=== PATIENT | male | born 1955 | race Caucasian/White ===

== ENCOUNTER 2020-02-18 03:29 | Outpatient (CLI) | payer MEDICARE, SELFPAY ==
[2020-02-19 20:07] LABS: SARS-CoV-2 RNA PCR Negative
== END 2020-02-18 03:30 | disposition home or self-care (01) ==
PROVIDERS: PCP Internal Medicine; Visit Provider Internal Medicine Gastroenterology
DX: Z01.812 Encounter for preprocedural laboratory examination (principal); Z11.59 Encounter for screening for other viral diseases
CPT/HCPCS: 87635; C9803; U0003

== ENCOUNTER 2020-02-20 02:19 | Day surgery (SDC) | payer MEDICARE, SELFPAY ==
[2020-02-12 10:13] VITALS: BMI 31.6
--- NOTE | 2020-02-19 12:47 | WPDANESEPPF ---
Anes - Initial Pre Proc Eval Procedure: Operation Date: 02/20/20 07:30 Proposed Procedures p Screening Colonoscopy - Cornel Payne MD Date/Time: 02/19/20 12:47 Surgeon: Cornel Payne MD Pre Op Diagnosis: Hx Colon Polyps Patient Data Age: 64 Gender: M Height: 5 ft 10 in Weight: 100 kg Allergies Allergy/AdvReac Type Severity Reaction Status Date / Time No Known Allergies Allergy Verified 02/20/20 06:18 Home Medications Medication Instructions Recorded Confirmed Type empagliflozin 10 mg tablet See Rx Instructions .ROUTE 01/02/20 02/12/20 Rx .COMPLEX #90 tablet lisinopril 20 mg tablet 20 mg PO DAILY #90 tablet 01/14/20 02/12/20 Rx pravastatin 20 mg tablet 20 mg PO DAILY #90 tablet 01/14/20 02/12/20 Rx glimepiride 4 mg tablet 4 mg PO QAM #90 tablet 01/30/20 02/12/20 Rx metformin 500 mg tablet 1,000 mg PO BID #360 tablet 01/30/20 02/12/20 Rx paroxetine HCl 20 mg tablet 20 mg PO DAILY #90 tablet 01/30/20 02/12/20 Rx Patient hx anesthesia problems: none Family hx anesthesia problems: none PMFSH Past Medical History Medical History (Updated 02/19/20 @ 12:47 by Anam Kemp MD) Diabetes Essential (primary) hypertension Hyperlipidemia Social History Social History Smoking status: Current every day smoker Second hand tobacco smoke exposure: No Alcohol intake: current Anes - Eval Final PreProcedure Day of Procedure 02/19/20 12:47 Patient weight: overweight Heart: regular rate and rhythm Lungs: clear to auscultation Airway: Mallampati scale class II Neurological: alert and oriented Last oral intake: >/= 8 hours ASA classification: III Emergent: no Anesthetic plan: proceed Anesthesia type and monitoring: general GIVS and standard monitoring Informed Consent: The patient's anesthetic plan and its attendant risks and benefits were discussed with the patient/family/POA. Questions were solicited and answers provided to the satisfaction of the patient/family/POA.
[2020-02-20 06:21] VITALS: BP 130/84; PULSE 86; RESP 21; TEMP 36.3; O2SAT 98; BMI 31.6
[2020-02-20] MEDS: LACTATED RINGERS 1,000 ML 150 ML IV CONT (06:35)
[2020-02-20 06:44] LABS: Glucose Point of Care 186 (65-105)
[2020-02-20 08:00] VITALS: BP 124/72; PULSE 74; RESP 30; O2SAT 97
--- NOTE | 2020-02-20 08:00 | P.CONGI_ITS ---
Assessment and Plan Assessment and plan (1) History of colon polyps: Code(s): Z86.010 - Personal history of colonic polyps Status: Acute Assessment and Plan: Patient has a history of colon polyps 10 years ago. Plan is for surveillance colonoscopy at this time. Further recommendations will be given after endoscopy. GI Consult Note Consult date/time: 02/20/20 08:00 HPI: James Barba is a 64 year old male Seen in evaluation at the request of Dr. Artemio Hernández. patient presents for screening colonoscopy. Patient's current weight appetite bowel movements are normal. Patient has a prior history of colon polyps about 10 years ago. Most recent colonoscopy 5 years ago was unrem arkable. Family history is noncontributory. Patient states his current weight appetite bowel movements are normal. He denies abdominal pain. No blood in his stool. Review of Systems Review of Systems: All systems reviewed & are unremarkable except as noted in HPI and below PMFSH Past Medical History Medical History Diabetes Essential (primary) hypertension Hyperlipidemia Family History Family History Mother Hypertension Father Family history of genitourinary disease Family history of Alzheimer's disease Sibling Family history of lung disease Social History Social History Smoking status: Current every day smoker Second hand tobacco smoke exposure: No Alcohol intake: current Meds Home Medications and Allergies Home Medications Medication Instructions Recorded Confirmed Type empagliflozin 10 mg tablet See Rx Instructions .ROUTE 01/02/20 02/12/20 Rx .COMPLEX #90 tablet lisinopril 20 mg tablet 20 mg PO DAILY #90 tablet 01/14/20 02/12/20 Rx pravastatin 20 mg tablet 20 mg PO DAILY #90 tablet 01/14/20 02/12/20 Rx glimepiride 4 mg tablet 4 mg PO QAM #90 tablet 01/30/20 02/12/20 Rx metformin 500 mg tablet 1,000 mg PO BID #360 tablet 01/30/20 02/12/20 Rx paroxetine HCl 20 mg tablet 20 mg PO DAILY #90 tablet 01/30/20 02/12/20 Rx Allergies Allergy/AdvReac Type Severity Reaction Status Date / Time No Known Allergies Allergy Verified 02/20/20 06:18 Vital Signs Vital Signs - 24 hr 02/20/20 06:21 Temperature 97.4 F L Pulse Rate 86 Respiratory Rate 21 H Blood Pressure 130/84 Pulse Oximetry 98 Exam Narrative: Exam Narrative: Physical exam reveals patient to be alert. Vital signs stable. HEENT exam unremarkable. Lungs are clear to auscultation and percussion. Heart is without murmur or extra sounds. Abdominal exam bowel sounds are present soft nontender with no organomegaly. Digital external rectal exam is normal.
[2020-02-20 08:10] VITALS: BP 127/83; PULSE 73; RESP 16; O2SAT 98
[2020-02-20 08:20] VITALS: BP 140/78; PULSE 70; RESP 19; O2SAT 99
== END 2020-02-20 08:43 | disposition home or self-care (01) ==
PROVIDERS: PCP Internal Medicine; Visit Provider Internal Medicine Gastroenterology
PROC: 0DJD8ZZ Inspection of Lower Intestinal Tract, Via Natural or Artificial Opening Endoscopic (ICD-10-PCS; CPT 45378; principal; 2020-02-20 07:30)
DX: Z12.11 Encounter for screening for malignant neoplasm of colon (principal); K64.8 Other hemorrhoids; Z86.010 Personal history of colon polyps; I10 Essential (primary) hypertension; E11.9 Type 2 diabetes mellitus without complications; E78.5 Hyperlipidemia, unspecified; F17.200 Nicotine dependence, unspecified, uncomplicated
CPT/HCPCS: G0105; 87635; C9803; J2704; J7120; U0003

== ENCOUNTER 2020-07-10 07:02 | Outpatient (NON) | payer MEDICARE, SELFPAY ==
[2020-07-10 22:01] LABS: SARS-CoV-2 RNA PCR Negative
== END 2020-07-10 07:03 ==
LOC: ANHCOVIDDT 07:15
PROVIDERS: PCP Internal Medicine; Visit Provider Internal Medicine
DX: Z20.828 Contact with and (suspected) exposure to other viral communicable diseases (principal); J02.9 Acute pharyngitis, unspecified
CPT/HCPCS: 87635; C9803; U0003

== ENCOUNTER → 2020-09-29 14:21 | Outpatient (CLI) | payer MEDICARE, SELFPAY ==
--- NOTE | ~2020-09-29 | XR_ITS ---
EXAMINATION: XR knee LT 3V DATE: 09/29/2020 14:40 INDICATION: Left knee pain. TECHNIQUE: 3 views of left knee were obtained. COMPARISON: Left knee radiographs 06/18/2005 FINDINGS: There is lateral subluxation of patella. No fracture. There is moderate osteoarthritis of l ateral and patellofemoral compartments and mild osteoarthritis of medial compartment. There is a mode rate-sized knee joint effusion. IMPRESSION: 1. Moderate left knee osteoarthritis. 2. Moderate-sized left knee joint effusion. Reviewed, dictated and finalized at location A. NICS REPAIR TECHNICIAN
--- NOTE | ~2020-09-29 | XR_ITS ---
EXAMINATION: XR knee RT 3V DATE: 09/29/2020 14:40 INDICATION: Right knee pain. TECHNIQUE: 3 views of right knee were obtained. COMPARISON: None. FINDINGS: Bone alignment is normal. No fracture. There is mild tricompartmental osteoarthritis. No kn ee joint effusion. IMPRESSION: 1. Mild right knee osteoarthritis. Reviewed, dictated and finalized at location A. NDS CREW SUPERVISOR
== END ==
PROVIDERS: PCP Internal Medicine; Visit Provider Internal Medicine
DX: M17.0 Bilateral primary osteoarthritis of knee (principal); M25.462 Effusion, left knee
CPT/HCPCS: 73562

== ENCOUNTER 2023-04-27 10:26 | Outpatient (CLI) | payer MEDICARE, SELFPAY ==
--- NOTE | 2023-04-27 10:45 | ECG_ITS ---
Measurements Intervals [place] Rate: 75 P: 54 MN: 192 QRS: -38 QRSD: 105 T: 16 QT: 376 QTc: 421 Interpretive Statements SINUS RHYTHM WITH OCCASIONAL SUPRAVENTRICULAR PREMATURE COMPLEXES MARKED LEFT AXIS DEVIATION [QRS AXIS < -30] NO PREVIOUS ECG AVAILABLE FOR COMPARISON Electronically Signed On 04-27-2023 19:15:44 CDT by Stacey Guy M.D.
== END 2023-04-27 10:27 | disposition home or self-care (01) ==
LOC: ANHIMG 10:30
PROVIDERS: PCP Internal Medicine; Visit Provider Anesthesiology
DX: M72.0 Palmar fascial fibromatosis [Dupuytren] (principal); Z01.818 Encounter for other preprocedural examination
CPT/HCPCS: 93005

== ENCOUNTER 2023-05-05 05:43 | Day surgery (SDC) | payer MEDICARE, SELFPAY ==
[2023-04-19 10:41] VITALS: BMI 32.5
--- NOTE | 2023-05-04 20:07 | WPDANESEPPF ---
Anes - Initial Pre Proc Eval Procedure: Operation Date: 05/05/23 07:30 Proposed Procedures p Left Small, Ring, Middle Finger and Thumb Dupuytren's Fasciectomy, Possible Proximal Interphalangeal Capsulotomy - Frandy Rios MD Date/Time: 05/04/23 20:07 Surgeon: Frandy Rios MD Pre Op Diagnosis: Palmar Fascial Fibromatosis,Dupuytrens Contracture Patient Data Age: 67 Gender: M Height: 1.75 m Weight: 100 kg Allergies Allergy/AdvReac Type Severity Reaction Status Date / Time No Known Allergies Allergy Verified 05/05/23 06:50 Home Medications Medication Instructions Recorded Confirmed Type empagliflozin 25 mg tablet 25 mg PO QAM 90 days #90 tabs 04/05/22 05/05/23 Rx (Jardiance) blood sugar diagnostic (OneTouch #100 ea 08/27/22 05/05/23 Rx Ultra Test strips) mecobalamin (vitamin B12) 1,000 1,000 mcg PO DAILY #90 tabs 09/24/22 05/05/23 Rx mcg chewable tablet atorvastatin 20 mg tablet 20 mg PO DAILY 10/14/22 05/05/23 History metformin 500 mg tablet 1,000 mg PO BID #360 tabs 12/16/22 05/05/23 Rx sildenafil 100 mg tablet 100 mg PO DAILY PRN sexual 02/17/23 05/05/23 Rx activity #8 tabs glimepiride 1 mg tablet 1 mg PO QPM #180 tabs 02/22/23 05/05/23 Rx semaglutide 0.25 mg or 0.5 mg (2 0.25 mg (0.368 mL) subcut WEEKLY 02/22/23 05/05/23 Rx mg/3 mL) subcutaneous pen injector #3 mL (Ozempic) paroxetine HCl 20 mg tablet 20 mg PO DAILY #90 tabs 03/04/23 05/05/23 Rx lisinopril 20 mg tablet 20 mg PO DAILY #90 tabs 04/17/23 05/05/23 Rx Patient hx anesthesia problems: none Family hx anesthesia problems: none Results Review: All pre-operative results and documents have been reviewed as part of the pre-operative evaluation. [facility] Past Medical History Medical History (Updated 08/14/23 @ 10:23 by Frandy Rios MD) Diabetes Dupuytren's contracture of both hands Epidermoid cyst of face Essential (primary) hypertension Fatigue History of colon polyps Hyperlipidemia Joint contracture Numbness in both hands Other fatigue Prostate cancer screening Psoriasis, unspecified Pure hypercholesterolemia Sore throat Type 2 diabetes mellitus with other specified complication Type 2 diabetes mellitus without complications Surgical History Surgical History History of hand surgery History of left knee surgery meniscus repair Hx of repair of rotator cuff right shoulder Family History Family History Mother Hypertension Father Family history of genitourinary disease Family history of Alzheimer's disease Sibling Family history of lung disease Social History Social History Smoking packs per day: 1 Smoking cigarettes per day: 20.0 Years smoked: 40 Smoking pack-years: 40.00 Smoking status: Former smoker Tobacco type: cigarettes Second hand tobacco smoke exposure: No Smoking end date: 07/29/19 Alcohol intake: current Alcohol use details: 2-3 x per week Substance use: never Substance use type: does not use Lack of Transportation: No Lack of Food: Never True Current Housing: I Have Housing Concerned About Future Housing: No Difficulty Paying Gas/Electric Bills: No Difficulty Paying for Meds: No Currently Unemployed: No Education: High School Diploma/GED Difficulty w/ Childcare or Family Care: No Living arrangements: with family Spiritual care concerns: No Anes - Eval Final PreProcedure Day of Procedure 05/04/23 20:07 Patient weight: obese Heart: regular rate and rhythm Lungs: clear to auscultation Airway: Mallampati scale class II Neurological: alert and oriented Last oral intake: >/= 8 hours ASA classification: III Emergent: no Anesthetic plan: proceed Anesthesia type and monitoring: general LMA and standard monitoring Results Review: All pre-operative r
[2023-05-05] VITALS (7 sets, daily range): BP systolic 95–140; BP diastolic 45–92; PULSE 68–70; RESP 14–20; TEMP 36.3–36.7; O2SAT 96–100
[2023-05-05 06:46] LABS: Glucose Point of Care 147 mg/dl (65-105)
[2023-05-05] MEDS: LACTATED RINGERS 1,000 ML 30 ML IV CONT (06:59)
--- NOTE | 2023-05-05 07:18 | WPDHPUPDATE1 ---
History and Physical Update Update Date/Time: 05/05/23 07:18 Patient seen and examined in pre-operative holding area. No interval change in medical history or symptoms. Continues to desire to proceed with left small, ring, middle, thumb fasciectomy . Reviewed [id number], post-op expectations and risks including but not limited to bleeding, infection, injury to tendon/nerve/vessel, decreased hand function, stiffness, RSD, recurrence, incomplete release, no change or worsening of symptoms. Patient stated understanding and signed the consent form wishing to proceed.
--- NOTE | 2023-05-05 07:26 | PM.HPGS ---
History of Present Illness History of Present Illness Consent: Risks, benefits, and alternatives have been discussed and questions answered. Patient agrees to proceed with procedure. Chief complaint: Palmar Fascial Fibromatosis,Dupuytrens Contracture Narrative: James Barba is a 67 year old male here for left hand surgery. no interval change. see h&p update Review of Systems Review of Systems: systems reviewd and all within normal limits PMFSH Past Medical History Medical History (Updated 03/07/23 @ 10:23 by Frandy Rios MD) Diabetes Dupuytren's contracture of both hands Epidermoid cyst of face Essential (primary) hypertension Fatigue History of colon polyps Hyperlipidemia Joint contracture Numbness in both hands Other fatigue Prostate cancer screening Psoriasis, unspecified Pure hypercholesterolemia Sore throat Type 2 diabetes mellitus with other specified complication Type 2 diabetes mellitus without complications Surgical History Surgical History History of hand surgery History of left knee surgery meniscus repair Hx of repair of rotator cuff right shoulder Family History Family History Mother Hypertension Father Family history of genitourinary disease Family history of Alzheimer's disease Sibling Family history of lung disease Social History Social History Smoking packs per day: 1 Smoking cigarettes per day: 20.0 Years smoked: 40 Smoking pack-years: 40.00 Smoking status: Former smoker Tobacco type: cigarettes Second hand tobacco smoke exposure: No Smoking end date: 07/29/19 Alcohol intake: current Alcohol use details: 2-3 x per week Substance use: never Substance use type: does not use Lack of Transportation: No Lack of Food: Never True Current Housing: I Have Housing Concerned About Future Housing: No Difficulty Paying Gas/Electric Bills: No Difficulty Paying for Meds: No Currently Unemployed: No Education: High School Diploma/GED Difficulty w/ Childcare or Family Care: No Living arrangements: with family Spiritual care concerns: No Meds Home Medications and Allergies Home Medications Medication Instructions Recorded Confirmed Type empagliflozin 25 mg tablet 25 mg PO QAM 90 days #90 tabs 04/05/22 05/05/23 Rx (Jardiance) blood sugar diagnostic (OneTouch #100 ea 08/27/22 05/05/23 Rx Ultra Test strips) mecobalamin (vitamin B12) 1,000 1,000 mcg PO DAILY #90 tabs 09/24/22 05/05/23 Rx mcg chewable tablet atorvastatin 20 mg tablet 20 mg PO DAILY 10/14/22 05/05/23 History metformin 500 mg tablet 1,000 mg PO BID #360 tabs 12/16/22 05/05/23 Rx sildenafil 100 mg tablet 100 mg PO DAILY PRN sexual 02/17/23 05/05/23 Rx activity #8 tabs glimepiride 1 mg tablet 1 mg PO QPM #180 tabs 02/22/23 05/05/23 Rx semaglutide 0.25 mg or 0.5 mg (2 0.25 mg (0.368 mL) subcut WEEKLY 02/22/23 05/05/23 Rx mg/3 mL) subcutaneous pen injector #3 mL (Ozempic) paroxetine HCl 20 mg tablet 20 mg PO DAILY #90 tabs 03/04/23 05/05/23 Rx lisinopril 20 mg tablet 20 mg PO DAILY #90 tabs 04/17/23 05/05/23 Rx Allergies Allergy/AdvReac Type Severity Reaction Status Date / Time No Known Allergies Allergy Verified 05/05/23 06:50 Vital Signs Vital Signs - 24 hr 05/05/23 06:30 Temperature 36.3 C L Pulse Rate 68 Respiratory Rate 20 Blood Pressure 140/92 H Pulse Oximetry 99 Oxygen Delivery Room Air Exam Extrem: Other: CV: RRR Pulm: ctab hand exam unchanged Assessment and Plan Assessment and plan (1) Dupuytren's contracture of both hands: Code(s): M72.0 - Palmar fascial fibromatosis [Dupuytren] Status: Acute Plan cont with surgery as noted in H&P update
[2023-05-05] MEDS: ceFAZolin SODIUM 2 GM/20 ML SW SYRINGE IV PUSH (07:34)
[2023-05-05] MEDS: LIDOCAINE HCL 1% LOCAL INJ 20 ML VIAL 5 ML INFILTRATE (07:40)
[2023-05-05] MEDS: BUPivacaine HCL 0.25% PF 10 ML VIAL 5 ML INFILTRATE (07:40)
--- NOTE | 2023-05-05 09:08 | W.PM.PROC2 ---
Procedure Note - Detailed Date of Procedure 05/05/23 Pre-op Diagnosis left thumb, small, ring, middle finger dupuytren contracture Post-op Diagnosis Same Procedure Performed left thumb, small, ring, middle finger palmar fasciectomy and left small and ring finger pipjoint capsulotomy Surgeon Frandy Rios MD Anesthesia General Description of Procedure Patient was seen in the preoperative holding area. The left fingers were marked and consent form signed. Patient was taken back to the operating room on the stretcher in the supine position. Time-out was performed with anaesthesia surgeon staff a Gram patient's name site of surgery performed. SCDs were placed the larger was inflated. Antibiotics were given IV. A tourniquet was placed on left upper extremity was prepped and draped in usual sterile fashion. After general anesthesia was administered left which was pretty diffuse oral fashion and I injected 10 cc of 1% lidocaine in 0.25% Marcaine plain amongst the operative site the left upper extremities in exam with Esmarch bandage and tourniquet inflated to 250 mmHg. I 1st took my attention to the left ring finger where I made a longitudinal incision over the large central cord with a 15 blade scalpel. I elevated skin flaps above the cord. I identified the origin of the cord proximally and circumferentially dissected around it with a Littler scissor. It was then transected with a 15 blade scalpel. Then proceed with anterograde dissection of the cord across the MP joint and PIP joints in its entirety. The neurovascular bundles were protected and identified throughout the procedure. After removal of all palmar fascial abnormal material there was still stiffness in the PIP joint. I proceeded with release of the accessory and partial collateral ligament and volar plate release until I was able to achieve full extension of the left ring finger PIP joint. Irrigated with normal saline. I noted my attention to the left small finger were made again a longitudinal incision over the large prominent cord from the palm past the PIP joint elevated skin flaps identified the cord proximally circumferentially dissected around it. Transected the cord and then proceeded with anterograde dissection. The neurovascular bundles are identified and protected throughout the procedure as noting that there was involvement and wrapping around of the fascia on the radial digital nerve. This was carefully dissected out the nerve appeared intact after completion of cord resection. Once all abnormal palmar fascia was excised of the left small finger again it was noted that there was significant stiffness and contracture of the PIP joint I dissected with Littler scissors down to the volar plate and proceeded with release of the accessory collateral ligaments and volar plate. At this point I was now able to achieve full extension of the PIP joint. Area with normal saline a high carried the dissection side going back to the middle finger at this point from a previously made incision and was able to release the cord going to the middle finger across the MP joint until this was able to be straightened with without tension. Note that there was no significant radial or ulnar laxity to the PIP joints after capsulotomy. The joints appeared stable. Next I took my attention to the left thumb were made a longitudinal incision over the prominent cord and contracture at the MP joints through skin and dermis with a 15 blade scalpel elevated skin flaps a 15 blade scalpel Littler scissors identified the cord proximally circumferentially dissected around it. I transected the cord and proceed with antegrade dissection until this was completely removed. Irrigated with normal saline Z-plasties were designed as necessary to cross the flexion creases and after irrigation closure was performed with 4-0 chromic suture. The tourniquet was let down the fingers are warm well perfused with good cap r
--- NOTE | 2023-05-05 13:51 | WPDANESPN ---
Anes - Prog Note Post-Op Date/Time: 05/05/23 13:51 Vital Signs: Last Vital Signs Temp 36.7 C 05/05/23 09:09 Pulse 70 05/05/23 10:00 Resp 18 05/05/23 10:00 BP 110/62 05/05/23 10:00 Pulse Ox 100 05/05/23 10:00 O2 Del Method Room Air 05/05/23 10:00 Pain Score (VAS): 1 I/O: Intake & Output 05/04/23 05/05/23 05/05/23 23:59 07:59 15:59 Intake Total 700 Balance 700 05/05/23 06:43 POC Capillary Glucose 147 H Patient Feedback: Patient satisfied with anesthetic care.
== END 2023-05-05 10:20 | disposition home or self-care (01) ==
PROVIDERS: PCP Internal Medicine; Visit Provider Plastic Surgery
PROC: (CPT 26045; principal; 2023-05-05 07:30)
DX: M72.0 Palmar fascial fibromatosis [Dupuytren] (principal)
CPT/HCPCS: 26123; 26125 ×3

== ENCOUNTER 2023-05-05 07:00 | Outpatient (NON) | payer MEDICARE, SELFPAY | END 2023-05-05 07:01 | disposition home or self-care (01) | PROVIDERS: PCP Internal Medicine; Visit Provider Plastic Surgery | DX: M24.549 Contracture, unspecified hand (principal) | CPT/HCPCS: 88305 ==

== ENCOUNTER 2023-08-22 10:28 | Outpatient (CLI) | payer MEDICARE, SELFPAY ==
[2023-08-22 11:13] LABS: Anion Gap 8 mmol/L (8-16); Blood Urea Nitrogen 19 mg/dL (9-20); Calcium 9.5 mg/dL (8.4-10.2); Carbon Dioxide 25 mmol/L (22-30); Chloride 101 mmol/L (98-107); Estimated Glomerular Filt Rate > 60; Glucose 243 mg/dL (65-110); Potassium 4.9 mmol/L (3.4-5.0); Sodium 134 mmol/L (137-145)
== END 2023-08-22 10:29 | disposition home or self-care (01) ==
LOC: ANHSURGERY 10:32
PROVIDERS: Anesthesiology; Visit Provider Plastic Surgery
DX: E11.9 Type 2 diabetes mellitus without complications (principal); Z01.818 Encounter for other preprocedural examination
CPT/HCPCS: 36415; 80048

== ENCOUNTER 2023-08-26 00:23 | Day surgery (SDC) | payer MEDICARE, SELFPAY ==
[2023-08-19 09:05] VITALS: BMI 30.2
--- NOTE | 2023-08-19 09:16 | PC.NURSE ---
PRE-OP INSTRUCTIONS, PLEASE READ CAREFULLY Report to the Outpatient Waiting Room, entrance under the green pavilion located off [facility], at time _0600_ on date _08/26/23_. Planned Procedure Time: _0730_. Time changes happen often and if your time is changed the preop area will call you the afternoon before. - You and your visitor will be asked to self-screen and do not enter if you have any COVID symptoms. - A mask is optional within the hospital at this time. - No food/fluids from midnight until time of surgery Take the following medications with a SIP of water the morning of surgery: _PAROXETINE, ADVAIR INHALER _ DO NOT STOP ANY OF YOUR OTHER PRESCRIPTION MEDICATIONS PRIOR TO SURGERY ?EXCEPT THE FOLLOWING Medications to discontinue per physician ____NONE , Date to take last dose Please no make-up, nail bulgarian, hairspray, perfume, deodorant, or body powder the day of surgery. No jewelry (including any body piercings) or valuables the day of surgery, leave them at home. Please take a shower or bath the night before, or the morning of, surgery with an antibacterial soap. Wear comfortable, loose fitting clothing. Children are encouraged to wear pajamas. - Jewelry must be removed prior to entering the operating room. Rings and piercings that are not removed may be cut off. - The hospital will not accept responsibility for valuables. - Please leave all valuables, including medications, at home the day of surgery. If you are going home after surgery, a licensed sales route driver helper must drive you home. - NO public transportation without another adult if you receive anesthesia. - We recommend that an adult stay with you for 24 hours following discharge. - We also recommend that you do not drive, make important decision, drink alcoholic beverages, or take any drugs that were not prescribed by your health care provider for at least 24 hours after your discharge time. Follow any additional instructions given to you from your surgeon. If you or anyone in your household have experienced Covid symptoms in the past week, please notify your surgeon or the nurse liaison at the phone number below for possible testing. Telephone instructions given to _PATIENT_and asked if any additional questions and then verbalized understanding. Patient advised to call surgeon office or pre surgery nurse liaison [phone] if any additional questions.
[2023-08-26 06:45] VITALS: BP 119/72; PULSE 69; RESP 16; TEMP 36.1; O2SAT 97
[2023-08-26] MEDS: LACTATED RINGERS 1,000 ML 30 ML IV CONT (06:45)
--- NOTE | 2023-08-26 06:49 | PM.HPGS ---
History of Present Illness History of Present Illness Chief complaint: Dupuytren's contracture right hand Narrative: Patient seen and examined in pre-operative holding area. No interval change in medical history or symptoms. Patient recalls previous discussion of benefits and alternatives to procedure. Continues to desire to proceed with right thumb middle ring and small finger fasciectomy for dupuytren's possible capsulotomy. Reviewed procedure, post-op expectations and risks including but not limited to bleeding, infection, injury to tendon/nerve/vessel, decreased hand function, stiffness, RSD, no change or worsening of symptoms, recurrence, incomplete release. I discussed the possible use of assistants and their participation in the case. Patient stated understanding and signed the consent form wishing to proceed. Review of Systems Review of Systems: All systems reviewed & are unremarkable except as noted in HPI and below PMFSH Past Medical History Medical History Diabetes Dupuytren's contracture of both hands Epidermoid cyst of face Essential (primary) hypertension Fatigue History of colon polyps Hyperlipidemia Joint contracture Numbness in both hands Other fatigue Prostate cancer screening Psoriasis, unspecified Pure hypercholesterolemia Sore throat Type 2 diabetes mellitus with other specified complication Type 2 diabetes mellitus without complications Surgical History Surgical History History of hand surgery History of left knee surgery meniscus repair Hx of repair of rotator cuff right shoulder Family History Family History Mother Hypertension Father Family history of genitourinary disease Family history of Alzheimer's disease Sibling Family history of lung disease Social History Social History Smoking packs per day: 1 Smoking cigarettes per day: 20.0 Years smoked: 40 Smoking pack-years: 40.00 Smoking status: Former smoker Tobacco type: cigarettes Second hand tobacco smoke exposure: No Smoking end date: 07/29/19 Alcohol intake: current Drinks per week: 3 Alcohol use details: 2-3 x per week Substance use: never Substance use type: does not use Lack of Transportation: No Lack of Food: Never True Current Housing: I Have Housing Concerned About Future Housing: No Difficulty Paying Gas/Electric Bills: No Difficulty Paying for Meds: No Currently Unemployed: No Education: High School Diploma/GED Difficulty w/ Childcare or Family Care: No Living arrangements: with family Spiritual care concerns: No Meds Home Medications and Allergies Home Medications Medication Instructions Recorded Confirmed Type blood sugar diagnostic (OneTouch #100 ea 08/27/22 08/26/23 Rx Ultra Test strips) mecobalamin (vitamin B12) 1,000 1,000 mcg PO DAILY #90 tabs 09/24/22 08/26/23 Rx mcg chewable tablet sildenafil 100 mg tablet 100 mg PO DAILY PRN sexual 02/17/23 08/26/23 Rx activity #8 tabs paroxetine HCl 20 mg tablet 20 mg PO DAILY #90 tabs 03/04/23 08/26/23 Rx lisinopril 20 mg tablet 20 mg PO DAILY #90 tabs 04/17/23 08/26/23 Rx empagliflozin 25 mg tablet 25 mg PO QAM 90 days #90 tabs 06/03/23 08/26/23 Rx (Jardiance) metformin 500 mg tablet 1,000 mg PO BID #360 tabs 06/03/23 08/26/23 Rx glimepiride 4 mg tablet See Rx Instructions .Route 06/12/23 08/26/23 Rx .COMPLEX #90 tabs atorvastatin 20 mg tablet See Rx Instructions .Route 07/20/23 08/26/23 Rx .COMPLEX #90 tabs fluticasone 100 mcg-salmeterol 50 1 inh inhalation Q12H #60 ea 07/21/23 08/26/23 Rx mcg/dose blistr powdr for inhalation (Advair Diskus) tramadol 50 mg tablet 50 mg PO Q6H PRN pain #12 tabs 08/26/23 Rx Allergies Allergy/AdvReac Type Severity Reaction Status Date
--- NOTE | 2023-08-26 06:50 | W.PM.PROC2 ---
Procedure Note - Detailed Date of Procedure 08/26/23 Pre-op Diagnosis Dupuytren's contracture right thumb, middle, ring, small fingers Post-op Diagnosis Same Procedure Performed right thumb middle ring and small finger fasciectomy Surgeon Frandy Rios MD [employer] Amy Romo PA-C Anesthesia MAC Description of Procedure INFORMED CONSENT: The patient was seen and examined and marked in the pre-op area.? The patient signed the consent form. PROCEDURE IN DETAIL:The patient taken back to OR on the stretcher in supine position. Time out performed with anesthesia, surgeon and staff agreeing on patient's name site and surgery to be performed SCDs were placed on the lower extremities and inflated. A tourniquet was placed on {right} upper extremity and antibiotics given IV After anesthesia administered sedation I injected {10}cc 1%lido and 0.5% marcaine plain at the operative site The?{right upper extremity}?was prepped and draped in sterile fashion the??{right upper extremity} was? exsanguinated with Esmarch bandage and tourniquet inflated to 250mmHg First I took my attention to the right thumb where I used a 15 blade scalpel to make an incision from the palm across the mpj flexion crease over the fascial cord through skin and dermis. I sharply elevated skin flaps and then using littler scissors dissected around the cord proximally. The neurovascular bundles were idenitifed and protected throughout the procedure. I transected the cord proximally and proceeded with anterograde dissection and resection of the cord til I was able to achieve full extension of the thumb mpjoint. Next I took attention to the middle finger where I made an incision over the central cord with 15 blade through skin and dermis crossing the mpjoint flexion crease. I sharply elevated skin flaps and then using littler scissors dissected around the cord proximally. The neurovascular bundles were identifed and protected throughout the procedure. I transected the cord proximally and proceeded with anterograde dissection and resection of the cord til I was able to achieve full extension of the mpjoint and pipjoint. Next I took attention to the ring finger where I made an incision over the central cord with 15 blade through skin and dermis crossing the mpjoint flexion crease. I sharply elevated skin flaps and then using littler scissors dissected around the cord proximally. The neurovascular bundles were identifed and protected throughout the procedure. I transected the cord proximally and proceeded with anterograde dissection and resection of the cord til I was able to achieve full extension of the mpjoint and pipjoint. Next I took attention to the small finger where I made an incision over the central cord with 15 blade through skin and dermis crossing the mpjoint flexion crease. I sharply elevated skin flaps and then using littler scissors dissected around the cord proximally. The neurovascular bundles were identifed and protected throughout the procedure. I transected the cord proximally and proceeded with anterograde dissection and resection of the cord til I was able to achieve full extension of the mpjoint and pipjoint. Z-plasties were constructed to cross the flexion creases. I irrigated with normal saline and the incisions were closed with 4-0 chromic A dressing of xeroform, 4x4, marcellus, and a volar splint with the fingers in straight position was applied for patient safety, security, and comfort and secured with an dexter bandage after the tourniquet was let down noting the hand was warm and well perfused. The patient was then awaken from anesthesia and transferred to the recovery room in stable condition.? Complications - none EBL- 0cc Disposition - home in stable conditions Amy Romo PA-C was essential for positioning, retraction, closure, drssing placement [facility] Billing Surgery - Charge Forward: Surgery Billing ([id number] sa
[2023-08-26 07:03] LABS: Glucose Point of Care 118 mg/dl (65-105)
--- NOTE | 2023-08-26 07:20 | WPDANESEPPF ---
Anes - Initial Pre Proc Eval Procedure: Operation Date: 08/26/23 07:30 Proposed Procedures p Right Thumb,Middle, Ring and Small Finger Fasciectomy for Dupuytren's - Frandy Rios MD Date/Time: 08/26/23 07:20 Surgeon: Frandy Rios MD Pre Op Diagnosis: Dupuytren's contracture right hand Patient Data Age: 67 Gender: M Height: 1.78 m Weight: 94.9 kg Last Vital Signs Temp 36.1 C L 08/26/23 06:45 Pulse 69 08/26/23 06:45 Resp 16 08/26/23 06:45 BP 119/72 08/26/23 06:45 Pulse Ox 97 08/26/23 06:45 O2 Del Method Room Air 08/26/23 06:45 Allergies Allergy/AdvReac Type Severity Reaction Status Date / Time No Known Allergies Allergy Verified 08/26/23 07:04 Home Medications Medication Instructions Recorded Confirmed Type blood sugar diagnostic (OneTouch #100 ea 08/27/22 08/26/23 Rx Ultra Test strips) mecobalamin (vitamin B12) 1,000 1,000 mcg PO DAILY #90 tabs 09/24/22 08/26/23 Rx mcg chewable tablet sildenafil 100 mg tablet 100 mg PO DAILY PRN sexual 02/17/23 08/26/23 Rx activity #8 tabs paroxetine HCl 20 mg tablet 20 mg PO DAILY #90 tabs 03/04/23 08/26/23 Rx lisinopril 20 mg tablet 20 mg PO DAILY #90 tabs 04/17/23 08/26/23 Rx empagliflozin 25 mg tablet 25 mg PO QAM 90 days #90 tabs 06/03/23 08/26/23 Rx (Jardiance) metformin 500 mg tablet 1,000 mg PO BID #360 tabs 06/03/23 08/26/23 Rx glimepiride 4 mg tablet See Rx Instructions .Route 06/12/23 08/26/23 Rx .COMPLEX #90 tabs atorvastatin 20 mg tablet See Rx Instructions .Route 07/20/23 08/26/23 Rx .COMPLEX #90 tabs fluticasone 100 mcg-salmeterol 50 1 inh inhalation Q12H #60 ea 07/21/23 08/26/23 Rx mcg/dose blistr powdr for inhalation (Advair Diskus) tramadol 50 mg tablet 50 mg PO Q6H PRN pain #12 tabs 08/26/23 Rx Laboratory Tests 08/26/23 07:00 POC Capillary Glucose 118 H mg/dl (65-105) Patient hx anesthesia problems: none Family hx anesthesia problems: none Results Review: All pre-operative results and documents have been reviewed as part of the pre-operative evaluation. [facility] Past Medical History Medical History Diabetes Dupuytren's contracture of both hands Epidermoid cyst of face Essential (primary) hypertension Fatigue History of colon polyps Hyperlipidemia Joint contracture Numbness in both hands Other fatigue Prostate cancer screening Psoriasis, unspecified Pure hypercholesterolemia Sore throat Type 2 diabetes mellitus with other specified complication Type 2 diabetes mellitus without complications Surgical History Surgical History History of hand surgery History of left knee surgery meniscus repair Hx of repair of rotator cuff right shoulder Family History Family History Mother Hypertension Father Family history of genitourinary disease Family history of Alzheimer's disease Sibling Family history of lung disease Social History Social History Smoking packs per day: 1 Smoking cigarettes per day: 20.0 Years smoked: 40 Smoking pack-years: 40.00 Smoking status: Former smoker Tobacco type: cigarettes Second hand tobacco smoke exposure: No Smoking end date: 07/29/19 Alcohol intake: current Drinks per week: 3 Alcohol use details: 2-3 x per week Substance use: never Substance use type: does not use Lack of Transportation: No Lack of Food: Never True Current Housing: I Have Housing Concerned About Future Housing: No Difficulty Paying Gas/Electric Bills: No Difficulty Paying for Meds: No Currently Unemployed: No Education: High School Diploma/GED Difficulty w/ Childcare or Family Care: No Living arrangements: with family Spiritual care concerns: No Wesley - Cruz Lama
[2023-08-26] MEDS: ceFAZolin 2 GM/D5W 50 ML 2 GM/50 ML BAG IVPB (07:29)
[2023-08-26] MEDS: LIDOCAINE HCL 1% LOCAL INJ 20 ML VIAL 5 ML INFILTRATE (07:49)
[2023-08-26] MEDS: BACITRACIN ZINC OINTMENT 0.9 GRAM PACKET 1 PACKET TOPICAL (07:49)
[2023-08-26 08:34] VITALS: BP 111/66; PULSE 68; RESP 16; O2SAT 96
[2023-08-26 08:40] LABS: Glucose Point of Care 131 mg/dl (65-105)
[2023-08-26 09:00] VITALS: BP 105/61; PULSE 66; RESP 16; O2SAT 96
== END 2023-08-26 09:33 | disposition home or self-care (01) ==
PROVIDERS: PCP Internal Medicine; Visit Provider Plastic Surgery
PROC: (CPT 26045; principal; 2023-08-26 07:30)
DX: M72.0 Palmar fascial fibromatosis [Dupuytren] (principal); I10 Essential (primary) hypertension; E11.9 Type 2 diabetes mellitus without complications; E78.00 Pure hypercholesterolemia, unspecified; Z87.891 Personal history of nicotine dependence; Z79.84 Long term (current) use of oral hypoglycemic drugs
CPT/HCPCS: 26123; 26125 ×3; 36415; 80048; 82948; 88305; A9270; J0690; J1100; J2250; J2405; J2704; J7120

== ENCOUNTER 2023-10-11 14:24 | Outpatient (CLI) | payer MEDICARE, SELFPAY ==
--- NOTE | ~2023-10-11 | XR_ITS ---
XR knee RT min 4V DATE: 10/11/2023 14:44 INDICATION: Unilateral right hip primary osteoarthritis TECHNIQUE: Weightbearing AP, PA, lateral views, sunrise view COMPARISON: None FINDINGS: Mild periarticular spurring is noted at the medial, lateral and to a greater extent patello femoral compartments. Moderate loss of compartment joint space. Knee joint spaces are otherwise relat ively preserved. Very small suprapatellar knee joint effusion is suggested. No fracture, dislocation, periosteal reaction or bone destruction, radiopaque intra-articular loose b sekou or chondrocalcinosis is noted. Femoral, popliteal and trifurcation artery calcifications. IMPRESSION: Osteoarthritis Small knee joint effusion Reviewed, dictated and finalized at location L.
--- NOTE | ~2023-10-11 | XR_ITS ---
XR knee LT min 4V DATE: 10/11/2023 14:44 INDICATION: Primary osteoarthritis TECHNIQUE: Embarrass and weightbearing AP, PA and lateral views COMPARISON: None FINDINGS: There is a prominent periarticular spurring at the patellofemoral compartment. There is severe loss of medial compartment joint space with near [id number], with prominent periart icular spurring. Mild periarticular spurring at the lateral compartment. There is valgus deformity of the left knee. Mild suprapatellar knee joint effusion is suggested. No fracture, dislocation, periosteal reaction or bone destruction is evident. No radiopaque intra-articular loose body or chondrocalcinosis is evident. Prominent femoral and popliteal and trifurcation artery calcifications. IMPRESSION: Severe osteoarthritis, particularly at the lateral compartment Valgus deformity of the knee Small knee joint effusion Reviewed, dictated and finalized at location L.
== END 2023-10-11 14:25 | disposition home or self-care (01) ==
LOC: ANHIMG 14:28
PROVIDERS: PCP Internal Medicine; Visit Provider Orthopaedic Surgery
DX: M17.0 Bilateral primary osteoarthritis of knee (principal); M21.062 Valgus deformity, not elsewhere classified, left knee; M25.462 Effusion, left knee; M25.461 Effusion, right knee
CPT/HCPCS: 73564

== ENCOUNTER 2023-11-08 13:32 | Outpatient (CLI) | payer MEDICARE, SELFPAY ==
--- NOTE | 2023-11-08 14:45 | NEURO_ITS ---
Impression: # Complains of numbness of hands. Status post Dupytren?s Contracture surgery. # Bilateral Carpal Tunnel Syndrome, right more than left. # Left ulnar neuropathy across the elbow. # Abnormal needle/EMG exam. Nerve Conduction Studies Anti Sensory Summary Table Stim Site NR Peak (ms) P-T Amp (?V) Site1 Site2 Delta-P (ms) Dist (cm) Erickson (m/s) Left Median Anti Sensory (2-3nd Digit) Wrist 4.9 16.1 Wrist 2-3nd Digit 4.9 14.0 29 Wrist 5.8 23.3 Wrist 2-3nd Digit 4.9 14.0 29 Right Median Anti Sensory (2-3nd Digit) Wrist 7.1 14.3 Wrist 2-3nd Digit 7.1 14.0 20 Wrist 6.7 13.9 Wrist 2-3nd Digit 7.1 14.0 20 Left Radial Anti Sensory (Base 1st Digit) Wrist 1.9 24.8 Wrist Base 1st Digit 1.9 0.0 Right Radial Anti Sensory (Base 1st Digit) Wrist 2.2 8.7 Wrist Base 1st Digit 2.2 0.0 Left Ulnar Anti Sensory (5th Digit) Wrist 2.8 15.6 Wrist 5th Digit 2.8 14.0 50 Right Ulnar Anti Sensory (5th Digit) Wrist 2.4 30.6 Wrist 5th Digit 2.4 14.0 58 Motor Summary Table Stim Site NR Onset (ms) O-P Amp (mV) Site1 Site2 Delta-0 (ms) Dist (cm) Erickson (m/s) Left Median Motor (Abd Poll Brev) Wrist 4.8 3.0 Elbow Wrist 6.5 29.0 45 Elbow 11.3 2.2 Right Median Motor (Abd Poll Brev) Wrist 5.9 0.8 Elbow Wrist 5.2 29.0 56 Elbow 11.1 1.0 Left Ulnar Motor (Abd Dig Minimi) Wrist 2.7 5.3 A Elbow Wrist 6.1 30.0 49 A Elbow 8.8 4.3 B Elbow Wrist 3.6 20.0 56 B Elbow 6.3 4.2 Right Ulnar Motor (Abd Dig Minimi) Wrist 2.5 5.1 A Elbow Wrist 5.9 34.0 58 A Elbow 8.4 4.0 F Wave Studies NR F-Lat (ms) L-R F-Lat (ms) Left Median (Mrkrs) (Abd Poll Brev) 32.44 0.68 Right Median (Mrkrs) (Abd Poll Brev) 31.75 0.68 Left Ulnar (Mrkrs) (Abd Dig Min) 31.64 0.21 Right Ulnar (Mrkrs) (Abd Dig Min) 31.43 0.21 EMG Side Muscle Nerve Root Ins Act Fibs Amp Dur Recrt Comment Right 1stDorInt Ulnar C8-T1 Nml Nml Nml Nml Nml Right Ext Indicis Radial (Post Int) C7-8 Nml Nml Nml Nml Nml Right Ext Digitorum Radial (Post Int) C7-8 Nml Nml Nml Nml Nml Right BrachioRad Radial C5-6 Nml Nml Nml Nml Nml Right PronatorTeres Median C6-7 Nml Nml Nml Nml Nml Right Abd Poll Brev Median C8-T1 Nml Nml Incr >12ms ++ Right ABD Dig Min Ulnar C8-T1 Nml Nml Nml Nml Nml Left 1stDorInt Ulnar C8-T1 Nml Nml Incr >12ms ++ Left Ext Indicis Radial (Post Int) C7-8 Nml Nml Nml Nml Nml Left Ext Digitorum Radial (Post Int) C7-8 Nml Nml Nml Nml Nml Left BrachioRad Radial C5-6 Nml Nml Nml Nml Nml Left PronatorTeres Median C6-7 Nml Nml Nml Nml Nml Left Abd Poll Brev Median C8-T1 Nml Nml Incr >12ms ++ Left ABD Dig Min Ulnar C8-T1 Nml Nml Incr >12ms ++ MTDD
== END 2023-11-08 13:33 | disposition home or self-care (01) ==
LOC: ANHNEURO 13:33
PROVIDERS: PCP Internal Medicine; Visit Provider Physician Assistant Surgical
DX: G56.03 Carpal tunnel syndrome, bilateral upper limbs (principal); G56.22 Lesion of ulnar nerve, left upper limb
CPT/HCPCS: 95886; 95911

== ENCOUNTER 2023-12-22 09:26 | Outpatient (CLI) | payer MEDICARE, SELFPAY ==
[2023-12-22 10:09] LABS: Anion Gap 8 mmol/L (4-12); Blood Urea Nitrogen 22 mg/dL (9-20); Calcium 9.3 mg/dL (8.4-10.2); Carbon Dioxide 21 mmol/L (22-30); Chloride 105 mmol/L (98-107); Estimated Glomerular Filt Rate > 60; Glucose 156 mg/dL (65-110); Potassium 4.8 mmol/L (3.4-5.0); Sodium 134 mmol/L (137-145)
== END 2023-12-22 09:27 | disposition home or self-care (01) ==
LOC: ANHSURGERY 09:31
PROVIDERS: Anesthesiology; PCP Internal Medicine; Visit Provider Plastic Surgery
DX: Z01.818 Encounter for other preprocedural examination (principal); E11.9 Type 2 diabetes mellitus without complications
CPT/HCPCS: 36415; 80048

== ENCOUNTER 2023-12-28 01:27 | Day surgery (SDC) | payer MEDICARE, SELFPAY ==
[2023-12-20 15:12] VITALS: BMI 30.2
--- NOTE | 2023-12-20 15:31 | PC.NURSE ---
Report to the Outpatient Waiting Room, entrance under the green pavilion located off [facility], at time ___6:15AM____ on date ___12/28/23____. Planned Procedure Time: _8:15AM . Time changes happen often and if your time is changed the preop area will call you the afternoon before. - You and your visitor will be asked to self-screen and do not enter if you have any COVID symptoms. - A mask is optional within the hospital at this time. NO FOOD OR DRINK AFTER MIDNIGHT. Take the following medications with a SIP of water the morning of surgery: ___PAROXETINE DO NOT STOP ANY OF YOUR OTHER PRESCRIPTION MEDICATIONS PRIOR TO SURGERY ?EXCEPT THE FOLLOWING Medications to discontinue per physician ___HOLD ALL VITAMINS/SUPPLEMENTS 3 DAYS PRE-OP PER ANESTHESIA Date to take last dose 12/24/23 Please no make-up, nail beninese, hairspray, perfume, deodorant, or body powder the day of surgery. No jewelry (including any body piercings) or valuables the day of surgery, leave them at home. Please take a shower or bath the night before, or the morning of, surgery with an antibacterial soap. Wear comfortable, loose fitting clothing. - Jewelry must be removed prior to entering the operating room. Rings and piercings that are not removed may be cut off. - The hospital will not accept responsibility for valuables. - Please leave all valuables, including medications, at home the day of surgery. If you are going home after surgery, a licensed escort car driver must drive you home. - NO public transportation without another adult if you receive anesthesia. - We recommend that an adult stay with you for 24 hours following discharge. - We also recommend that you do not drive, make important decision, drink alcoholic beverages, or take any drugs that were not prescribed by your health care provider for at least 24 hours after your discharge time. Follow any additional instructions given to you from your surgeon. If you or anyone in your household have experienced Covid symptoms in the past week, please notify your surgeon or the nurse liaison at the phone number below for possible testing. Telephone instructions given to ____PATIENT and asked if any additional questions and then verbalized understanding. Patient advised to call surgeon office or pre surgery nurse liaison [phone] if any additional questions.
[2023-12-28 06:11] LABS: Glucose Point of Care 116 mg/dl (65-105)
[2023-12-28 06:39] VITALS: BMI 29.9
[2023-12-28 06:41] VITALS: BP 105/62; PULSE 71; RESP 16; TEMP 36.6; O2SAT 100
--- NOTE | 2023-12-28 06:41 | WPDANESEPPF ---
Anes - Initial Pre Proc Eval Procedure: Operation Date: 12/28/23 07:30 Proposed Procedures p Endoscopic Right Carpal Tunnel Release, Possible Open, Right Cubital Tunnel Release - Frandy Rios MD Date/Time: 12/28/23 06:41 Surgeon: Frandy Rios MD Pre Op Diagnosis: right carpal tunnel syndrome, ulnar nerve synd Patient Data Age: 68 Gender: M Height: 1.75 m Weight: 92.07 kg Allergies Allergy/AdvReac Type Severity Reaction Status Date / Time No Known Allergies Allergy Verified 12/28/23 06:12 Home Medications Medication Instructions Recorded Confirmed Type blood sugar diagnostic (OneTouch #100 ea 08/27/22 10/13/23 Rx Ultra Test strips) mecobalamin (vitamin B12) 1,000 1,000 mcg PO DAILY #90 tabs 09/24/22 12/20/23 Rx mcg chewable tablet lisinopril 20 mg tablet 20 mg PO DAILY #90 tabs 04/17/23 12/20/23 Rx empagliflozin 25 mg tablet 25 mg PO QAM 90 days #90 tabs 06/03/23 12/20/23 Rx (Jardiance) tramadol 50 mg tablet 50 mg PO Q6H PRN pain #12 tabs 08/26/23 12/20/23 Rx glimepiride 4 mg tablet See Rx Instructions .Route 09/13/23 12/20/23 Rx .COMPLEX #90 tabs tirzepatide 7.5 mg/0.5 mL 7.5 mg (0.5 mL) subcut WEEKLY #6 mL 11/25/23 12/20/23 Rx subcutaneous pen injector (Mounjaro) metformin 500 mg tablet See Rx Instructions .Route .COMPLEX 12/20/23 12/20/23 History paroxetine HCl 20 mg tablet 20 mg PO QAM 12/20/23 12/20/23 History atorvastatin 20 mg tablet See Rx Instructions .Route 12/24/23 Rx .COMPLEX #90 tabs sildenafil 100 mg tablet 100 mg PO DAILY PRN sexual 12/26/23 Rx activity #8 tabs Laboratory Tests 12/28/23 06:03 POC Capillary Glucose 116 H mg/dl (65-105) Patient hx anesthesia problems: none Family hx anesthesia problems: none Results Review: All pre-operative results and documents have been reviewed as part of the pre-operative evaluation. [facility] Past Medical History Medical History Diabetes Dupuytren's contracture of both hands Epidermoid cyst of face Essential (primary) hypertension Fatigue History of colon polyps Hyperlipidemia Joint contracture Numbness in both hands Other fatigue Prostate cancer screening Psoriasis, unspecified Pure hypercholesterolemia Sore throat Type 2 diabetes mellitus with other specified complication Type 2 diabetes mellitus without complications Surgical History Surgical History History of hand surgery History of left knee surgery meniscus repair Hx of repair of rotator cuff right shoulder Family History Family History Mother Hypertension Father Family history of genitourinary disease Family history of Alzheimer's disease Sibling Family history of lung disease Social History Social History Smoking packs per day: 1 Smoking cigarettes per day: 20.0 Years smoked: 40 Smoking pack-years: 40.00 Smoking status: Former smoker Tobacco type: cigarettes Second hand tobacco smoke exposure: No Smoking end date: 01/22/17 Alcohol intake: current Drinks per week: 3 Alcohol use details: 2-3 x per week Substance use: never Substance use type: does not use Lack of Transportation: No Lack of Food: Never True Current Housing: I Have Housing Concerned About Future Housing: No Difficulty Paying Gas/Electric Bills: No Difficulty Paying for Meds: No Currently Unemployed: No Education: High School Diploma/GED Difficulty w/ Childcare or Family Care: No Living arrangements: with family Additional living arrangements comments: Spiritual care concerns: No Anes - Eval Final PreProcedure Day of Procedure 12/28/23 06:41 Patient weight: obese Heart: regular rate and rhythm Lungs: clear to auscultation Airway: Mallampati scale class
--- NOTE | 2023-12-28 07:02 | PM.HPGS ---
History of Present Illness History of Present Illness Chief complaint: right carpal tunnel syndrome, ulnar nerve synd Narrative: Patient seen and examined in pre-operative holding area. No interval change in medical history or symptoms. Patient recalls previous discussion of benefits and alternatives to procedure. Continues to desire to proceed with right endoscopic possible open carpal tunnel release and right cubital tunnel release . Reviewed procedure, post-op expectations and risks including but not limited to bleeding, infection, injury to tendon/nerve/vessel, decreased hand function, stiffness, RSD, no change or worsening of symptoms. I discussed the possible use of assistants and their participation in the case. Patient stated understanding and signed the consent form wishing to proceed. Review of Systems Review of Systems: All systems reviewed & are unremarkable except as noted in HPI and below PMFSH Past Medical History Medical History Diabetes Dupuytren's contracture of both hands Epidermoid cyst of face Essential (primary) hypertension Fatigue History of colon polyps Hyperlipidemia Joint contracture Numbness in both hands Other fatigue Prostate cancer screening Psoriasis, unspecified Pure hypercholesterolemia Sore throat Type 2 diabetes mellitus with other specified complication Type 2 diabetes mellitus without complications Surgical History Surgical History History of hand surgery History of left knee surgery meniscus repair Hx of repair of rotator cuff right shoulder Family History Family History Mother Hypertension Father Family history of genitourinary disease Family history of Alzheimer's disease Sibling Family history of lung disease Social History Social History Smoking packs per day: 1 Smoking cigarettes per day: 20.0 Years smoked: 40 Smoking pack-years: 40.00 Smoking status: Former smoker Tobacco type: cigarettes Second hand tobacco smoke exposure: No Smoking end date: 01/22/17 Alcohol intake: current Drinks per week: 3 Alcohol use details: 2-3 x per week Substance use: never Substance use type: does not use Lack of Transportation: No Lack of Food: Never True Current Housing: I Have Housing Concerned About Future Housing: No Difficulty Paying Gas/Electric Bills: No Difficulty Paying for Meds: No Currently Unemployed: No Education: High School Diploma/GED Difficulty w/ Childcare or Family Care: No Living arrangements: with family Additional living arrangements comments: Spiritual care concerns: No Meds Home Medications and Allergies Home Medications Medication Instructions Recorded Confirmed Type blood sugar diagnostic (OneTouch #100 ea 08/27/22 10/13/23 Rx Ultra Test strips) mecobalamin (vitamin B12) 1,000 1,000 mcg PO DAILY #90 tabs 09/24/22 12/28/23 Rx mcg chewable tablet lisinopril 20 mg tablet 20 mg PO DAILY #90 tabs 04/17/23 12/20/23 Rx empagliflozin 25 mg tablet 25 mg PO QAM 90 days #90 tabs 06/03/23 12/20/23 Rx (Jardiance) tramadol 50 mg tablet 50 mg PO Q6H PRN pain #12 tabs 08/26/23 12/20/23 Rx glimepiride 4 mg tablet See Rx Instructions .Route 09/13/23 12/20/23 Rx .COMPLEX #90 tabs tirzepatide 7.5 mg/0.5 mL 7.5 mg (0.5 mL) subcut WEEKLY #6 mL 11/25/23 12/20/23 Rx subcutaneous pen injector (Mounjaro) metformin 500 mg tablet See Rx Instructions .Route .COMPLEX 12/20/23 12/20/23 History paroxetine HCl 20 mg tablet 20 mg PO QAM 12/20/23 12/20/23 History atorvastatin 20 mg tablet See Rx Instructions .Route 12/24/23 Rx .COMPLEX #90 tabs sildenafil 100 mg tablet 100 mg PO DAILY PRN sexual 12/26/23 Rx activity #8 tabs Allergies Allergy/AdvReac Type Severity Reaction Stat
--- NOTE | 2023-12-28 07:03 | W.PM.PROC2 ---
Procedure Note - Detailed Date of Procedure 12/28/23 Pre-op Diagnosis right carpal tunnel syndrome, right cubital tunnel Post-op Diagnosis Same Procedure Performed right ectr and CuTR Surgeon Fradny Rios MD [employer] chaim abreu pa-c Anesthesia MAC Description of Procedure INFORMED CONSENT: The patient was seen and examined and marked in the pre-op area.? The patient signed the consent form. PROCEDURE IN DETAIL:The patient taken back to OR on the stretcher in supine position. Time out performed with anesthesia, surgeon and staff agreeing on patient's name site and surgery to be performed SCDs were placed on the lower extremities and inflated. A tourniquet was placed on {right} upper extremity and antibiotics given IV After anesthesia administered sedation I injected {10}cc 1%lido with epi and 0.5% marcaine plain at the operative sites The?{right upper extremity}?was prepped and draped in sterile fashion the??{right upper extremity} was? exsanguinated with Esmarch bandage and tourniquet inflated to 250mmHg I made a transverse incision in the {right} volar distal wrist crease through skin and dermis with 15 blade scalpel.? Littler scissors spread down to antebrachial fascia. A small incision was made in antebrachial fascia allowing access to Carpal tunnel. I proceeded with sequential dilation staying in line with the ring finger and hugging the hook of the hamate.? I then used the synovial elevator to free any adhesions from the underside of the transverse carpal ligament. Next I was able to insert the Microaire endoscopic carpal tunnel device with direct visualization of the transverse fibers on the monitor and proceeded with complete segmental retrograde release of the ligament in its entirety.? I irrigated with normal saline and closed with 4-0 monocryl for dermis and subcuticular closure. I next proceeded with making a longitudinal incision between two heads for flexor carpi ulnaris at end of {right} cubital tunnel with 15 blade scalpel.? Littler scissors were used to spread down to FCU fascia.? An incision was made in FCU fascia and ulnar nerve identified exiting cubital tunnel.? I proceeded with complete retrograde release of the cubital tunnel including 7cm proximal for the intermuscular septum.? The nerve appeared healthy with visible vaso nervorum.? There was no subluxation on full elbow range of motion. ? I irrigated with normal saline and closure with 4-0 monocryl for dermis and subcuticular. The incisions were covered with Dermabond then 4x4s, marcellus, and a posterior elbow and volar wrist splint for patient safety, security and comfort and secured with dexter bandages after the tourniquet was let down noting the hand was warm and well perfused.? Patient awaken from anesthesia and transferred to recovery in stable condition Complications - none EBL- 1cc Disposition - home in stable conditions chaim abreu pa-c was essential for positioniing, retraction, closure and dressing placement [facility] Billing Surgery - Charge Forward: Surgery Billing ([id number] and [id number], for chaim)
[2023-12-28] MEDS: LIDO 1%/EPINEPHRINE 1:100,000 50 ML VIAL 15 ML INFILTRATE (07:29)
[2023-12-28] MEDS: ceFAZolin 2 GM/D5W 50 ML 2 GM/50 ML BAG IVPB (07:33)
[2023-12-28] MEDS: LACTATED RINGERS 1,000 ML 30 ML IV CONT (07:37)
[2023-12-28 08:06] VITALS: BP 110/65; PULSE 72; RESP 12; O2SAT 96
[2023-12-28 08:11] LABS: Glucose Point of Care 111 mg/dl (65-105)
[2023-12-28 08:30] VITALS: BP 117/67; PULSE 72; RESP 20
[2023-12-28 09:00] VITALS: BP 120/60; PULSE 70; RESP 20
== END 2023-12-28 09:08 | disposition home or self-care (01) ==
PROVIDERS: PCP Internal Medicine; Visit Provider Plastic Surgery
PROC: 01N54ZZ Release Median Nerve, Percutaneous Endoscopic Approach (ICD-10-PCS; CPT 29848; principal; 2023-12-28 07:30)
DX: G56.01 Carpal tunnel syndrome, right upper limb (principal); G56.21 Lesion of ulnar nerve, right upper limb; E11.9 Type 2 diabetes mellitus without complications; I10 Essential (primary) hypertension; E78.00 Pure hypercholesterolemia, unspecified; Z87.891 Personal history of nicotine dependence; E66.9 Obesity, unspecified; Z68.30 Body mass index [BMI] 30.0-30.9, adult; Z79.84 Long term (current) use of oral hypoglycemic drugs; Z79.85 Long-term (current) use of injectable non-insulin antidiabetic drugs
CPT/HCPCS: 29848; 64718; 36415; 80048; 82948; J0690; J2405; J3010; J7120

== ENCOUNTER 2024-04-10 12:31 | Outpatient (CLI) | payer MEDICARE, SELFPAY ==
--- NOTE | ~2024-04-10 | XR_ITS ---
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 Weight bearing anteroposterior and Manuel, sunrise, and flexed lateral views of the right knee were obtained. 2. Weight bearing anteroposterior and Manuel, sunrise, and flexed lateral views of the left knee w ere obtained. COMPARISON: None. FINDINGS: Right knee: Alignment is normal. No fracture. There is mild joint space narrowing in the lateral compartment of t he knee on the Manuel projection with the knee in the flexed position there are small marginal ost eophytes at the patellofemoral compartment. Joint space is normal in the medial compartment likely sm all marginal osteophytes. No right knee joint effusion. There are atherosclerotic calcific lesions at the femoral and popliteal arteries and the arteries in the proximal right calf. Soft tissues are oth erwise unremarkable. Left knee: Alignment is normal. No fracture. Additional osteoarthritis at the left knee with severe joint space narrowing and moderate size marginal osteophytes in the lateral compartment, mild joint space narrow ing and additional moderate size marginal osteophytes at the patellofemoral compartment and small mar ginal osteophytes without significant joint space narrowing in the medial compartment. No joint effus ion. Additional atherosclerotic calcifications at the posterior right thigh and calf. Soft tissues ar e unremarkable. IMPRESSION: 1. Tricompartmental osteoarthritis of both knees, severe at the lateral compartment of the left knee and mild in the remaining compartments of both knees. Reviewed, dictated and finalized at location B. IMPRESSION: 1. Tricompartmental osteoarthritis of both knees, severe at the lateral compart ment of the left knee and mild in the remaining compartments of both knees.
== END 2024-04-10 12:32 | disposition home or self-care (01) ==
LOC: ANHIMG 12:34
PROVIDERS: PCP Internal Medicine; Visit Provider Orthopaedic Surgery
DX: M17.0 Bilateral primary osteoarthritis of knee (principal)
CPT/HCPCS: 73564

== ENCOUNTER 2024-05-09 10:25 | Outpatient (CLI) | payer MEDICARE, SELFPAY ==
[2024-05-09 12:17] LABS: Anion Gap 9 mmol/L (4-12); Blood Urea Nitrogen 15 mg/dL (9-20); Calcium 9.6 mg/dL (8.4-10.2); Carbon Dioxide 26 mmol/L (22-30); Chloride 99 mmol/L (98-107); Estimated Glomerular Filt Rate > 60; Glucose 256 mg/dL (65-110); Potassium 4.4 mmol/L (3.4-5.0); Sodium 134 mmol/L (137-145)
== END 2024-05-09 10:26 | disposition home or self-care (01) ==
LOC: ANHSURGERY 10:28
PROVIDERS: Anesthesiology; PCP Internal Medicine; Visit Provider Plastic Surgery
DX: E11.9 Type 2 diabetes mellitus without complications (principal); Z01.818 Encounter for other preprocedural examination
CPT/HCPCS: 36415; 80048

== ENCOUNTER 2024-05-16 05:23 | Day surgery (SDC) | payer MEDICARE, SELFPAY ==
[2024-05-08 12:40] VITALS: BMI 30.2
--- NOTE | 2024-05-08 13:02 | PC.NURSE ---
Report to the Outpatient Waiting Room, entrance under the green pavilion located off [facility], at time __6:00AM on date ___05/16/24____. Planned Procedure Time: ___7:30AM .? Time changes happen often and if your time is changed the preop area will call you the afternoon before. - You and your visitor will be asked to self-screen and do not enter if you have any COVID symptoms. Please call surgeon if you need to reschedule. - A mask is optional within the hospital at this time. Patients may have clear liquids (water, carbonated beverages, clear teas, apple juice) until 3 hours prior to surgery with a maximum of 20 ounces. - No food from midnight until time of surgery and no smoking. Take only the following medications with a SIP of water on the morning of surgery: PAROXETINE DO NOT STOP ANY OF YOUR OTHER PRESCRIPTION MEDICATIONS PRIOR TO SURGERY EXCEPT THE FOLLOWING Medications to discontinue per physician HOLD ALL VITAMINS/SUPPLEMENTS 3 DAYS PRE-OP PER ANESTHESIA____ Date to take last dose 05/12/24 Please no make-up, nail citizen of [place], hairspray, perfume, deodorant, or body powder the day of surgery.? No jewelry (including any body piercings) or valuables the day of surgery, leave them at home.? Please take a shower or bath the night before, or the morning of, surgery with an antibacterial soap.? Wear comfortable, loose fitting clothing.? - Jewelry must be removed prior to entering the operating room.? Rings and piercings that are not removed may be cut off. - The hospital will not accept responsibility for valuables.? - Please leave all valuables, including medications, at home the day of surgery. If you are going home after surgery, a licensed oil truck driver must drive you home.? - NO public transportation without another adult if you receive anesthesia. - We recommend that an adult stay with you for 24 hours following discharge. - We also recommend that you do not drive, make important decision, drink alcoholic beverages, or take any drugs that were not prescribed by your health care provider for at least 24 hours after your discharge time. Follow any additional instructions given to you from your surgeon. Telephone instructions given to PATIENT and asked if any additional questions and then verbalized understanding. Patient advised to call surgeon office or pre surgery nurse liaison [phone] if any additional questions.
--- NOTE | 2024-05-08 13:07 | PC.NURSE ---
Report to the Outpatient Waiting Room, entrance under the green pavilion located off [facility], at time ___6:00AM____ on date ____05/16/24___. Planned Procedure Time: ___7:30AM .? Time changes happen often and if your time is changed the preop area will call you the afternoon before. - You and your visitor will be asked to self-screen and do not enter if you have any COVID symptoms. Please call surgeon if you need to reschedule. - A mask is optional within the hospital at this time. Patients may have NO FOOD OR DRINK from 11:30PM ON NIGHT BEFORE SURGERY until time of surgery and no smoking. Take only the following medications with a SIP of water on the morning of surgery: PAROXETINE DO NOT STOP ANY OF YOUR OTHER PRESCRIPTION MEDICATIONS PRIOR TO SURGERY EXCEPT THE FOLLOWING Medications to discontinue per physician ____HOLD ALL VITAMINS/SUPPLEMENTS 3 DAYS PRE-OP PER ANESTHESIA Date to take last dose 05/12/24 Please no make-up, nail english, hairspray, perfume, deodorant, or body powder the day of surgery.? No jewelry (including any body piercings) or valuables the day of surgery, leave them at home.? Please take a shower or bath the night before, or the morning of, surgery with an antibacterial soap.? Wear comfortable, loose fitting clothing.? - Jewelry must be removed prior to entering the operating room.? Rings and piercings that are not removed may be cut off. - The hospital will not accept responsibility for valuables.? - Please leave all valuables, including medications, at home the day of surgery. If you are going home after surgery, a licensed milk tanker driver must drive you home.? - NO public transportation without another adult if you receive anesthesia. - We recommend that an adult stay with you for 24 hours following discharge. - We also recommend that you do not drive, make important decision, drink alcoholic beverages, or take any drugs that were not prescribed by your health care provider for at least 24 hours after your discharge time. Follow any additional instructions given to you from your surgeon. Telephone instructions given to ____PATIENT and asked if any additional questions and then verbalized understanding. Patient advised to call surgeon office or pre surgery nurse liaison [phone] if any additional questions.
[2024-05-16 06:30] VITALS: BP 116/77; PULSE 71; RESP 14; TEMP 36.2; O2SAT 100
[2024-05-16] MEDS: LACTATED RINGERS 1,000 ML 30 ML IV CONT (06:30)
[2024-05-16 06:32] LABS: Glucose Point of Care 199 mg/dl (65-105)
--- NOTE | 2024-05-16 06:35 | PM.HPGS ---
History of Present Illness History of Present Illness Chief complaint: left carpal tunnel synd, lesion left ulnar nerve Narrative: Patient seen and examined in pre-operative holding area. No interval change in medical history or symptoms. Patient recalls previous discussion of benefits and alternatives to procedure. Continues to desire to proceed with left endoscopic possible open carpal tunnel release and left cubital tunnel release. Reviewed procedure, post-op expectations and risks including but not limited to bleeding, infection, injury to tendon/nerve/vessel, decreased hand function, stiffness, RSD, no change or worsening of symptoms. I discussed the possible use of assistants and their participation in the case. Patient stated understanding and signed the consent form wishing to proceed. Review of Systems Review of Systems: All systems reviewed & are unremarkable except as noted in HPI and below PMFSH Past Medical History Medical History Diabetes Dupuytren's contracture of both hands Epidermoid cyst of face Essential (primary) hypertension Fatigue History of colon polyps Hyperlipidemia Joint contracture Numbness in both hands Other fatigue Prostate cancer screening Psoriasis, unspecified Pure hypercholesterolemia Sore throat Type 2 diabetes mellitus with other specified complication Type 2 diabetes mellitus without complications Surgical History Surgical History History of hand surgery History of left knee surgery meniscus repair Hx of repair of rotator cuff right shoulder Family History Family History Mother Hypertension Father Family history of genitourinary disease Family history of Alzheimer's disease Sibling Family history of lung disease Social History Social History Smoking packs per day: 1 Smoking cigarettes per day: 20.0 Years smoked: 40 Smoking pack-years: 40.00 Smoking status: Former smoker Tobacco type: cigarettes Second hand tobacco smoke exposure: No Smoking end date: 01/22/19 Alcohol intake: current Drinks per week: 3 Alcohol use details: 2-3 x per week Substance use: never Substance use type: does not use Lack of Transportation: No Lack of Food: Never True Current Housing: I Have Housing Concerned About Future Housing: No Difficulty Paying Gas/Electric Bills: No Difficulty Paying for Meds: No Currently Unemployed: No Education: High School Diploma/GED Difficulty w/ Childcare or Family Care: No Living arrangements: with family Additional living arrangements comments: Spiritual care concerns: No Meds Home Medications and Allergies Home Medications Medication Instructions Recorded Confirmed Type blood sugar diagnostic (OneTouch #100 ea 08/27/22 04/11/24 Rx Ultra Test strips) mecobalamin (vitamin B12) 1,000 1,000 mcg PO DAILY #90 tabs 09/24/22 05/16/24 Rx mcg chewable tablet glimepiride 4 mg tablet See Rx Instructions .Route 09/13/23 05/08/24 Rx .COMPLEX #90 tabs metformin 500 mg tablet See Rx Instructions .Route .COMPLEX 12/20/23 05/08/24 History paroxetine HCl 20 mg tablet 20 mg PO QAM 12/20/23 05/08/24 History atorvastatin 20 mg tablet See Rx Instructions .Route 12/24/23 05/08/24 Rx .COMPLEX #90 tabs sildenafil 100 mg tablet 100 mg PO DAILY PRN sexual 12/26/23 05/08/24 Rx activity #8 tabs lisinopril 20 mg tablet 20 mg PO DAILY #90 tabs 03/30/24 05/08/24 Rx acetaminophen 500 mg capsule 1,000 mg PO Q6H PRN Pain 05/08/24 05/08/24 History triamcinolone acetonide 0.5 % 1 applic topical DAILY PRN Skin 05/08/24 05/08/24 History topical cream Irritation Allergies Allergy/AdvReac Type Severity Reaction Status Date / Time No Known Allergies Allergy Verified 05/16/24 06:58 Exam Narrative: unchanged Assessment and Plan Assessment and plan (1) Cubital tunnel syndrome, bilateral: Code(s): G56.23 - Lesion of ulnar nerve, bilateral upper limbs Status: Acute Assessment and Plan: cont as above (2) Carpal tunnel syndrome, bilateral: Code(s): G56.03 - Carpal tunnel syndrome, bilateral upper limbs Status: Acute
--- NOTE | 2024-05-16 06:36 | W.PM.PROC2 ---
Procedure Note - Detailed Date of Procedure 05/16/24 Pre-op Diagnosis left carpal and cubital tunnel synd, Post-op Diagnosis Same Procedure Performed left ectr and CuTR Surgeon Frandy Rios MD Power Sewing Machine Operator chaim abreu pa-c Anesthesia MAC Description of Procedure INFORMED CONSENT: The patient was seen and examined and marked in the pre-op area.? The patient signed the consent form. PROCEDURE IN DETAIL:The patient taken back to OR on the stretcher in supine position. Time out performed with anesthesia, surgeon and staff agreeing on patient's name site and surgery to be performed SCDs were placed on the lower extremities and inflated. A tourniquet was placed on {left} upper extremity and antibiotics given IV After anesthesia administered sedation I injected {10}cc 1%lido with epi and 0.5% marcaine plain at the operative sites The?{left upper extremity}?was prepped and draped in sterile fashion the??{left upper extremity} was? exsanguinated with Esmarch bandage and tourniquet inflated to 250mmHg I made a transverse incision in the {left} volar distal wrist crease through skin and dermis with 15 blade scalpel.? Littler scissors spread down to antebrachial fascia. A small incision was made in antebrachial fascia allowing access to Carpal tunnel. I proceeded with sequential dilation staying in line with the ring finger and hugging the hook of the hamate.? I then used the synovial elevator to free any adhesions from the underside of the transverse carpal ligament. Next I was able to insert the Microaire endoscopic carpal tunnel device with direct visualization of the transverse fibers on the monitor and proceeded with complete segmental retrograde release of the ligament in its entirety.? I irrigated with normal saline and closed with 4-0 monocryl for dermis and subcuticular closure. I next proceeded with making a longitudinal incision between two heads for flexor carpi ulnaris at end of {left} cubital tunnel with 15 blade scalpel.? Littler scissors were used to spread down to FCU fascia.? An incision was made in FCU fascia and ulnar nerve identified exiting cubital tunnel.? I proceeded with complete retrograde release of the cubital tunnel including 7cm proximal for the intermuscular septum.? The nerve appeared healthy with visible vaso nervorum.? There was no subluxation on full elbow range of motion. ? I irrigated with normal saline and closure with 4-0 monocryl for dermis and subcuticular. The incisions were covered with Dermabond then 4x4s, marcellus, and a posterior elbow and volar wrist splint for patient safety, security and comfort and secured with dexter bandages after the tourniquet was let down noting the hand was warm and well perfused.? Patient awaken from anesthesia and transferred to recovery in stable condition Complications - none EBL- 1cc Disposition - home in stable conditions Chaim Abreu pa-c was essential for positioning, retraction, closure and dressing placement [facility] Billing Surgery - Charge Forward: Surgery Billing ([id number] same for chaim dahl )
--- NOTE | 2024-05-16 06:50 | P.PNAN_ITS ---
Anes - Initial Pre Proc Eval Procedure: Operation Date: 05/16/24 07:30 Proposed Procedures p Left Endoscopic Carpal Tunnel Release, Possible Open, Left Cubital Tunnel Release - Frandy Rios MD Date/Time: 05/16/24 06:50 Surgeon: Frandy Rios MD Pre Op Diagnosis: left carpal tunnel synd, lesion left ulnar nerve Patient Data Age: 68 Gender: M Height: 1.75 m Weight: 93 kg Allergies Allergy/AdvReac Type Severity Reaction Status Date / Time No Known Allergies Allergy Verified 05/08/24 12:36 Home Medications Medication Instructions Recorded Confirmed Type blood sugar diagnostic (OneTouch #100 ea 08/27/22 04/11/24 Rx Ultra Test strips) mecobalamin (vitamin B12) 1,000 1,000 mcg PO DAILY #90 tabs 09/24/22 05/08/24 Rx mcg chewable tablet glimepiride 4 mg tablet See Rx Instructions .Route 09/13/23 05/08/24 Rx .COMPLEX #90 tabs metformin 500 mg tablet See Rx Instructions .Route .COMPLEX 12/20/23 05/08/24 History paroxetine HCl 20 mg tablet 20 mg PO QAM 12/20/23 05/08/24 History atorvastatin 20 mg tablet See Rx Instructions .Route 12/24/23 05/08/24 Rx .COMPLEX #90 tabs sildenafil 100 mg tablet 100 mg PO DAILY PRN sexual 12/26/23 05/08/24 Rx activity #8 tabs lisinopril 20 mg tablet 20 mg PO DAILY #90 tabs 03/30/24 05/08/24 Rx acetaminophen 500 mg capsule 1,000 mg PO Q6H PRN Pain 05/08/24 05/08/24 History triamcinolone acetonide 0.5 % 1 applic topical DAILY PRN Skin 05/08/24 05/08/24 History topical cream Irritation Laboratory Tests 05/16/24 06:20 POC Capillary Glucose 199 H mg/dl (65-105) Patient hx anesthesia problems: none Family hx anesthesia problems: none Results Review: All pre-operative results and documents have been reviewed as part of the pre- operative evaluation. [facility], LAT[facility] Past Medical History Medical History Diabetes Dupuytren's contracture of both hands Epidermoid cyst of face Essential (primary) hypertension Fatigue History of colon polyps Hyperlipidemia Joint contracture Numbness in both hands Other fatigue Prostate cancer screening Psoriasis, unspecified Pure hypercholesterolemia Sore throat Type 2 diabetes mellitus with other specified complication Type 2 diabetes mellitus without complications Surgical History Surgical History History of hand surgery History of left knee surgery meniscus repair Hx of repair of rotator cuff right shoulder Family History Family History Mother Hypertension Father Family history of genitourinary disease Family history of Alzheimer's disease Sibling Family history of lung disease Social History Social History Smoking packs per day: 1 Smoking cigarettes per day: 20.0 Years smoked: 40 Smoking pack-years: 40.00 Smoking status: Former smoker Tobacco type: cigarettes Second hand tobacco smoke exposure: No Smoking end date: 01/22/19 Alcohol intake: current Drinks per week: 3 Alcohol use details: 2-3 x per week Substance use: never Substance use type: does not use Lack of Transportation: No Lack of Food: Never True Current Housing: I Have Housing Concerned About Future Housing: No Difficulty Paying Gas/Electric Bills: No Difficulty Paying for Meds: No Currently Unemployed: No Education: High School Diploma/GED Difficulty w/ Childcare or Family Care: No Living arrangements: with family Additional living arrangements comments: Spiritual care concerns: No Anes - Eval Final PreProcedure Day of Procedure 05/16/24 06:50 Patient weight: overweight Heart: regular rate and rhythm Lungs: clear to auscultation Airway: Mallampati scale class II Neurological: alert and oriented Last oral intake: >/= 8 hours ASA classification: III Emergent: no Anesthetic plan: proceed Anesthesia type and monitoring: general GIVS and standard monitoring Results Review: All pre-operative results and documents have been reviewed as part of the pre- operative evaluation. Hyperlipidemia, DM (fsbs 199), HTN, ex smoker, quit 2018. Informed Consent: The patient's anesthetic plan and its attendant risks and benefits were discussed with the patient/family/POA. Questions were solicited and answers provided to the satisfaction of the patient/family/POA.
[2024-05-16 07:02] VITALS: BMI 30.7
[2024-05-16] MEDS: LIDO 1%/EPINEPHRINE 1:100,000 50 ML VIAL 10 ML INFILTRATE (07:17)
[2024-05-16] MEDS: ceFAZolin 2 GM/D5W 50 ML 2 GM/50 ML BAG IVPB (07:30)
[2024-05-16 08:05] VITALS: BP 111/57; PULSE 68; RESP 12; O2SAT 98
[2024-05-16 08:10] LABS: Glucose Point of Care 199 mg/dl (65-105)
[2024-05-16 08:25] VITALS: BP 112/61; PULSE 66; RESP 12; O2SAT 97
[2024-05-16 08:50] VITALS: BP 125/60; PULSE 53; RESP 12
== END 2024-05-16 09:05 | disposition home or self-care (01) ==
PROVIDERS: PCP Internal Medicine; Visit Provider Plastic Surgery
PROC: 01N54ZZ Release Median Nerve, Percutaneous Endoscopic Approach (ICD-10-PCS; CPT 29848; principal; 2024-05-16 07:30)
DX: G56.02 Carpal tunnel syndrome, left upper limb (principal); G56.22 Lesion of ulnar nerve, left upper limb; I10 Essential (primary) hypertension; E78.00 Pure hypercholesterolemia, unspecified; E11.69 Type 2 diabetes mellitus with other specified complication; M72.0 Palmar fascial fibromatosis [Dupuytren]; Z79.84 Long term (current) use of oral hypoglycemic drugs; Z98.890 Other specified postprocedural states; Z87.891 Personal history of nicotine dependence; Z86.0100 Personal history of colon polyps, unspecified
CPT/HCPCS: 64718; 29848; 36415; 80048; 82948; J0690; J2003; J2004; J2250; J2704; J3010; J7120

== ENCOUNTER 2024-06-26 14:52 | Outpatient (CLI) | payer MEDICARE, SELFPAY ==
--- NOTE | 2024-06-26 14:57 | ECG_ITS ---
Test Date: 2024-06-26 15:06:45 Measurements Intervals Garner Rate: 70 P: 43 ND: 191 QRS: -35 QRSD: 110 T: 16 QT: 396 QTc: 429 Interpretive Statements SINUS RHYTHM WITH OCCASIONAL SUPRAVENTRICULAR PREMATURE COMPLEXES LEFT AXIS DEVIATION [QRS AXIS < -30] MINIMAL VOLTAGE CRITERIA FOR LVH, CONSIDER NORMAL VARIANT [MEETS CRITERIA IN ONE OF: R(aVL), S(V1), R(V5), R(V5/V6)+S(V1)] No previous ECG available for comparison Electronically Signed On 06-26-2024 15:37:48 TURN LASTER by Modesta Velazquez M.D.
== END 2024-06-26 14:53 | disposition home or self-care (01) ==
PROVIDERS: PCP Internal Medicine; Visit Provider Internal Medicine
DX: E11.9 Type 2 diabetes mellitus without complications (principal); Z01.810 Encounter for preprocedural cardiovascular examination
CPT/HCPCS: 93005

== ENCOUNTER 2024-08-30 08:51 | Outpatient (CLI) | payer MEDICARE, SELFPAY ==
--- NOTE | ~2024-08-30 | CT_ITS ---
CT Scan of the Chest without Contrast: Clinical Indication: Lung cancer screening, nicotine dependence Technique: Contiguous sections were acquired throughout the chest without intravenous contrast. Dose reduction technique was used on this scan by utilizing automated exposure control and iterative recon struction technique. The dose-length product (DLP) was 149.53 mGy-cm. Findings: There is no evidence of any significant mediastinal, hilar or axillary lymphadenopathy. Coronary yohan ry calcifications are present. There is no evidence of pleural or pericardial effusion. The lungs are clear. No pulmonary nodules or infiltrates are noted. Images through the upper abdomen reveal no abnormalities. Impression: Lung RADS 1: Negative. 12 month follow-up screening CT advised. Reviewed, dictated and finalized at location . [employer] TECHNICIAN Impression: Lung RADS 1: Negative. 12 month follow-up screening CT advised.
== END 2024-08-30 08:52 | disposition home or self-care (01) ==
LOC: MICIMG 08:51
PROVIDERS: PCP Physician Assistant; Visit Provider Physician Assistant
DX: Z12.2 Encounter for screening for malignant neoplasm of respiratory organs (principal); Z87.891 Personal history of nicotine dependence
CPT/HCPCS: 71271

== ENCOUNTER 2024-09-28 08:48 | Outpatient (CLI) | payer MEDICARE, SELFPAY ==
--- NOTE | ~2024-09-28 | MR_ITS ---
EXAMINATION: MR knee RT wo con DATE: 09/28/2024 09:27 INDICATION: Right knee pain TECHNIQUE: Magnetic resonance imaging (MRI) of the right knee was performed without intravenous contr ast. Sequences included coronal PD-weighted FSE, coronal PD-weighted FS FSE, sagittal T2-weighted FS E, sagittal PD-weighted FS FSE and axial PD weighted fat saturated FSE. COMPARISON: Right knee radiographs dated 04/10/2024 FINDINGS: Medial compartment: Mild increased intrasubstance signal in the body and posterior horn of the medial meniscus which does not obviously contact the articular surface to suggest meniscal tear and likely related to mucoid de generation. There is deep chondral fissuring without degenerative subchondral changes at the central to lateral aspect of the medial tibial plateau underlying the anterior margin of the posterior horn o f the medial meniscus. Articular cartilage is otherwise normal. Lateral compartment: Complex of the anterior horn and body the lateral meniscus with additional complex tear at the medial side of the posterior horn. There is deep chondral ulceration with underlying subarticular edema-lik e signal change at the central aspect of the lateral tibial plateau. Additional less severe partial t hickness chondral ulceration with scattered chondral surface irregularity more peripherally at the la teral tibial plateau as well as along the central to posterior weightbearing lateral femoral condyle. Patellofemoral compartment: Deep chondral fissuring at the medial patellar facet and at the apical ridge the latter superimposed over partial-thickness chondral ulceration and with underlying mild subarticular edema-like signal ch cb. There is less severe partial thickness chondral fissuring without degenerative subchondral rojas ges at the lateral patellar facet. Trochlear cartilage is normal. Ligaments and tendons: Thickening and increased signal at the posterior cruciate ligament consistent with at least partial t ear. There is thickening and increased signal of the anterior cruciate ligament but with still normal ly oriented linear ligament fibers consistent with mucoid degeneration without definitive tear. There is mild thickening and increased signal at the proximal aspect of the fibular collateral ligament an d medial collateral ligament without surrounding edema consistent with mild scarring related to chron ic sprains. The extensor mechanism is normal. The visualized medial and lateral hamstring tendons as well as the iliotibial band are normal. Fluid: Small knee joint effusion with mild to moderate synovitis at the suprapatellar pouch. No loose osteoc hondral bodies identified. Small Townsend's cyst. Osseous/other: Aside from the previous noted subarticular edema-like signal changes there is normal marrow signal. N o fracture or pathologic marrow replacing process. IMPRESSION: 1. Complex lateral meniscal tear. 2. 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 3. At least partial tear of the posterior cruciate ligament and mucoid degeneration without definitiv e tear of the anterior cruciate ligament. Correlate with physical exam to assess for degree of residu al functional integrity of the ligaments. 4. Small right knee joint effusion and small Townsend's cyst. Reviewed, dictated and finalized at location B. MECHANIC IMPRESSION: 1. Complex lateral meniscal tear. 2. Mild tricompartmental osteoarthritis at the right knee with moderate and hig h-grade chondromalacia in the lateral compartment and at the patella and modera te grade chondromalacia at the medial tibial plateau. 3. At least partial tear of the posterior cruciate ligament and mucoid degenera tion without definitive tear of the anterior cruciate ligament. Correlate with physical exam to assess for degree of residual functional integrity of the liga ments. 4. Small right knee joint effusion and small Townsend's cyst.
== END 2024-09-28 08:49 | disposition home or self-care (01) ==
LOC: MICIMG 08:48
PROVIDERS: PCP Nurse Practitioner Family; Visit Provider Nurse Practitioner Family
DX: M17.0 Bilateral primary osteoarthritis of knee (principal); S83.521D Sprain of posterior cruciate ligament of right knee, subsequent encounter; S83.271D Complex tear of lateral meniscus, current injury, right knee, subsequent encounter; X58.XXXD Exposure to other specified factors, subsequent encounter; M25.461 Effusion, right knee
CPT/HCPCS: 73721

== ENCOUNTER 2024-10-17 09:30 | Outpatient (RCR) | payer MEDICARE, SELFPAY ==
[2024-08-29 10:50] VITALS: BMI 31.2
[2024-08-29 10:53] VITALS: BMI 31.2
[2024-10-17 09:30] VITALS: BMI 31.1
[2024-10-17 09:33] VITALS: BMI 31.1
== END 2024-11-19 09:21 | disposition home or self-care (01) ==
LOC: ANHDMC 09:30
PROVIDERS: Visit Provider Internal Medicine
DX: E11.69 Type 2 diabetes mellitus with other specified complication (principal); Z71.89 Other specified counseling
CPT/HCPCS: 97802; 97803; G0108; G0109

== ENCOUNTER 2024-12-07 14:17 | Outpatient (CLI) | payer MEDICARE, SELFPAY ==
--- NOTE | ~2024-12-07 | CT_ITS ---
Clinical indication:Severe osteoarthritis. Left total knee replacement is planned. COMPARISON:Reference is made to multiple prior radiographs of the left knee performed most recently o n 04/10/2024 and dating back to 04/03/2021 TECHNIQUE: Multiple contiguous axial images of the left knee were performed without the administratio n of intravenous contrast. Conformis protocol was also performed FINDINGS: No acute or subacute fractures are appreciated. Severe degenerative disease is redemonstrated, with osteophyte formation, both medial and lateral tib iofemoral joint space narrowing and severe patellofemoral joint space narrowing is also noted. Moderate suprapatellar joint effusion. The infrapatellar joint space is clear. Densely calcified atherosclerotic disease is noted. Diffuse bony demineralization is present. IMPRESSION: Severe degenerative disease with a suprapatellar joint effusion. Reviewed, dictated and finalized at location A.
--- OUTSIDE RECORDS SUMMARY | 2024-12-07 14:21 | XMS_ITS | Clinical Summary ---
Author Organization [facility] Address [address] [place] [id number] Care Team Providers Care [facility] Name Role Phone Unavailable Primary Care Provider Unavailabl e Social History Tobacco Use Types Packs/Day Years Used Date Smoking Tobacco: Never Assessed Sex and Gender Information Value Date Recorded Sex Assigned at Not on file Legal Sex Male 8:25 PM CDT Gender Identity Not on file Sexual Orientation Not on file Plan of Treatment Health Maintenance Due Date Last Done Comments Colorectal Cancer Screening Colonoscopy (10 Years) 1955 Hepatitis C 11/23/1971 DTaP, Tdap and Td Vaccines ( 1 - Tdap) 1972 Pneumococcal Vaccine: 50+ Ye ars (1 of 1 - PCV) 11/23/2003 Zoster Vaccines (1 of 2) 11/23/2003 COVID-19 Vaccine ( - 2023-2 5 season) 2024 RSV Immunization or 60+ Years (1 - 1-dose 75+ series) 2028 Meningococcal B Vaccine Aged Out No l onger eligible based on patient's age to complete this topic Meningococcal Vaccine Aged Out No vickey ezio eligible based on patient's age to complete this topic RSV Immunizations Under 20 Months Aged Out No longer eligible based on patient's age to complete this topic
--- OUTSIDE RECORDS SUMMARY | 2024-12-07 14:21 | XMS_ITS | Continuity of Care Document ---
Author Organization [facility] Address [address] [place] [address] Phone Care Team Providers Care Framing [facility]anging Name Role Phone José Antonio Douglas DO Unavailable Unavailable Advance Directives Directive Yes / No Effective Date File Name No Information Encounters Encounter Description Practice Location Reason(s) For Visit Diagnoses Date Provider Providers Copied on Encounter [facility], [address], [place], [place], [id number], tel:[phone] [facility] No Information Misael Sánchez. [address] [place], [address], . tel: [phone] Family History Family Member Type Diagnosis Age At Onset No Information Payers Payer name Insurance type Covered republican ID Authoriza tion(s) No Information Social History Type Description Quantity Date Captured Comments Sex Male Smoking Status No Information Chief Complaint And Reason For Visit No Information Reason For Referral Reason For Referral No Information History Of Present Illness Encounter Date Complaint History Of Prese nt Illness No Information Functional Status Date Functional Assessmen t No Information Instructions Date Instruction Additional Infor mation No Information Assessments Type Assessment Date No Information Patient Care Teams Name Effective Dates (start - stop) Status Members No Information
--- OUTSIDE RECORDS SUMMARY | 2024-12-07 14:21 | XMS_ITS | Data Portability ---
Author Organization COURTNEY NICKArun Butler Address [address] [place] [address] Care Team Providers Care Events Director Name Role Phone ADRIANA CARLTON Primary Care Provider Unavailab le Assessment Encounter Date Assessment Date Assessment LastModified by Organization Details LastModified Time 08/07/2024 08/07/2024 Colonoscopy due February 10, 2030 Due for labs Not available 08/07/2024 10:15:21 Plan of Treatment Reminders Order Date Submit Date Provider Last Modified By Organization Details Last Modified Time Details Appointments ANY 15 2024 09:00A M TIM Fitzgerald Not available Not available Not available Lab PSA, total, serum or plasma 2024 025 [place] [facility], [address], [place], [address], 08/25/2024 07:10:26 HbA1c (hemoglob in A1c), blood 2024 025 [place] [facility], [address], [place], [address], 08/25/2024 07:10:24 microalbu min, urine 2024 025 [place] [facility], [address], [place], [address], 08/25/2024 07:10:19 CBC w/ auto diff 2024 025 [place] [facility], [address], [place], [address], 08/25/2024 07:10:25 hepatic function panel, serum 2024 025 [place] [facility], [address], [place], [address], 08/25/2024 07:10:22 BMP, serum or plasma 2024 025 [place] [facility], [address], [place], [address], 08/25/2024 07:10:23 TSH + free T4, serum 2024 025 [place] [facility], [address], [place], [address], 08/25/2024 07:10:20 lipid panel, serum 2024 025 [place] [facility], [address], [place], [address], 08/25/2024 07:10:21 Referral None recorded. Procedures None recorded. Surgeries None recorded. Imaging LDCT, chest, for lung cancer screening [address] [facility] (Imaging), [facility] [address], [place], [address], 08/30/2024 11:41:45 Medication Orders None recorded. Patient TargetsNo targets recorded. Patient Instructions Encounter Date Encounter Id Patient Instructions Last Modified By Organization Details Last Modified Time 08/07/2024 [id number] A healthy lifestyle: care instructions Not available 08/07/2024 10:32:03 Reason for Referral None Reported. Results Created Date Observation Date Name Description Value Unit Range Abnormal Flag Note LastModifiedBy Organization Detail LastModifiedTime 08/24/19 25 08/25/2024 ALBUM IN, RANDO M URINE albumin, urine <3.0 ug/mL notest ab. Not Available [facility] ([facility]) [address] [facility], [place], [address], 08/25/2024 07:10:19 08/24/19 25 08/25/2024 TSH+F REE T4 TSH 2.580 uIU/m L 0.450- 4.500 Not Available [facility] ([facility]) [address] [place], [address], 08/25/2024 07:10:20 08/24/19 25 08/25/2024 TSH+F REE T4 T4,free(dire ct) 1.07 NG/dL 0.82-1 .77 Not Available [facility] ([facility]) [address] [place], [address], 08/25/2024 07:10:20 08/24/19 25 08/25/2024 LIPID PANEL cholesterol, total 115 mg/dL 100-19 9 Not Available [facility] ([facility]) [address] [place], [address], 08/25/2024 07:10:21 08/24/19 25 08/25/2024 LIPID PANEL triglyceride s 90 mg/dL 0-149 Not Available [facility] ([facility]) [address] [place], [address], 08/25/2024 07:10:21 08/24/19 25 08/25/2024 LIPID PANEL HDL cholesterol 37 mg/dL >39 below low normal Not Available [facility] ([facility]) [address] [place], [address], 08/25/2024 07:10:21 08/24/19 25 08/25/2024 LIPID PANEL VLDL cholesterol padmini 18 mg/dL 5-40 Not Available [facility] ([facility]) [address] [place], [address], 08/25/2024 07:10:21 08/24/19 25 08/25/2024 LIPID PANEL LDL chol calc ([facility]) 60 mg/dL 0-99 Not Available [facility] ([facility]) [address] [place], [address], 08/25/2024 07:10:21 08/24/19 25 08/25/2024 HEPAT IC FUNCT ION PANEL (7) protein, total 6.6 g/dL 6.0-8. 5 Not Available [facility] ([facility]) [address] [place], [address], 08/25/2024 07:10:22 08/24/19 25 08/25/2024 HEPAT IC FUNCT ION PANEL (7) albumin 4.2 g/dL 3.9-4. 9 Not Available [facility] ([facility]) [address] [place], [address], 08/25/2024 07:10:22 08/24/19 25 08/25/2024 HEPAT IC FUNCT ION PANEL (7) bilirubin, total 0.4 mg/dL 0.0-1. 2 Not Available [facility] ([facility]) [address] [facility] [place], [address], 08/25/2024 07:10:22 08/24/19 25 08/25/2024 HEPAT IC FUNCT ION PANEL (7) bilirubin, direct 0.14 mg/dL 0.00-0 .40 Not Available [facility] ([facility]) [address] [facility] [place], [address], 08/25/2024 07:10:22 08/24/19 25 08/25/2024 HEPAT IC FUNCT ION PANEL (7) alkaline phosphatase 71 IU/L 44-121 Not Available [facility] ([facility]) [address] [facility] [place], [address], 08/25/2024 07:10:22 08/24/19 25 08/25/2024 HEPAT IC FUNCT ION PANEL (7) AST (SGOT) 16 IU/L 0-40 Not Available [facility] ([facility]) [address] [facility] [place], [address], 08/25/2024 07:10:22 08/24/19 25 08/25/2024 HEPAT IC FUNCT ION PANEL (7) ALT (SGPT) 17 IU/L 0-44 Not Available [facility] ([facility]) [address] [place], [address], 08/25/2024 07:10:22 08/24/19 25 08/25/2024 BMP7+ EGFR glucose 188 mg/dL 70-99 above high normal Not Available [facility] ([facility]) [address] [place], [address], 08/25/2024 07:10:23 08/24/19 25 08/25/2024 BMP7+ EGFR BUN 18 mg/dL 8-27 Not Available [facility] ([facility]) [address] [place], [address], 08/25/2024 07:10:23 08/24/19 25 08/25/2024 BMP7+ EGFR creatinine 0.84 mg/dL 0.76-1 .27 Not Available [facility] ([facility]) [address] [place], [address], 08/25/2024 07:10:23 08/24/19 25 08/25/2024 BMP7+ EGFR eGFR 94 mL/mi n/1.7 3 >59 Not Available [facility] ([facility]) [address] [place], [address], 08/25/2024 07:10:23 08/24/19 25 08/25/2024 BMP7+ EGFR sodium 138 mmol/ L 134-14 4 Not Available [facility] ([facility]) [address] [place], [address], 08/25/2024 07:10:23 08/24/19 25 08/25/2024 BMP7+ EGFR potassium 4.4 mmol/ L 3.5-5. 2 Not Available [facility] ([facility]) [address] [place], [address], 08/25/2024 07:10:23 08/24/19 25 08/25/2024 BMP7+ EGFR chloride 101 mmol/ L 96-106 Not Available [facility] ([facility]) [address] [facility], [place], [address], 08/25/2024 07:10:23 08/24/19 25 08/25/2024 BMP7+ EGFR carbon dioxide, total 22 mmol/ L 20-29 Not Available [facility] ([facility]) [address] [facility], [place], [address], 08/25/2024 07:10:23 08/24/19 25 08/24/2024 HEMOG LOBIN A1C hemoglobin A1C 8.7 % 4.8-5. 6 above high normal Predi abete s: 5.7 - 6.4 Diabe angela: >6.4 Glyce robe contr ol for adult s with diabe angela: <7.0 Not Available [facility] ([facility]) [address] [facility], [place], [address], 08/25/2024 07:10:24 08/24/19 25 08/24/2024 CBC WITH DIFFE RENTI AL/PL ATELE T WBC 5.3 x10e3 /uL 3.4-10 .8 Not Available [facility] ([facility]) [address] [place], [address], 08/25/2024 07:10:25 08/24/19 25 08/24/2024 CBC WITH DIFFE RENTI AL/PL ATELE T RBC 4.73 x10e6 /uL 4.14-5 .80 Not Available [facility] ([facility]) [address] [facility], [place], [address], 08/25/2024 07:10:25 08/24/19 25 08/24/2024 CBC WITH DIFFE RENTI AL/PL ATELE T hemoglobin 14.5 g/dL 13.0-1 7.7 Not Available [facility] ([facility]) [address] [facility], [place], [address], 08/25/2024 07:10:25 08/24/19 25 08/24/2024 CBC WITH DIFFE RENTI AL/PL ATELE T hematocrit 43.0 % 37.5-5 1.0 Not Available [facility] ([facility]) [address] [facility], [place], [address], 08/25/2024 07:10:25 08/24/19 25 08/24/2024 CBC WITH DIFFE RENTI AL/PL ATELE T MCV 91 fL 79-97 Not Available [facility] ([facility]) [address] [facility], [place], [address], 08/25/2024 07:10:25 08/24/19 25 08/24/2024 CBC WITH DIFFE RENTI AL/PL ATELE T MCH 30.7 pg 26.6-3 3.0 Not Available [facility] ([facility]) [address] [facility], [place], [address], 08/25/2024 07:10:25 08/24/19 25 08/24/2024 CBC WITH DIFFE RENTI AL/PL ATELE T MCHC 33.7 g/dL 31.5-3 5.7 Not Available [facility] ([facility]) [address] [facility], [place], [address], 08/25/2024 07:10:25 08/24/1908/24/2024 CBC WITH DIFFE RENTI AL/PL ATELE T RDW 12.5 % 11.6-1 5.4 Not Available [facility] ([facility]) [address] [facility], [place], [address], 08/25/2024 07:10:25 08/24/19 25 08/24/2024 CBC WITH DIFFE RENTI AL/PL ATELE T platelets 271 x10e3 /uL 150-45 0 Not Available [facility] ([facility]) [address], [place], [address], 08/25/2024 07:10:25 08/24/1908/24/2024 CBC WITH DIFFE RENTI AL/PL ATELE T neutrophils 52 % notest ab. Not Available [facility] ([facility]) [address] [facility], [place], [address], 08/25/2024 07:10:25 08/24/19 25 08/24/2024 CBC WITH DIFFE RENTI AL/PL ATELE T lymphs 29 % notest ab. Not Available [facility] ([facility]) [address], [place], [address], 08/25/2024 07:10:25 08/24/19 25 08/24/2024 CBC WITH DIFFE RENTI AL/PL ATELE T monocytes 9 % notest ab. Not Available [facility] ([facility]) [address] [facility], [place], [address], 08/25/2024 07:10:25 08/24/19 25 08/24/2024 CBC WITH DIFFE RENTI AL/PL ATELE T eos 8 % notest ab. Not Available [facility] ([facility]) [address] [facility], [place], [address], 08/25/2024 07:10:25 08/24/19 25 08/24/2024 CBC WITH DIFFE RENTI AL/PL ATELE T basos 2 % notest ab. Not Available [facility] ([facility]) [address] [facility], [place], [address], 08/25/2024 07:10:25 08/24/19 25 08/24/2024 CBC WITH DIFFE RENTI AL/PL ATELE T neutrophils (absolute) 2.8 x10e3 /uL 1.4-7. 0 Not Available [facility] ([facility]) [address] [facility], [place], [address], 08/25/2024 07:10:25 08/24/19 25 08/24/2024 CBC WITH DIFFE RENTI AL/PL ATELE T lymphs (absolute) 1.5 x10e3 /uL 0.7-3. 1 Not Available [facility] ([facility]) [address] [facility], [place], [address], 08/25/2024 07:10:25 08/24/19 25 08/24/2024 CBC WITH DIFFE RENTI AL/PL ATELE T monocytes(ab solute) 0.5 x10e3 /uL 0.1-0. 9 Not Available [facility] ([facility]) [address], [place], [address], 08/25/2024 07:10:25 08/24/19 25 08/24/2024 CBC WITH DIFFE RENTI AL/PL ATELE T eos (absolute) 0.4 x10e3 /uL 0.0-0. 4 Not Available [facility] ([facility]) [address] [facility], [place], [address], 08/25/2024 07:10:25 08/24/19 25 08/24/2024 CBC WITH DIFFE RENTI AL/PL ATELE T baso (absolute) 0.1 x10e3 /uL 0.0-0. 2 Not Available [facility] ([facility]) [address] [facility], [place], [address], 08/25/2024 07:10:25 08/24/19 25 08/24/2024 CBC WITH DIFFE RENTI AL/PL ATELE T immature granulocytes 0 % notest ab. Not Available [facility] ([facility]) [address] [facility], [place], [address], 08/25/2024 07:10:25 08/24/19 25 08/24/2024 CBC WITH DIFFE RENTI AL/PL ATELE T immature grans (abs) 0.0 x10e3 /uL 0.0-0. 1 Not Available [facility] ([facility]) [address] [facility], [place], [address], 08/25/2024 07:10:25 08/24/19 25 08/25/2024 PROST ATE-S PECIF IC AG prostate specific Ag 0.7 NG/mL 0.0-4. 0 Valerie ECLIA metho dolog y. Accor ding to the Ameri can [employer]rolo g[employer] Assoc iatio n, Serum PSA shoul d decre ase and remai n at undet ectab le level s after radic al prost atect shanice. The AUA defin es bioch emica l recur rence as an initi al PSA value 0.2 ng/mL or great er follo wed by a subse quent confi rmato ry PSA value 0.2 ng/mL or great er. Value s obtai sera with diffe rent assay metho ds or kits canno t be used inter vines eably . Resul ts canno t be inter prete d as absol morongo evide nce of the prese nce or absen ce of adrienne turner se. Not Available [facility] ([facility]) [address], [place], [address], 08/25/2024 07:10:26 08/30/19 25 08/30/2024 LDCT, chest , for lung cance r scree jeanmarie No observ ation record ed. [facility] [address], [place], [address], 09/03/2024 16:39:33 Result Notes None recorded. Problems Name Problem SNOMED Code Status Onset Date Resolution Date Notes Provider Name and Address Organization Details Recorded Time Body mass index 30+ - obesity 480135573 Active 2024 Julita Meneses MA null, [place] - [facility] 10:04:02 Ex-smoker 6278226 Active 2024 TIM Fitzgerald Attn: Corin g,[address] [facility], [place], [address], [place] [facility] 5 10:30:51 Long-term drug therapy Active 2024 TIM Fitzgerald Attn: Corin clark[address] [place], [address], [place] [facility] 5 10:30:52 Osteoarthritis of knee 556546777 Active 2024 TIM Fitzgerald Attn: Corin clark[address] [place], [address], [place] [facility] 5 10:30:54 Generalized anxiety disorder 28551301 Active 2024 TIM Fitzgerald Attn: Corin clark,[address] [place], [address], [place] [facility] 5 10:30:56 Hyperlipidemia 51020171 Active 2024 TIM Fitzgerald Attn: Corin clark,[address] [place], [address], [place] [facility] 5 10:31:01 Benign essential hypertension 1832097 Active 2024 TIM Fitzgerald Attn: Corin clark[address] [place], [address], [place] [facility] 5 10:31:04 Uncontrolled type 2 diabetes mellitus 949613391 Active 2024 TIM Fitzgerald Attn: Corin clark,[address] [place], [address], [place] [facility] 5 10:31:05 Obesity 371558773 Active 2024 TIM Fitzgerald Attn: Corin clark,[address] [place], [address], [place] - [facility] 5 10:31:24 Problem Notes None recorded. Procedures Surgical History None recorded. Imaging Results Imaging Date Name Status LastModified by [facility] Details LastModified Time 08/30/2024 LDCT, chest, for lung cancer screening completed [facility] [address], [place], [address], 09/03/2024 16:39:33 Procedure Notes None recorded. Medical Equipment None Reported. Allergies No known drug allergies Medications Name Sig Start Date Stop Date Status Note LastModified by Organization Details LastModified Time metformin 500 mg tablet Take 1 tablet twice a day by oral route for 90 days. active Not Available Not Available No t Available atorvasta tin 20 mg tablet Take 1 tablet every day by oral route for 90 days. active Not Available Not Available No t Available triamcino lone acetonide 0.5 % topical cream APPLY CREAM TOPICALL Y ONCE DAILY active Not Available Not Available No t Available lisinopri l 20 mg tablet Take 1 tablet every day by oral route for 90 days. active Not Available Not Available No t Available tramadol 50 mg tablet TAKE 1 TABLET BY MOUTH EVERY 8 HOURS NEEDED FOR PAIN 08/07 completed Not Available Not Available Not Available sildenafi l 100 mg tablet TAKE 1 TABLET BY MOUTH ONCE DAILY 30 MINUTES TO 4 HOURS BEFORE SEXUAL ACTIVITY NEEDED active Not Available Not Available No t Available OneTouch Ultra Test strips USE TO TEST BLOOD SUGAR FOUR TIMES DAILY active Not Available Not Available No t Available paroxetin e 20 mg tablet Take 1 tablet by mouth once daily 2024 active Not Available Not Available Not Avai lable glimepiri de 4 mg tablet Take 1 tablet every day by oral route before meal(s) for 90 days. active Not Available Not Available No t Available Jardiance 25 mg tablet 2024 active Not Available Not Available Not Avai lable Mounjaro 7.5 mg/0.5 mL subcutane ous pen injector INJECT 7.5 MG UNDER THE SKIN ONCE WEEKLY 08/07 completed Not Available Not Available Not Available Mounjaro 5 mg/0.5 mL subcutane ous pen injector INJECT 5MG SUBCUTAN EOUSLY ONCE WEEKLY 08/07 completed Not Available Not Available Not Available Ozempic 0.25 mg or 0.5 mg (2 mg/3 mL) subcutane ous pen injector Inject 0.25 mg every week by subcutan eous route. active samples were given at last appt. Not Available Not Available Not Available Vitals Date Recorded Body weight Body mass index (BMI) Body height Respiratory rate Oxygen saturation Oxygen saturation in Arterial blood by Pulse oximetry Heart rate Systolic blood pressure Diastolic blood pressure Provider Name and Address Organization Details Last Updated DateTime 71504.1 7 g 30.6 kg/m2 177.8 cm 20 /min 99 % 99 % 62 /min 126 mm[Hg] 82 mm[Hg] Julita Meneses MA [facility] 10:05:27 Date Recorded Systolic blood pressure Diastolic blood pressure Provider Name and Address Organization Details Last Updated DateTime 08/07/2024 118 mm[Hg] 70 mm[Hg] TIM Fitzgerald Attn: [address]ing[address] [place], [address], [facility] 08/07/2024 10:30:30 Social History Question Answer Notes LastModified by Organizat ion Details LastModified Time Tobacco Smoking Status Former Smoker Juliat Meneses MA null, [facility] 08/07/2024 09:54:30 Do You Have An Advance Directive? Yes Information n ot available 08/07/2024 Are You Blind Or Do You Have Difficulty Seeing? No Glasses Information n ot available 08/07/2024 What Is Your Level Of Caffeine Consumption? None Information not available 08/07/2024 In The 14 Days Before Symptom Onset, Have You Had Close Contact With A Laboratory-confirm ed COVID-19 While That Case Was Ill? No Information n ot available 08/07/2024 In The 14 Days Before Symptom Onset, Have You Had Close Contact With A Person Who Is Under Investigation For COVID-19 While That Person Was Ill? No Information not available 08/07/2024 Have You Been To An Area Known To Be High Risk For COVID-19? No Information not available 08/07/2024 Are You Deaf Or Do You Have Serious Difficulty Hearing? No Information not available 08/07/2024 What Type Of Diet Are You Following? REGULAR Information n ot available 08/07/2024 Are There Any Guns Present In Your Home? No Information not available 08/07/2024 What Was The Date Of Your Most Recent Tobacco Screening? 08/07/2024 Information not available 08/07/2024 What Is Your Current Pack Years? 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 Information not available 08/07/2024 Do You Use Your Seat Belt Or Car Seat Routinely? Yes Information not available 08/07/2024 Do You Have Smoke And Carbon Monoxide Detectors In Your Home? Yes Information not available 08/07/2024 How Much Tobacco Do You Smoke? No Information not available 08/07/2024 Do You Use Sunscreen Routinely? No Information not available 08/07/2024 Has Tobacco Cessation Counseling Been Provided? No Information not available 08/07/2024 Sex: Male Functional Status Question Answer Note LastModified by Organizat ion Details LastModified Time Do you use any illicit or recreational drugs? No Information not available 08/07/2024 Do you or have you ever used any other forms of tobacco or nicotine? No Information not available 08/07/2024 What is your level of alcohol consumption? Occasional Information not available 08/07/2024 Are you able to care for yourself? Yes Information n ot available 08/07/2024 What is your exercise level? None Information not available 08/07/2024 Mental Status None recorded. Family History Relationship Description Onset Age of this Age Resolved Age Notes LastModified by Organization Details LastModified Time Brother Harmful pattern of use of alcohol [email or web address] Not available 2024 09:54:07 Mother Hypertensive disorder [email or web address] Not available 2024 09:54:14 Father Hypertensive disorder [email or web address] Not available 2024 09:54:14 Medical History Condition Response Coronary Artery Disease N Other N High Blood Pressure N Atrial Fibrillation N Kidney or Bladder Problems N Thyroid Problems N GI Problems N Depression N COPD N Blood Clots N Have you had a mammogram in the last yea r? N Skin Problems Y Anemia N Heart Attack ([place]) N Anxiety Disorder N Diabetes N Muscle, Joint, or Bone Problems N Seizures/Epilepsy N Have you had a colonoscopy in the last 1 0 years? N Acid Reflux (GERD) N Cancer N Stroke Y Asthma N Allergies N Have you had a PSA blood test in the las t year? N High Cholesterol Y Hepatitis N Liver Disease N Headaches N Heart Failure N Osteoporosis N Immunizations Vaccine Type Date Status Note Provider Hay doll and Address Organization Details Recorded Time Influenza, high-dose, quadrivalent, PF 07/21/2020 completed BLAYNE [place], [place] [facility] 08/07/2024 09:55:06 Influenza, adjuvanted, quadrivalent, PF 05/05/2021 completed BLAY[place] [facility] 08/07/2024 09:55:06 COVID-19, mRNA, LNP-S, PF, 30 mcg/0.3 mL dose 09/01/2020 completed BLAY[place] [facility] 08/07/2024 09:55:06 COVID-19, mRNA, LNP-S, PF, 30 mcg/0.3 mL dose 09/29/2020 completed BLAY[place] [facility] 08/07/2024 09:55:06 COVID-19, mRNA, LNP-S, PF, 30 mcg/0.3 mL dose 05/05/2021 completed BLAYNE [place]ers[place] [facility] 08/07/2024 09:55:06 Past Encounters Encounter ID Performer Location Encounter Start Date Encounter Closed Date Diagnosis/Indication Diagnosis SNOMED-CT Code Diagnosis ICD10 Code Diagnosis Note [id number] Hi Ac MD [facility] [place] [address] [place] [address] 08/07/2024 09:46:56 08/07/2024 12:04:52 Uncontrolled type 2 diabetes mellitus 676091066 E11.65 Patient has a history of elevated A1c. He is due for fasting labs now we will check A1c and urine microalbum in testing. Benign ess ential hypertension 6980316 I10 well controlled . 118/70 today. Continue lisinopril 20 mg daily Hyperlipidemia 14226711 E78.5 Check updated fasting lipid panel and continue atorvastat in 20 mg daily Long-term drug therapy 601755610 Z79.891 Routine CBC, liver function, metabolic panel and thyroid labs were ordered Ex-smoker 2810464 Z87.89 1 Patient has a history of smoking cigarettes we will refer him for his low-dose CT scan of the chest Osteoarthr itis of knee 377548530 M17.[address] wilson for injections . Screening for malignant neoplasm of prostate 945441645 Z12.5 Annual PSA is due Generalize d anxiety disorder 49097547 F41.1 well controlled on paroxetine 20mg daily. Body mass index 30+ - obesity 083525564 Z68.30 BMI is 30.6 Obesity 312024727 E66.9 Health Concerns Section Related Observation LastModified by Organization Detai ls LastModified Time None Recorded Concern Status LastModified by Organization Details LastModified Time None Recorded Advance Directives Directive Y: Payers Encounter Date Sequence Insurance Name Policy Number Policy Wilson Covered Member ID Wilson Member ID Guarantor Name 08/07/2024 1 [facility] (MEDICARE REPLACEMENT/A DVANTAGE - PPO) [id number] James Barba [id number] James Barba Notes Date Note Type Note Provider Name and Address Organization Details Recorded Time 08/07/19 25 text/htm l Anxiety/DepressionReported bypatient.Notes:Anxiety, a lot related to driving. paroxetine helped that many years ago.DiabetesReported bypatient.Notes:100-110 fasting morning sugars at this time, back on ozempic. is out of jardiance.HyperlipidemiaRepor emilia bypatient.Notes:For cholesterol management patient is taking atorvastatin 20 mg daily. He is due for updated fasting lipid panelHypertensionReported bypatient.Notes:For blood pressure control patient is taking lisinopril 20 mg daily Hx of Right RTC surgery repair.Hx of Dupuytren's contractures. TIM Fitzgerald Attn: Accounting,[address] [place], [address], [facility] 08/23/2024 23:02:31
--- OUTSIDE RECORDS SUMMARY | 2024-12-07 14:21 | XMS_ITS | Clinical Summary ---
Author Organization [facility] Address [address] [place] [address] Care Team Providers Care University Archivist Name Role Phone Unavailable Primary Care Provider Unavailabl e Source Comments [facility],non-owned Affiliates and Associated Physician Practices is amultiple site organization consisting of ambulatory clinics and hospital sitesin [place], [place], [place] and [place]. This disclosure is being madepursuant to the Care Everywhere program and may not contain all information available regarding this patient. 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 Gender Identity Not on file Sexual Orientation Not on file Plan of Treatment Health Maintenance Due Date Last Done Comments COLOGUARD (AGES 45-75) - COL ON CA SCREENING 1953 COLON MONITORING 1953 COLONOSCOPY - COLON CA SCREENING 1953 CT COLONOGRAPHY - COLON CA SCREENING 1953 Colorectal Cancer Screening 1953 FIT - COLON CA SCREENING 1953 FLEX SIG - COLON CA SCREENING 1953 LIPID TESTING 1953 HEPATITIS C SCREENING 11/18/1971 DTAP/TDAP/TD VACCINES (1 - Tdap) 1972 PNEUMOCOCCAL VACCINE 50+ (1 of 1 - PCV) 11/23/2003 ZOSTER VACCINE (1 of 2) 11/23/2003 COVID-19 VACCINE ( - 2023-2 5 season) 2024 DEPRESSION SCREENING 07/25/2024 MEDICARE AWV CALENDAR YEAR 2024 INFLUENZA VACCINE (Season Ended) 2025 Respiratory Syncytial Virus (RSV) Vaccine Pt: or over 60 yrs (1 - 1-dose 75+ series) 2028 HEPATITIS B VACCINE Aged Out No longe r eligible based on patient's age to complete this topic HIB VACCINE Aged Out No longer eligi ble based on patient's age to complete this topic HPV VACCINE Aged Out No longer eligi ble based on patient's age to complete this topic MENINGOCOCCAL (Group B) VACC INE SHARED DECISION-MAKING Aged Out No longer eligibl e based on patient's age to complete this topic MENINGOCOCCAL GROUPS A/C/Y/W VACCINE Aged Out No longer eligible b ased on patient's age to complete this topic Insurance * Guarantor: MAGDIEL BARBA Account Type Relation to Patient Date of Phone Billing Address Personal/Family Spouse [phone] MANAGED MEDICARE ADV SELF PAY NO INSURANCE Member Subscriber Plan / Payer (Ef fective for All Dates) Name:Magdiel Barba Member ID:Not on file Relation to Subscriber:Not on file Name:MAGDIEL BARBA Subscriber ID:Not on file Address: [address] [place] [address] Payer ID:Not on file Group ID:Not on file Type:Self Pay Address: [facility] MANAGED MEDICARE ADV SELF PAY NO INSURANCE Member Subscriber Plan / Payer (Ef fective for All Dates) Name:Magdiel Barba Member ID:Not on file Relation to Subscriber:Not on file Name:JAMESONMAGDIEL CASTORENA Subscriber ID:Not on file Address: [address] [place] [address] Payer ID:Not on file Group ID:Not on file Type:Self Pay Address: [facility] MANAGED MEDICARE ADV SELF PAY NO INSURANCE Member Subscriber Plan / Payer (Ef fective for All Dates) Name:Magdiel Barba Member ID:Not on file Relation to Subscriber:Not on file Name:MAGDIEL BARBA Subscriber ID:Not on file Address: [address] [place] [address] Payer ID:Not on file Group ID:Not on file Type:Self Pay Address: [facility] MANAGED MEDICARE ADV
[2024-12-07 15:43] LABS: Hematocrit 46.5 % (42.0-52.0); Hemoglobin 15.6 g/dL (14.0-18.0)
[2024-12-07 15:58] LABS: Albumin Level 4.6 g/dL (3.5-5.1); Estimated Glomerular Filt Rate > 60
== END 2024-12-07 14:18 | disposition home or self-care (01) ==
PROVIDERS: PCP Physician Assistant; Visit Provider Orthopaedic Surgery
DX: E78.5 Hyperlipidemia, unspecified (principal); E11.69 Type 2 diabetes mellitus with other specified complication; M17.12 Unilateral primary osteoarthritis, left knee; M25.462 Effusion, left knee
CPT/HCPCS: 36415; 73700; 82040; 82565; 85014; 85018

== ENCOUNTER 2025-01-30 10:08 | Outpatient (CLI) | payer MEDICARE, SELFPAY ==
--- NOTE | ~2025-01-30 | US_ITS ---
Ankle Brachial Index with Ultrasound Dopplers and Pulse Volume Recordings Technique: Pressures in the arm and lower extremity were obtained. Additionally, arterial and pulse v olume waveforms were obtained bilaterally. Findings: Segmental pressures Right posterior tibial: 163 Right dorsalis pedis: 142 Left posterior tibial: 158 Left dorsalis pedis: 103 There are triphasic and biphasic waveforms bilaterally. Monophasic waveforms within the great toe bilaterally IRA Right 1.2 Left 1.2 TBI Right 0.72 Left 0.68 Impression: Normal IRA, although may be false elevation given patient's diabetic history. Borderline TBI with worse disease in the left, when compared to the right Reviewed, dictated and finalized at location A. Impression: Normal IRA, although may be false elevation given patient's diabeti c history. Borderline TBI with worse disease in the left, when compared to the right
--- OUTSIDE RECORDS SUMMARY | 2025-01-30 10:18 | XMS_ITS | Continuity of Care Document ---
Author Organization [facility] Address [address] [place] [address] Phone Care Team Providers Care Hydrometallurgical Engineer Name Role Phone José Antonio Douglas DO Unavailable Unavailable Advance Directives Directive Yes / No Effective Date File Name No Information Encounters Encounter Description Practice Location Reason(s) For Visit Diagnoses Date Provider Providers Copied on Encounter [facility], [address], [place], [place], [id number], tel:[phone] [facility] No Information Misael Sánchez. [address] [place], [address], . tel: [phone] Family History Family Member Type Diagnosis Age At Onset No Information Payers Payer name Insurance type Covered libertarian ID Authoriza tion(s) No Information Social History [...]
--- OUTSIDE RECORDS SUMMARY | 2025-01-30 10:18 | XMS_ITS | Clinical Summary ---
Author Organization [facility] Address [address] [place] [address] Care Team Providers Care Employee Communications Specialist Name Role Phone Unavailable Primary Care Provider Unavailabl e Source Comments [facility] [employer],non-owned Affiliates and Associated Physician Practices is amultiple site organization consisting of ambulatory clinics and hospital sitesin [place], [place], [place] and [place]. This disclosure is being madepursuant to the Care Everywhere program and may not contain all information available regarding this patient. 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 Gender Identity Not on file Sexual Orientation [...] MEDICARE AWV CALENDAR YEAR 2024 INFLUENZA VACCINE (#1) 2025 Respiratory Syncytial Virus (RSV) Vaccine Pt: [...] patient's age to complete this topic Insurance SELF PAY NO INSURANCE Member Subscriber Plan / Payer (Ef fective for All Dates) Name:Magdiel Barba Member ID:Not on file Relation to Subscriber:Not on file Name:MAGDIEL BARBA Subscriber ID:Not on file Address: [address] [place] [address] Payer ID:Not on file Group ID:Not on file Type:Self Pay Address: [facility] MANAGED MEDICARE ADV SELF PAY NO INSURANCE Member Subscriber Plan / Payer (Ef fective for All Dates) Name:Magdiel Barba Member ID:Not on file Relation to Subscriber:Not on file Name:JAMESONMAGDIEL ACSTORENA Subscriber ID:Not on file Address: [address] [place] [address] Payer ID:Not on file Group ID:Not on file Type:Self Pay Address: [facility] MANAGED MEDICARE ADV SELF PAY NO INSURANCE Member Subscriber Plan / Payer (Ef fective for All Dates) Name:Magdiel Barba Member ID:Not on file Relation to Subscriber:Not on file Name:MAGDIEL BARBA Subscriber ID:Not on file Address: [address] [place] [address] Payer ID:Not on file Group ID:Not on file Type:Self Pay Address: [facility] MANAGED MEDICARE ADV
--- OUTSIDE RECORDS SUMMARY | 2025-01-30 10:18 | XMS_ITS | Clinical Summary ---
Author Organization [facility] Address [address] [place] [address] Care Team Providers Care Laser Engraver Name Role Phone Unavailable Primary Care Provider [...]
--- OUTSIDE RECORDS SUMMARY | 2025-01-30 10:18 | XMS_ITS | Data Portability ---
Author Organization COURTNEY NICKWayne ButlerPillager Tawnya Address [address] [facility] [place] [address] Care Team Providers Care Senior It Assistant Name Role Phone ADRIANA CARLTON Primary Care [...] PSA, total, serum or plasma 2024 025 [place] [facility], [address], [place], [address], 08/25/2024 07:10:26 HbA1c (hemoglob in A1c), blood 2024 025 [place] [facility], [address], [place], [address], 08/25/2024 07:10:24 microalbu min, urine 2024 025 [place] [facility], [address], [place], [address], 08/25/2024 07:10:19 CBC w/ auto diff 2024 025 [facility], [address], [place], [address], 08/25/2024 07:10:25 hepatic function panel, serum 2024 025 [place] [facility], [address], [place], [address], 08/25/2024 07:10:22 BMP, serum or plasma 2024 025 [place] [facility], [address], [place], [address], 08/25/2024 07:10:23 TSH + free T4, serum 2024 025 [place] [facility], [address], [place], [address], 08/25/2024 07:10:20 lipid panel, serum 2024 025 [place] [facility], [address], [place], [address], 08/25/2024 07:10:21 Referral None recorded. Procedures None recorded. Surgeries None recorded. Imaging LDCT, chest, for lung cancer screening 2024 025 [facility] (Imaging), [address] [facility] [address], [place], [address], 08/30/2024 11:41:45 Medication Orders None recorded. Patient TargetsNo targets recorded. Patient Instructions Encounter Date Encounter Id Patient Instructions Last Modified By Organization Details Last Modified Time 08/07/2024 [id number] A healthy lifestyle: care instructions Not available 08/07/2024 10:32:03 Reason for Referral None Reported. Results Created Date Observation Date Name Description Value Unit Range Abnormal Flag Note LastModifiedBy Organization Detail LastModifiedTime 08/24/19 25 08/25/2024 ALBUM IN, RANDO M URINE albumin, urine <3.0 ug/mL notest ab. Not Available [facility] ([facility]) [address] [facility], [place], [address], 08/25/2024 07:10:19 08/24/19 25 08/25/2024 TSH+F REE T4 TSH 2.580 uIU/m L 0.450- 4.500 Not Available [facility] ([facility]) [address] [place], [address], 08/25/2024 07:10:20 08/24/19 25 08/25/2024 TSH+F REE T4 T4,free(dire ct) 1.07 NG/dL 0.82-1 .77 Not Available [facility] ([facility]) [address] [place], [address], 08/25/2024 07:10:20 08/24/19 25 08/25/2024 LIPID PANEL cholesterol, total 115 mg/dL 100-19 9 Not Available [facility] ([facility]) [address] [place], [address], 08/25/2024 07:10:21 08/24/19 25 08/25/2024 LIPID PANEL triglyceride s 90 mg/dL 0-149 Not Available [facility] ([facility]) [address] [place], [address], 08/25/2024 07:10:21 08/24/19 25 08/25/2024 LIPID PANEL HDL cholesterol 37 mg/dL >39 below low normal Not Available [facility] ([facility]) [address] [place], [address], 08/25/2024 07:10:21 08/24/19 25 08/25/2024 LIPID PANEL VLDL cholesterol padmini 18 mg/dL 5-40 Not Available [facility] ([facility]) [address] [place], [address], 08/25/2024 07:10:21 08/24/19 25 08/25/2024 LIPID PANEL LDL chol calc ([facility]) 60 mg/dL 0-99 Not Available [facility] ([facility]) [address] [place], [address], 08/25/2024 07:10:21 08/24/19 25 08/25/2024 HEPAT IC FUNCT ION PANEL (7) protein, total 6.6 g/dL 6.0-8. 5 Not Available [facility] ([facility]) [address] [place], [address], 08/25/2024 07:10:22 08/24/19 25 08/25/2024 HEPAT IC FUNCT ION PANEL (7) albumin 4.2 g/dL 3.9-4. 9 Not Available [facility] ([facility]) [address] [place], [address], 08/25/2024 07:10:22 08/24/19 25 08/25/2024 HEPAT IC FUNCT ION PANEL (7) bilirubin, total 0.4 mg/dL 0.0-1. 2 Not Available [facility] ([facility]) [address] [place], [address], 08/25/2024 07:10:22 08/24/19 25 08/25/2024 HEPAT IC FUNCT ION PANEL (7) bilirubin, direct 0.14 mg/dL 0.00-0 .40 Not Available [facility] ([facility]) [address] [place], [address], 08/25/2024 07:10:22 08/24/19 25 08/25/2024 HEPAT IC FUNCT ION PANEL (7) alkaline phosphatase 71 IU/L 44-121 Not Available [facility] ([facility]) [address] [facility] [place], [address], 08/25/2024 07:10:22 08/24/19 25 08/25/2024 HEPAT IC FUNCT ION PANEL (7) AST (SGOT) 16 IU/L 0-40 Not Available [facility] ([facility]) [address] [place], [address], 08/25/2024 07:10:22 08/24/19 25 08/25/2024 HEPAT IC FUNCT ION PANEL (7) ALT (SGPT) 17 IU/L 0-44 Not Available [facility] ([facility]) [address] [place], [address], 08/25/2024 07:10:22 08/24/19 25 08/25/2024 BMP7+ EGFR glucose 188 mg/dL 70-99 above high normal Not Available [facility] ([facility]) [address] [place], [address], 08/25/2024 07:10:23 08/24/19 25 08/25/2024 BMP7+ EGFR BUN 18 mg/dL 8-27 Not Available [facility] ([facility]) [address] [place], [address], 08/25/2024 07:10:23 08/24/19 25 08/25/2024 BMP7+ EGFR creatinine 0.84 mg/dL 0.76-1 .27 Not Available [facility] ([facility]) [address] [place], [address], 08/25/2024 07:10:23 08/24/19 25 08/25/2024 BMP7+ EGFR eGFR 94 mL/mi n/1.7 3 >59 Not Available [facility] ([facility]) [address] [place], [address], 08/25/2024 07:10:23 08/24/19 25 08/25/2024 BMP7+ EGFR sodium 138 mmol/ L 134-14 4 Not Available [facility] ([facility]) [address] [place], [address], 08/25/2024 07:10:23 08/24/19 25 08/25/2024 BMP7+ EGFR potassium 4.4 mmol/ L 3.5-5. 2 Not Available [facility] ([facility]) [address] [facility], [place], [address], 08/25/2024 07:10:23 08/24/19 25 08/25/2024 BMP7+ EGFR chloride 101 mmol/ L 96-106 Not Available [facility] ([facility]) [address] [facility], [place], [address], 08/25/2024 07:10:23 08/24/19 25 08/25/2024 BMP7+ EGFR carbon dioxide, total 22 mmol/ L 20-29 Not Available [facility] ([facility]) [address] [facility], [place], [address], 08/25/2024 07:10:23 08/24/19 25 08/24/2024 HEMOG LOBIN A1C hemoglobin A1C 8.7 % 4.8-5. 6 above high normal Predi abete s: 5.7 - 6.4 Diabe angela: >6.4 Glyce robe contr ol for adult s with diabe angela: <7.0 Not Available [facility] ([facility]) [address] [facility], [place], [address], 08/25/2024 07:10:24 08/24/19 25 08/24/2024 CBC WITH DIFFE RENTI AL/PL ATELE T WBC 5.3 x10e3 /uL 3.4-10 .8 Not Available [facility] ([facility]) [address] [place], [address], 08/25/2024 07:10:25 08/24/19 25 08/24/2024 CBC WITH DIFFE RENTI AL/PL ATELE T RBC 4.73 x10e6 /uL 4.14-5 .80 Not Available [facility] ([facility]) [address] [place], [address], 08/25/2024 07:10:25 08/24/19 25 08/24/2024 CBC WITH DIFFE RENTI AL/PL ATELE T hemoglobin 14.5 g/dL 13.0-1 7.7 Not Available [facility] ([facility]) [address] [facility], [place], [address], 08/25/2024 07:10:25 08/24/19 25 08/24/2024 CBC WITH DIFFE RENTI AL/PL ATELE T hematocrit 43.0 % 37.5-5 1.0 Not Available [facility] ([facility]) [address] [facility], [place], [address], 08/25/2024 07:10:25 08/24/19 25 08/24/2024 CBC WITH DIFFE RENTI AL/PL ATELE T MCV 91 fL 79-97 Not Available [facility] ([facility]) [address] [facility], [place], [address], 08/25/2024 07:10:25 08/24/19 25 08/24/2024 CBC WITH DIFFE RENTI AL/PL ATELE T MCH 30.7 pg 26.6-3 3.0 Not Available [facility] ([facility]) [address] [facility], [place], [address], 08/25/2024 07:10:25 08/24/19 25 08/24/2024 CBC WITH DIFFE RENTI AL/PL ATELE T MCHC 33.7 g/dL 31.5-3 5.7 Not Available [facility] ([facility]) [address] [facility], [place], [address], 08/25/2024 07:10:25 08/24/19 25 08/24/2024 CBC WITH DIFFE RENTI AL/PL ATELE T RDW 12.5 % 11.6-1 5.4 Not Available [facility] ([facility]) [address] [place], [address], 08/25/2024 07:10:25 08/24/19 25 08/24/2024 CBC WITH DIFFE RENTI AL/PL ATELE T platelets 271 x10e3 /uL 150-45 0 Not Available [facility] ([facility]) [address] [facility], [place], [address], 08/25/2024 07:10:25 08/24/19 25 08/24/2024 CBC WITH DIFFE RENTI AL/PL ATELE T neutrophils 52 % notest ab. Not Available [facility] ([facility]) [address] [facility], [place], [address], 08/25/2024 07:10:25 08/24/19 25 08/24/2024 CBC WITH DIFFE RENTI AL/PL ATELE T lymphs 29 % notest ab. Not Available [facility] ([facility]) [address] [facility], [place], [address], 08/25/2024 07:10:25 08/24/19 25 08/24/2024 CBC WITH DIFFE RENTI AL/PL ATELE T monocytes 9 % notest ab. Not Available [facility] ([facility]) [address] [facility], [place], [address], 08/25/2024 07:10:25 08/24/19 25 08/24/2024 CBC WITH DIFFE RENTI AL/PL ATELE T eos 8 % notest ab. Not Available [facility] ([facility]) [address] [facility], [place], [address], 08/25/2024 07:10:25 08/24/19 25 08/24/2024 CBC WITH DIFFE RENTI AL/PL ATELE T basos 2 % notest ab. Not Available [facility] ([facility]) [address] [facility], [place], [address], 08/25/2024 07:10:25 08/24/19 25 08/24/2024 CBC WITH DIFFE RENTI AL/PL ATELE T neutrophils (absolute) 2.8 x10e3 /uL 1.4-7. 0 Not Available [facility] ([facility]) [address] [facility], [place], [address], 08/25/2024 07:10:25 08/24/19 25 08/24/2024 CBC WITH DIFFE RENTI AL/PL ATELE T lymphs (absolute) 1.5 x10e3 /uL 0.7-3. 1 Not Available [facility] ([facility]) [address] [facility], [place], [address], 08/25/2024 07:10:25 08/24/19 25 08/24/2024 CBC WITH DIFFE RENTI AL/PL ATELE T monocytes(ab solute) 0.5 x10e3 /uL 0.1-0. 9 Not Available [facility] ([facility]) [address] [facility], [place], [address], 08/25/2024 07:10:25 08/24/19 25 08/24/2024 CBC WITH DIFFE RENTI AL/PL ATELE T eos (absolute) 0.4 x10e3 /uL 0.0-0. 4 Not Available [facility] ([facility]) [address] [facility], [place], [address], 08/25/2024 07:10:25 08/24/19 25 08/24/2024 CBC WITH DIFFE RENTI AL/PL ATELE T baso (absolute) 0.1 x10e3 /uL 0.0-0. 2 Not Available [facility] ([facility]) [address] [facility], [place], [address], 08/25/2024 07:10:25 08/24/19 25 08/24/2024 CBC WITH DIFFE RENTI AL/PL ATELE T immature granulocytes 0 % notest ab. Not Available [facility] ([facility]) [address] [facility], [place], [address], 08/25/2024 07:10:25 08/24/19 25 08/24/2024 CBC WITH DIFFE RENTI AL/PL ATELE T immature grans (abs) 0.0 x10e3 /uL 0.0-0. 1 Not Available [facility] ([facility]) [address] [facility], [place], [address], 08/25/2024 07:10:25 08/24/19 25 08/25/2024 PROST ATE-S [...] kits canno t be used inter vines eaerwin . Resul ts canno t be inter prete d as absol andrew evide nce of the prese nce or absen ce of adrienne turner se. Not Available [facility] ([facility]) [address] [facility], [place], [address], 08/25/2024 07:10:26 08/30/19 25 08/30/2024 LDCT, chest , for lung cance r scree jeanmarie No observ ation record ed. [facility] [address], [place], [address], 09/03/2024 16:39:33 12/11/19 25 12/07/2024 CT, lower extre mity, w/o contr ast No observ ation record ed. [email or web address] [place] [address] [address], [place], [address], 01/04/2025 08:36:48 Result Notes None recorded. Problems Name Problem SNOMED Code Status Onset Date Resolution Date Notes Provider Name and Address Organization Details Recorded Time Body mass index 30+ - obesity 223486576 Active 2024 Julita Meneses MA null, [place] [facility] 10:04:02 Ex-smoker 4568087 Active 2024 TIM Fitzgerald Attn: Corin clark,[address] [place], [address], [place] [facility] 10:30:51 Long-term drug therapy Active 2024 TIM Fitzgerald Attn: Corin clark,[address] [place], [address], [place] [facility] 10:30:52 Osteoarthritis of knee 139856506 Active 2024 TIM Fitzgerald Attn: Corin clark,[address] [place], [address], [place] [facility] 10:30:54 Generalized anxiety disorder 38031081 Active 2024 TIM Fitzgerald Attn: Corin clark,[address] [place], [address], [place] [facility] 10:30:56 Hyperlipidemia 87745860 Active 2024 TIM Fitzgerald Attn: Corin clark,[address] [place], [address], [place] [facility] 10:31:01 Benign essential hypertension 0601444 Active 2024 TIM Fitzgerald Attn: Corin clark,[address] [place], [address], [place] [facility] 10:31:04 Uncontrolled type 2 diabetes mellitus 241566804 Active 2024 TIM Fitzgerald Attn: Corin g,[address] [place], [address], [place] [facility] 10:31:05 Obesity 392264133 Active 2024 TIM Fitzgerald Attn: Corin clark [address], [place], [address], [place] [facility] 10:31:24 Problem Notes None recorded. Medical Equipment None Reported. [...] Not Available Not Available Vitals Date Recorded Systolic And Diastolic Provider Name and Address Organization Details Last Updated DateTime 08/07/2024 118/70 mm[Hg] TIM Fitzgerald Attn: Accounting [facility], [place], [address], [facility] 08/07/2024 10:30:30 Date Recorded Body weight Body mass index (BMI) Body height Respiratory rate Oxygen saturation Oxygen saturation in Arterial blood by Pulse oximetry Heart rate Systolic And Diastolic Provider Name and Address Organization Details Last Updated DateTime 67665.1 7 g 30.6 kg/m2 177.8 cm 20 /min 99 % 99 % 62 /min 126/82 mm[Hg] Julita Meneses MA [facility] 10:05:27 Social History Question Answer Notes LastModified by Organizat ion Details LastModified Time Tobacco Smoking Status Former Smoker Julita Meneses MA null, [facility] 08/07/2024 09:54:30 Do You Have An Advance [...] 08/07/2024 What Is Your Current Pack Years? 30ormorepac joses Information not available 08/07/2024 What Is Your [...] Response Coronary Artery Disease N Other N Atrial Fibrillation N High Blood Pressure N Depression N COPD N Blood Clots N Anxiety Disorder N Muscle, Joint, or Bone Problems N Acid Reflux (GERD) N Cancer N Stroke Y High Cholesterol Y Liver Disease N Headaches N Kidney or Bladder Problems N Thyroid Problems N GI Problems N Have you had a mammogram in the last yea r? N Skin Problems Y Anemia N Heart Attack ([place]) N Diabetes N Seizures/Epilepsy N Have you had a colonoscopy in the last 1 0 years? N Asthma N Allergies N Have you had a PSA blood test in the las t year? N Hepatitis N Heart Failure N Osteoporosis N Immunizations [...] SNOMED-CT Code Diagnosis ICD10 Code Diagnosis Note [id number] Hi Ac MD [facility] [place] [address] [place] [address] 08/07/2024 09:46:56 08/07/2024 12:04:52 Uncontrolled type 2 diabetes mellitus 040977640 E11.65 Patient has a history of elevated A1c. He is due for fasting labs now we will check A1c and urine microalbum in testing. Benign ess ential hypertension 5224805 I10 well controlled . 118/70 today. Continue lisinopril 20 mg daily Hyperlipidemia 40204238 E78.5 Check updated fasting lipid panel and continue atorvastat in 20 mg daily Long-term drug therapy 390108715 Z79.891 Routine CBC, liver function, metabolic panel and thyroid labs were ordered Ex-smoker 2733589 Z87.89 1 Patient has a history of smoking cigarettes we will refer him for his low-dose CT scan of the chest Osteoarthr itis of knee 971568007 M17.[address] wilson for injections . Screening for malignant neoplasm of prostate 905522657 Z12.5 Annual PSA is due Generalize d anxiety disorder 90542587 F41.1 well controlled on paroxetine 20mg daily. Body mass index 30+ - obesity 054559846 Z68.30 BMI is 30.6 Obesity 350928407 E66.9 Health Concerns Section Related Observation LastModified by Organization Detai ls LastModified Time None Recorded Concern Status LastModified by Organization Details LastModified Time None Recorded Advance Directives Directive Y: Payers Insurance Date Sequence Insurance Name Policy Number Policy Wilson Covered Member ID Wilson Member ID Guarantor Name 08/28/[address] [facility] (MEDICARE REPLACEMENT/A DVANTAGE - PPO) [id number] James Barba [id number] James Barba Notes Date Note Type Note [...] Dupuytren's contractures. TIM Fitzgerald Attn: Accounting,[address] [facility], [place], [address], [place] [facility] 08/23/2024 23:02:31
== END 2025-01-30 10:09 | disposition home or self-care (01) ==
PROVIDERS: PCP Physician Assistant; Visit Provider Podiatrist Foot & Ankle Surgery
DX: I73.9 Peripheral vascular disease, unspecified (principal)
CPT/HCPCS: 93923

== ENCOUNTER 2025-02-13 07:54 | Outpatient (CLI) | payer MEDICARE, SELFPAY ==
--- OUTSIDE RECORDS SUMMARY | 2025-02-13 08:01 | XMS_ITS | Continuity of Care Document ---
Author Organization [facility] Address [address] [place] [address] Phone Care Team Providers Care Priming Powder Premix Blender Name Role Phone José Antonio Douglas DO Unavailable Unavailable Advance Directives Directive Yes / No Effective Date File Name No Information Encounters Encounter Description Practice Location Reason(s) For Visit Diagnoses Date Provider Providers Copied on Encounter [facility], [address], [place], [place], [id number], tel:[phone] [facility] No Information Misael Sánchez. [address] [place], [address], . tel: [phone] Family History Family Member Type Diagnosis Age At Onset No Information Payers Payer name Insurance type Covered constitution party ID Authoriza tion(s) No Information Social History [...]
--- OUTSIDE RECORDS SUMMARY | 2025-02-13 08:01 | XMS_ITS | Clinical Summary ---
Author Organization [facility] Address [address] [place] [address] Care Team Providers Care Development Administrator Name Role Phone Unavailable Primary Care Provider [...]
--- OUTSIDE RECORDS SUMMARY | 2025-02-13 08:01 | XMS_ITS | Data Portability ---
Author Organization [facility] [employer] [facility] Tawn[place] Address [address] [facility] [place] [address] Care Team Providers Care Student Specialist Name Role Phone ADRIANA CARLTON Primary Care Provider Unavailab le Assessment Encounter Date Assessment Date Assessment LastModified by Organization Details LastModified Time 08/07/2024 08/07/2024 Colonoscopy due February 10, 2030 Due for labs Not available 08/07/2024 10:15:21 Plan of Treatment Reminders Order Date Submit Date Provider Last Modified By Organization Details Last Modified Time Details Appointments ANY 15 2025 09:00A M TIM Fitzgerald Not available Not available Not available Lab PSA, total, serum or plasma 2024 025 [facility], [address], [place], [address], 08/25/2024 07:10:26 HbA1c (hemoglob in A1c), blood 2024 025 [facility], [address], [address], [place], [address], 08/25/2024 07:10:24 microalbu min, urine 2024 025 [facility], [address], [address], [place], [address], 08/25/2024 07:10:19 CBC w/ auto diff 2024 025 [facility], [address], [address], [place], [address], 08/25/2024 07:10:25 hepatic function panel, serum 2024 025 [facility], [address], [address], [place], [address], 08/25/2024 07:10:22 BMP, serum or plasma 2024 025 [facility] [address], [place], [address], 08/25/2024 07:10:23 TSH + free T4, serum 2024 025 [facility], [address], [place], [address], 08/25/2024 07:10:20 lipid panel, serum 2024 025 [facility], [address], [place], [address], 08/25/2024 07:10:21 Referral None recorded. Procedures None recorded. Surgeries None recorded. Imaging LDCT, chest, for lung cancer screening 2024 025 [facility] (Imaging), [address], [place], [address], 08/30/2024 11:41:45 Medication Orders None recorded. Patient TargetsNo targets recorded. Patient Instructions Encounter Date Encounter Id Patient Instructions Last Modified By Organization Details Last Modified Time 08/07/2024 [id number] A healthy lifestyle: care instructions Not available 08/07/2024 10:32:03 Reason for Referral None Reported. Results Created Date Observation Date Name Description Value Unit Range Abnormal Flag Note LastModifiedBy Organization Detail LastModifiedTime 08/24/19 25 08/25/2024 ALBUM IN, RANDO M URINE albumin, urine <3.0 ug/mL notest ab. Not Available [facility] ([facility]) [address] [facility], [place], [address], 08/25/2024 07:10:19 08/24/19 25 08/25/2024 TSH+F REE T4 TSH 2.580 uIU/m L 0.450- 4.500 Not Available [facility] ([facility]) [address] [place], [address], 08/25/2024 07:10:20 08/24/19 25 08/25/2024 TSH+F REE T4 T4,free(dire ct) 1.07 NG/dL 0.82-1 .77 Not Available [facility] ([facility]) [address] [place], [address], 08/25/2024 07:10:20 08/24/19 25 08/25/2024 LIPID PANEL cholesterol, total 115 mg/dL 100-19 9 Not Available [facility] ([facility]) [address] [place], [address], 08/25/2024 07:10:21 08/24/19 25 08/25/2024 LIPID PANEL triglyceride s 90 mg/dL 0-149 Not Available [facility] ([facility]) [address] [place], [address], 08/25/2024 07:10:21 08/24/19 25 08/25/2024 LIPID PANEL HDL cholesterol 37 mg/dL >39 below low normal Not Available [facility] ([facility]) [address] [place], [address], 08/25/2024 07:10:21 08/24/19 25 08/25/2024 LIPID PANEL VLDL cholesterol padmini 18 mg/dL 5-40 Not Available [facility] ([facility]) [address] [place], [address], 08/25/2024 07:10:21 08/24/19 25 08/25/2024 LIPID PANEL LDL chol calc ([facility]) 60 mg/dL 0-99 Not Available [facility] ([facility]) [address] [place], [address], 08/25/2024 07:10:21 08/24/19 25 08/25/2024 HEPAT IC FUNCT ION PANEL (7) protein, total 6.6 g/dL 6.0-8. 5 Not Available [facility] ([facility]) [address] [facility] [place], [address], 08/25/2024 07:10:22 08/24/19 25 08/25/2024 HEPAT IC FUNCT ION PANEL (7) albumin 4.2 g/dL 3.9-4. 9 Not Available [facility] ([facility]) [address] [facility] [place], [address], 08/25/2024 07:10:22 08/24/19 25 08/25/2024 HEPAT IC FUNCT ION PANEL (7) bilirubin, total 0.4 mg/dL 0.0-1. 2 Not Available [facility] ([facility]) [address] [facility] [place], [address], 08/25/2024 07:10:22 08/24/19 25 08/25/2024 HEPAT IC FUNCT ION PANEL (7) bilirubin, direct 0.14 mg/dL 0.00-0 .40 Not Available [facility] ([facility]) [address] [place], [address], 08/25/2024 07:10:22 08/24/19 25 08/25/2024 HEPAT IC FUNCT ION PANEL (7) alkaline phosphatase 71 IU/L 44-121 Not Available [facility] ([facility]) [address] [facility] [place], [address], 08/25/2024 07:10:22 08/24/19 25 08/25/2024 HEPAT IC FUNCT ION PANEL (7) AST (SGOT) 16 IU/L 0-40 Not Available [facility] ([facility]) [address] [place], [address], 08/25/2024 07:10:22 08/24/19 25 08/25/2024 HEPAT IC FUNCT ION PANEL (7) ALT (SGPT) 17 IU/L 0-44 Not Available [facility] ([facility]) [address] [facility] [place], [address], 08/25/2024 07:10:22 08/24/19 25 08/25/2024 BMP7+ EGFR glucose 188 mg/dL 70-99 above high normal Not Available [facility] ([facility]) [address] [facility] [place], [address], 08/25/2024 07:10:23 08/24/19 25 08/25/2024 BMP7+ EGFR BUN 18 mg/dL 8-27 Not Available [facility] ([facility]) [address] [place], [address], 08/25/2024 07:10:23 08/24/19 25 08/25/2024 BMP7+ EGFR creatinine 0.84 mg/dL 0.76-1 .27 Not Available [facility] ([facility]) [address] [place], [address], 08/25/2024 07:10:23 08/24/19 25 08/25/2024 BMP7+ EGFR eGFR 94 mL/mi n/1.7 3 >59 Not Available [facility] ([facility]) [address] [place], [address], 08/25/2024 07:10:23 08/24/19 25 08/25/2024 BMP7+ EGFR sodium 138 mmol/ L 134-14 4 Not Available [facility] ([facility]) [address] [place], [address], 08/25/2024 07:10:23 08/24/19 25 08/25/2024 BMP7+ EGFR potassium 4.4 mmol/ L 3.5-5. 2 Not Available [facility] ([facility]) [address] [facility], [place], [address], 08/25/2024 07:10:23 08/24/19 25 08/25/2024 BMP7+ EGFR chloride 101 mmol/ L 96-106 Not Available [facility] ([facility]) [address] [facility], [place], [address], 08/25/2024 07:10:23 08/24/19 25 08/25/2024 BMP7+ EGFR carbon dioxide, total 22 mmol/ L 20-29 Not Available [facility] ([facility]) [address] [facility], [place], [address], 08/25/2024 07:10:23 08/24/19 25 08/24/2024 HEMOG LOBIN A1C hemoglobin A1C 8.7 % 4.8-5. 6 above high normal Predi abete s: 5.7 - 6.4 Diabe angela: >6.4 Glyce robe contr ol for adult s with diabe angela: <7.0 Not Available [facility] ([facility]) [address] [facility], [place], [address], 08/25/2024 07:10:24 08/24/19 25 08/24/2024 CBC WITH DIFFE RENTI AL/PL ATELE T WBC 5.3 x10e3 /uL 3.4-10 .8 Not Available [facility] ([facility]) [address] [place], [address], 08/25/2024 07:10:25 08/24/19 25 08/24/2024 CBC WITH DIFFE RENTI AL/PL ATELE T RBC 4.73 x10e6 /uL 4.14-5 .80 Not Available [facility] ([facility]) [address] [place], [address], 08/25/2024 07:10:25 08/24/19 25 08/24/2024 CBC WITH DIFFE RENTI AL/PL ATELE T hemoglobin 14.5 g/dL 13.0-1 7.7 Not Available [facility] ([facility]) [address] [facility], [place], [address], 08/25/2024 07:10:25 08/24/19 25 08/24/2024 CBC WITH DIFFE RENTI AL/PL ATELE T hematocrit 43.0 % 37.5-5 1.0 Not Available [facility] ([facility]) [address] [facility], [place], [address], 08/25/2024 07:10:25 08/24/19 25 08/24/2024 CBC WITH DIFFE RENTI AL/PL ATELE T MCV 91 fL 79-97 Not Available [facility] ([facility]) [address] [facility], [place], [address], 08/25/2024 07:10:25 08/24/19 25 08/24/2024 CBC WITH DIFFE RENTI AL/PL ATELE T MCH 30.7 pg 26.6-3 3.0 Not Available [facility] ([facility]) [address] [facility], [place], [address], 08/25/2024 07:10:25 08/24/19 25 08/24/2024 CBC WITH DIFFE RENTI AL/PL ATELE T MCHC 33.7 g/dL 31.5-3 5.7 Not Available [facility] ([facility]) [address] [facility], [place], [address], 08/25/2024 07:10:25 08/24/19 25 08/24/2024 CBC WITH DIFFE RENTI AL/PL ATELE T RDW 12.5 % 11.6-1 5.4 Not Available [facility] ([facility]) [address] [place], [address], 08/25/2024 07:10:25 08/24/19 25 08/24/2024 CBC WITH DIFFE RENTI AL/PL ATELE T platelets 271 x10e3 /uL 150-45 0 Not Available [facility] ([facility]) [address] [facility], [place], [address], 08/25/2024 07:10:25 08/24/19 25 08/24/2024 CBC WITH DIFFE RENTI AL/PL ATELE T neutrophils 52 % notest ab. Not Available [facility] ([facility]) [address] [facility], [place], [address], 08/25/2024 07:10:25 08/24/19 25 08/24/2024 CBC WITH DIFFE RENTI AL/PL ATELE T lymphs 29 % notest ab. Not Available [facility] ([facility]) [address] [facility], [place], [address], 08/25/2024 07:10:25 08/24/19 25 08/24/2024 CBC WITH DIFFE RENTI AL/PL ATELE T monocytes 9 % notest ab. Not Available [facility] ([facility]) [address] [facility], [place], [address], 08/25/2024 07:10:25 08/24/19 25 08/24/2024 CBC WITH DIFFE RENTI AL/PL ATELE T eos 8 % notest ab. Not Available [facility] ([facility]) [address] [facility], [place], [address], 08/25/2024 07:10:25 08/24/19 25 08/24/2024 CBC WITH DIFFE RENTI AL/PL ATELE T basos 2 % notest ab. Not Available [facility] ([facility]) [address] [facility], [place], [address], 08/25/2024 07:10:25 08/24/19 25 08/24/2024 CBC WITH DIFFE RENTI AL/PL ATELE T neutrophils (absolute) 2.8 x10e3 /uL 1.4-7. 0 Not Available [facility] ([facility]) [address] [facility], [place], [address], 08/25/2024 07:10:25 08/24/19 25 08/24/2024 CBC WITH DIFFE RENTI AL/PL ATELE T lymphs (absolute) 1.5 x10e3 /uL 0.7-3. 1 Not Available [facility] ([facility]) [address] [facility], [place], [address], 08/25/2024 07:10:25 08/24/19 25 08/24/2024 CBC WITH DIFFE RENTI AL/PL ATELE T monocytes(ab solute) 0.5 x10e3 /uL 0.1-0. 9 Not Available [facility] ([facility]) [address] [facility], [place], [address], 08/25/2024 07:10:25 08/24/19 25 08/24/2024 CBC WITH DIFFE RENTI AL/PL ATELE T eos (absolute) 0.4 x10e3 /uL 0.0-0. 4 Not Available [facility] ([facility]) [address] [facility], [place], [address], 08/25/2024 07:10:25 08/24/19 25 08/24/2024 CBC WITH DIFFE RENTI AL/PL ATELE T baso (absolute) 0.1 x10e3 /uL 0.0-0. 2 Not Available [facility] ([facility]) [address] [facility], [place], [address], 08/25/2024 07:10:25 08/24/19 25 08/24/2024 CBC WITH DIFFE RENTI AL/PL ATELE T immature granulocytes 0 % notest ab. Not Available [facility] ([facility]) [address] [facility], [place], [address], 08/25/2024 07:10:25 08/24/19 25 08/24/2024 CBC WITH DIFFE RENTI AL/PL ATELE T immature grans (abs) 0.0 x10e3 /uL 0.0-0. 1 Not Available [facility] ([facility]) [address] [facility], [place], [address], 08/25/2024 07:10:25 08/24/19 25 08/25/2024 PROST ATE-S [...] turner se. Not Available [facility] ([facility]) [address] [facility], [place], [address], 08/25/2024 07:10:26 08/30/19 25 08/30/2024 LDCT, chest , for lung cance r scree jeanmarie No observ ation record ed. [facility] [address], [place], [address], 09/03/2024 16:39:33 12/11/19 25 12/07/2024 CT, lower extre mity, w/o contr ast No observ ation record ed. [address], [place], [address], 01/04/2025 08:36:48 01/31/20 25 01/30/2025 ankle brach ial index No observ ation record ed. [address] [place], [address], 01/31/2025 09:20:41 Result Notes None recorded. Problems Name Problem SNOMED Code Status Onset Date Resolution Date Notes Provider Name and Address Organization Details Recorded Time Body mass index 30+ - obesity 076985770 Active 2024 Julita Meneses MA null, [place] - [facility] 10:04:02 Ex-smoker 2414576 Active 2024 TIM Fitzgerald Attn: Accountin g,[address] [facility], [place], [address], [place] [facility] 5 10:30:51 Long-term drug therapy Active 2024 TIM Fitzgerald Attn: Accountin g,[address] [facility], [place], [address], [place] [facility] 5 10:30:52 Osteoarthritis of knee 790181459 Active 2024 TIM Fitzgerald Attn: Accountin g,[address] [facility], [place], [address], [place] [facility] 5 10:30:54 Generalized anxiety disorder 49024177 Active 2024 TIM Fitzgerald Attn: Accountin g,[address] [facility], [place], [address], [place] [facility] 5 10:30:56 Hyperlipidemia 16456206 Active 2024 TIM Fitzgerald Attn: Accountin g,[address] [facility], [place], [address], [place] [facility] 5 10:31:01 Benign essential hypertension 0404651 Active 2024 TIM Fitzgerald Attn: Accountin g,[address] [facility], [place], [address], [place] [facility] 5 10:31:04 Uncontrolled type 2 diabetes mellitus 354110861 Active 2024 TIM Fitzgerald Attn: Corin clark,[address] [facility], [place], [address], [place] [facility] 10:31:05 Obesity 849077681 Active 2024 TIM Fitzgerald Attn: Corin clark,[address] [facility], [place], [address], [place] [facility] 10:31:24 Overweight in adulthood with body mass index of 25 or more but less than 30 849931795 Active 2024 TIM Fitzgerald Attn: Corin clark,[address] [facility], [place], [address], [place] [facility] 5 10:08:57 Problem Notes None recorded. Medical Equipment None Reported. Allergies No known drug allergies Medications Name Sig Start Date Stop Date Status Note LastModified by Organization Details LastModified Time metformin 500 mg tablet TAKE 2 TABLETS BY MOUTH TWICE DAILY IN THE MORNING AND THE EVENING active Not Available Not Available No t Available atorvasta tin 20 mg tablet TAKE 1 TABLET BY MOUTH ONCE DAILY active Not Available Not Available No t Available triamcino lone acetonide 0.5 % topical cream APPLY CREAM TOPICALL Y ONCE DAILY 02/05 completed Not Available Not Available Not Available lisinopri l 20 mg tablet TAKE 1 TABLET BY MOUTH ONCE DAILY IN THE MORNING active Not Available Not Available No t Available sulfameth oxazole 800 mg-trimet hoprim 160 mg tablet TAKE 1 TABLET BY MOUTH EVERY 12 HOURS UNTIL GONE 02/05 completed Not Available Not Available Not Available tramadol 50 mg tablet TAKE 1 [...] t Available paroxetin e 20 mg tablet TAKE 1 TABLET BY MOUTH ONCE DAILY active Not Available Not Available No t Available glimepiri de 4 mg tablet Take 1 tablet every day by oral route before meal(s) for 90 days. active Not Available Not Available No t Available Jardiance 25 mg tablet 2024 active Not Available Not Available Not Avai lable Tresiba FlexTouch U-100 insulin 100 unit/mL (3 mL) subcutane ous pen INJECT 10 UNITS SUBCUTAN EOUSLY ONCE DAILY active Not Available Not Available No t Available Ozempic 1 mg/dose (4 mg/3 mL) subcutane ous pen injector INJECT 1MG SUBCUTAN EOUSLY ONCE WEEKLY active Not Available Not Available No t Available Mounjaro 7.5 mg/0.5 mL subcutane ous pen [...] mg every week by subcutan eous route. 02/05 completed samples were given at last appt. Not Available Not Available Not Available Vitals Date Recorded Systolic And Diastolic Provider Name and Address Organization Details Last Updated DateTime 08/07/2024 118/70 mm[Hg] TIM Fitzgerald Attn: Accounting,[address] [place], [address], [facility] 08/07/2024 10:30:30 Date Recorded Body weight Body mass index (BMI) Body height Respiratory rate Oxygen saturation Oxygen saturation in Arterial blood by Pulse oximetry Heart rate Systolic And Diastolic Provider Name and Address Organization Details Last Updated DateTime 5 24590.1 7 g 30.6 kg/m2 177.8 cm 20 /min 99 % 99 % 62 /min 126/82 mm[Hg] Julita Meneses MA [facility] 10:05:27 Date Recorded Respiratory rate Systolic And Diastolic Provider Name and Address Organization Details Last Updated DateTime 02/05/2025 18 /min 120/80 mm[Hg] TIM Fitzgerald Attn: Accounting,[address] [place], [address], [facility] 02/05/2025 10:21:30 Date Recorded Body height Body mass index (BMI) Body weight Oxygen saturation Oxygen saturation in Arterial blood by Pulse oximetry Heart rate Systolic And Diastolic Provider Name and Address Organization Details Last Updated DateTime 177.8 cm 28.8 kg/m2 29612.9 9 g 99 % 99 % 68 /min 118/82 mm[Hg] Julita Meneses MA [facility] 10:03:10 Social History Question Answer Notes LastModified by Organizat ion Details LastModified Time Tobacco Smoking Status Former Smoker Julita Meneses MA null, [facility] 08/07/2024 09:54:30 Do You Have An [...] Date Of Your Most Recent Tobacco Screening? 02/05/2025 Information not available 02/05/2025 What Is Your Current Pack Years? 30ormorepac kyears Information not available 08/07/2024 What Is Your [...] Skin Problems Y Anemia N Heart Attack ([place]) N Anxiety Disorder N Diabetes N Muscle, [...] Immunizations Vaccine Type Date Status Note Provider Nam e and Address Organization Details Recorded Time Influenza, [...] SNOMED-CT Code Diagnosis ICD10 Code Diagnosis Note [id number] Hi Ac MD [facility] [address] [place] [address] 08/07/2024 09:46:56 08/07/2024 12:04:52 Uncontrolled type 2 diabetes mellitus 217696787 E11.65 Patient has a history of elevated A1c. He is due for fasting labs now we will check A1c and urine microalbum in testing. Benign ess ential hypertension 7767779 I10 well controlled . 118/70 today. Continue lisinopril 20 mg daily Hyperlipidemia 55617661 E78.5 Check updated fasting lipid panel and continue atorvastat in 20 mg daily Long-term drug therapy 084608649 Z79.891 Routine CBC, liver function, metabolic panel and thyroid labs were ordered Ex-smoker 0318915 Z87.89 1 Patient has a history of smoking cigarettes we will refer him for his low-dose CT scan of the chest Osteoarthr itis of knee 963016096 M17.[address] wilson for injections . Screening for malignant neoplasm of prostate 717447118 Z12.5 Annual PSA is due Generalize d anxiety disorder 80196538 F41.1 well controlled on paroxetine 20mg daily. Body mass index 30+ - obesity 092946805 Z68.30 BMI is 30.6 Obesity 886991689 E66.9 [id number] Hi Ac MD [facility] e - Wilberto Rothman [address] [place] [address] 02/05/2025 09:51:08 02/05/2025 11:05:46 Overweight in adulthood with body mass index of 25 or more but less than 30 332365803 E66.3 Z68.28 BMI 28.8 Uncontroll ed type 2 diabetes mellitus 230333900 E11.65 A1c 6.5% recently. he does follow with endocrinol danni at [facility]. On glimepirid e 4 mg daily as well as Jardiance 25 mg daily metformin 500 mg 2 tablets twice daily and ozempic 1mg weekly now. Benign ess ential hypertension 3663338 I10 Continue lisinopril 20 mg daily Hyperlipidemia 59234152 E78.5 Check updated fasting lipid panel and continue atorvastat in 20 mg daily Generalize d anxiety disorder 69708827 F41.1 well controlled on paroxetine 20mg daily. Long-term drug therapy 250357923 Z79.891 Routine CBC, liver function, metabolic panel and thyroid labs were ordered Ex-smoker 0656541 Z87.89 1 Next low-dose CT of the chest due August 2025 Osteoarthr itis of knee 002754199 M17.[address] wilson for injections . Health Concerns Section Related Observation LastModified by Organization Detai ls LastModified Time None Recorded Concern Status LastModified by Organization Details LastModified Time None Recorded Advance Directives Directive Y: Payers Insurance Date Sequence Insurance Name Policy Number Policy Wilson Covered Member ID Wilson Member ID Guarantor Name 02/02/2025 1 [facility] (MEDICARE REPLACEMENT/A DVANTAGE - PPO) [id number] James Barba [id number] James Barba Notes Date Note Type Note [...] Dupuytren's contractures. TIM Fitzgerald Attn: Accounting,[address] [facility], [place], [address], [place] [facility] 08/23/2024 23:02:31
--- OUTSIDE RECORDS SUMMARY | 2025-02-13 08:01 | XMS_ITS | Clinical Summary ---
Author Organization [facility] Address [address] [place] [address] Care Team Providers Care Try On Baster Name Role Phone Unavailable Primary Care Provider Unavailabl e Source Comments [facility] [employer],non-owned Affiliates and Associated Physician Practices is amultiple site organization consisting of ambulatory clinics and hospital sitesin [place], [place], [place] and [place]. This disclosure is being madepursuant to the Care Everywhere program and may not contain all information available regarding this patient. Last updated 18.[facility] [employer] Social History Tobacco Use Types Packs/Day Years Used Date Smoking Tobacco: Never Assessed Sex and Gender Information Value Date Recorded Sex Assigned at Not on file Legal Sex Male 5:29 AM RIVET [employer]UNKY Gender Identity Not on file Sexual Orientation [...] Name:MAGDIEL BARBA Subscriber ID:Not on file Address: [address] [place] [address] Payer ID:Not on file Group ID:Not on file Type:Self Pay Address: [employer]ED [employer] ADV SELF PAY NO INSURANCE Member Subscriber Plan / Payer (Ef fective for All Dates) Name:Magdiel Barba Member ID:Not on file Relation to Subscriber:Not on file Name:JAMESONMAGDIEL CASTORENA Subscriber ID:Not on file Address: [address] [place] [address] Payer ID:Not on file Group ID:Not on file Type:Self Pay Address: [employer] ADV SELF PAY NO INSURANCE Member Subscriber Plan / Payer (Ef fective for All Dates) Name:Magdiel Barba Member ID:Not on file Relation to Subscriber:Not on file Name:MAGDIEL BARBA Subscriber ID:Not on file Address: [address] [place] [address] Payer ID:Not on file Group ID:Not on file Type:Self Pay Address: [employer] MEDIC[employer] ADV
[2025-02-13 09:18] LABS: Hematocrit 40.6 % (42.0-52.0); Hemoglobin 13.7 g/dL (14.0-18.0); Immature Granulocyte Percent A 0.3 % (0-0.5); Lymphocytes Absolute Auto 1.40 K/mm3 (0.9-3.2); Mean Corpuscular HGB Conc 33.7 g/dl (32-36); Mean Corpuscular Hemoglobin 30.0 pg (26-34); Mean Corpuscular Volume 89.0 fl (80-100); Nucleated Red Blood Cells Absolute Auto 0.000 K/mm3 (0.0-0.012); Nucleated Red Blood Cells Perc 0.0 % (0.0-0.2); Platelet Count Result 271 k/mm3 (150-375); Red Blood Count 4.56 M/mm3 (4.6-6.20); White Blood Count 6.0 K/mm3 (4.5-10.0)
[2025-02-13 09:39] LABS: Albumin Level 4.0 g/dL (3.5-5.1)
[2025-02-13 09:43] LABS: Anion Gap 12 mmol/L (4-12); Blood Urea Nitrogen 16 mg/dL (9-20); Calcium 9.4 mg/dL (8.4-10.2); Carbon Dioxide 20 mmol/L (22-30); Chloride 103 mmol/L (98-107); Estimated Glomerular Filt Rate > 60; Glucose 229 mg/dL (65-110); Potassium 4.5 mmol/L (3.4-5.0); Sodium 135 mmol/L (137-145)
[2025-02-13 10:33] LABS: MRSA (PCR) NOT DETECTED (NOT DETECTE)
[2025-02-13 13:20] LABS: Hemoglobin A1C 7.0 % (<5.7)
== END 2025-02-13 07:55 | disposition home or self-care (01) ==
LOC: ANHSURGERY 07:56
PROVIDERS: Anesthesiology; PCP Physician Assistant; Visit Provider Orthopaedic Surgery
DX: M17.12 Unilateral primary osteoarthritis, left knee (principal); E11.69 Type 2 diabetes mellitus with other specified complication
CPT/HCPCS: 36415; 80048; 80307; 82040; 83036; 85025; 87641

== ENCOUNTER 2025-03-05 03:20 | Day surgery (SDC) | payer MEDICARE, SELFPAY ==
--- NOTE | 2025-02-13 08:00 | PC.NURSE ---
Report to the Outpatient Waiting Room, entrance under the green pavilion located off [facility], at time __11 am on date _03/05/25 . Planned Procedure Time: _1:00 pm .? Time changes happen often and if your time is changed the preop area will call you the afternoon before. - You and your visitor will be asked to self-screen and do not enter if you have any COVID symptoms. Please call surgeon if you need to reschedule. - A mask is optional within the hospital at this time. Patients may have clear liquids (water, carbonated beverages, clear teas, apple juice) until 3 hours prior to surgery ( 10 am)with a maximum of 20 ounces. - No food from midnight until time of surgery and no smoking, or chewing tobacco (or any form of nicotine). No chewing gum, candy or mints. Take only the following medications with a SIP of water on the morning of surgery: _PAROXETINE TAKE 1/2 OF MORNING DOSE OF INSULIN DO NOT STOP ANY OF YOUR OTHER PRESCRIPTION MEDICATIONS PRIOR TO SURGERY EXCEPT THE FOLLOWING Hold all vitamins and supplements for 3 days per anesthesiologist.LAST DOSE 03/01/25 Medications to discontinue per physician NONE Please no make-up, nail swedish, hairspray, perfume, deodorant, or body powder the day of surgery.? No jewelry (including any body piercings) or valuables the day of surgery, leave them at home.? Please take a shower or bath the night before, or the morning of, surgery with an antibacterial soap.? Wear comfortable, loose fitting clothing.? Children are encouraged to wear pajamas. - Jewelry must be removed prior to entering the operating room.? Rings and piercings that are not removed may be cut off. - The hospital will not accept responsibility for valuables.? - Please leave all valuables, including medications, at home the day of surgery. If you are going home after surgery, a licensed mobile lounge driver must drive you home.? - NO public transportation without another adult if you receive anesthesia. - We recommend that an adult stay with you for 24 hours following discharge. - We also recommend that you do not drive, make important decision, drink alcoholic beverages, or take any drugs that were not prescribed by your health care provider for at least 24 hours after your discharge time. For Pediatric surgeries, we recommend two adults accompany the child home. Follow any additional instructions given to you from your surgeon. VERBAL AND WRITTEN instructions given to _PATIENT_AND WIFE and asked if any additional questions and then verbalized understanding. Patient advised to call surgeon office or pre surgery nurse liaison [phone] if any additional questions.
[2025-02-13 08:04] VITALS: BMI 31.5
[2025-02-13 08:47] VITALS: BP 106/63; PULSE 80; RESP 18; TEMP 36.6; O2SAT 99
[2025-03-05] VITALS (11 sets, daily range): BP systolic 114–131; BP diastolic 54–75; PULSE 68–85; RESP 10–18; TEMP 36.3–36.6; O2SAT 94–100
--- NOTE | ~2025-03-05 | XR_ITS ---
EXAMINATION: [id number] DATE: 03/05/2025 15:23 INDICATION: Postoperative evaluation following left total knee arthroplasty. TECHNIQUE: Anteroposterior and lateral views of the left knee were obtained. COMPARISON: None. FINDINGS: Left total knee arthroplasty with patellar resurfacing appears well seated and in near anatomic align ment. No fractures identified. Expected postoperative subcutaneous and intra-articular gas. IMPRESSION: 1. Left total knee arthroplasty, negative for postoperative purposes. Reviewed, dictated and finalized at location A.
--- OUTSIDE RECORDS SUMMARY | 2025-03-05 03:23 | XMS_ITS | Clinical Summary ---
Author Organization [facility] Address [address] [place] [address] Care Team Providers Care Director Telecommunications Name Role Phone Unavailable Primary Care Provider Unavailabl e Source Comments [facility],non-owned Affiliates and Associated Physician Practices is amultiple site organization consisting of ambulatory clinics and hospital sitesin [place], [place], [place] and [place]. This disclosure is being madepursuant to the Care Everywhere program and may not contain all information available regarding this patient. 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 Gender Identity Not on file Sexual Orientation [...] Name:MAGDIEL BARBA Subscriber ID:Not on file Address: [address] [place] [address] Payer ID:Not on file Group ID:Not on file Type:Self Pay Address: [facility] MANAGED MEDICARE ADV SELF PAY NO INSURANCE Member Subscriber Plan / Payer (Ef fective for All Dates) Name:Magdiel Barba Member ID:Not on file Relation to Subscriber:Not on file Name:JAMESONMAGDIEL CASTORENA Subscriber ID:Not on file Address: [address] [place] [address] Payer ID:Not on file Group ID:Not on file Type:Self Pay Address: [facility] MANAGED MEDICARE ADV SELF PAY NO INSURANCE Member Subscriber Plan / Payer (Ef fective for All Dates) Name:Magdiel Barba Member ID:Not on file Relation to Subscriber:Not on file Name:MADGIEL BARBA Subscriber ID:Not on file Address: [address] [place] [address] Payer ID:Not on file Group ID:Not on file Type:Self Pay Address: [facility] MANAGED MEDICARE ADV
--- OUTSIDE RECORDS SUMMARY | 2025-03-05 03:23 | XMS_ITS | Clinical Summary ---
Author Organization [facility] Address [address] [place] [address] Care Team Providers Care Building Mechanic Name Role Phone Unavailable Primary Care Provider [...]
--- OUTSIDE RECORDS SUMMARY | 2025-03-05 03:23 | XMS_ITS | Continuity of Care Document ---
Author Organization [facility] Address [address] [place] [address] Phone Care Team Providers Care Grades 9 Thru 12 Visiting Teacher Name Role Phone José Antonio Douglas DO Unavailable Unavailable Advance Directives Directive Yes / No Effective Date File Name No Information Encounters Encounter Description Practice Location Reason(s) For Visit Diagnoses Date Provider Providers Copied on Encounter [facility], [address], [place], [place], [id number], tel:[phone] [facility] No Information Misael Sánchez. [address] [place], [address], . tel: [phone] Family History Family Member Type Diagnosis Age [...]
--- NOTE | 2025-03-05 07:15 | WPDHPUPDATE1 ---
History and Physical Update Update Date/Time: 03/05/25 07:15 History and Physical has been reviewed, including an updated exam of the patient. There are NO changes in the patient's condition. Risks, benefits, and alternatives have been discussed and questions answered. Patient agrees to proceed with procedure.
[2025-03-05] MEDS: TRANEXAMIC ACID 1,000MG/ISO100 1,000 MG/100 ML BAG 200 MG IVPB (11:30)
[2025-03-05] MEDS: ACETAMINOPHEN 500 MG TABLET 1000 MG PO (11:48)
--- NOTE | 2025-03-05 12:27 | P.PNAN_ITS ---
Anes - Initial Pre Proc Eval Procedure: Operation Date: 03/05/25 13:00 Proposed Procedures p Left Custom Total Knee Arthroplasty - Nasim Bonner MD Date/Time: 03/05/25 12:27 Surgeon: Nasim Bonner MD Pre Op Diagnosis: primary oa left knee Patient Data Age: 69 Gender: M Height: 1.73 m Weight: 93.8 kg Last Vital Signs Temp 97.3 F L 03/05/25 11:58 Pulse 68 03/05/25 11:58 Resp 16 03/05/25 11:58 BP 120/75 03/05/25 11:58 Pulse Ox 100 03/05/25 11:58 O2 Del Method Room Air 03/05/25 11:58 Allergies Allergy/AdvReac Type Severity Reaction Status Date / Time No Known Allergies Allergy Verified 03/05/25 11:56 Home Medications ?Medication ?Instructions ?Recorded ?Confirmed ?Type mecobalamin (vitamin B12) 1,000 1,000 mcg PO DAILY #90 tabs 09/24/22 02/21/25 Rx mcg chewable tablet paroxetine HCl 20 mg tablet 20 mg PO QAM 12/20/23 03/05/25 History sildenafil 100 mg tablet 100 mg PO DAILY PRN sexual 12/26/23 02/21/25 Rx activity #8 tabs lisinopril 20 mg tablet 20 mg PO DAILY #90 tabs 03/30/24 02/21/25 Rx acetaminophen 500 mg capsule 1,000 mg PO Q6H PRN Pain 05/08/24 02/21/25 History triamcinolone acetonide 0.5 % 1 applic topical DAILY PRN Skin 05/08/24 02/21/25 History topical cream Irritation blood sugar diagnostic (OneTouch #500 ea 07/04/24 02/21/25 Rx Ultra Test strips) glimepiride 4 mg tablet See Rx Instructions .Route 07/04/24 02/21/25 Rx .COMPLEX #90 tabs glucagon 1 mg/0.2 mL subcutaneous 1 mg (0.2 mL) subcut ONCE #0.4 mL 07/04/24 02/21/25 Rx auto-injector (Gvoke HypoPen 2-Pack) glucose 4 gram chewable tablet 16 g (4 x 4 gram) PO Q15M PRN 07/04/24 02/21/25 Rx hypoglycemia #360 tabs metformin 500 mg tablet See Rx Instructions .Route 07/31/24 02/21/25 Rx .COMPLEX #360 tabs diphenhydramine 38 1 tablet PO HS PRN insomnia 02/13/25 02/21/25 History mg-acetaminophen 500 mg tablet empagliflozin 25 mg tablet 25 mg PO DAILY #90 tabs 02/21/25 02/21/25 Rx (Jardiance) insulin degludec 100 unit/mL (3 10 unit (0.1 mL) subcut DAILY #15 02/21/25 03/05/25 Rx mL) subcutaneous pen (Tresiba mL FlexTouch U-100 insulin) semaglutide 2 mg/dose (8 mg/3 mL) 2 mg (0.75 mL) subcut WEEKLY #9 mL 02/21/25 02/21/25 Rx subcutaneous pen injector (Ozempic) atorvastatin 20 mg tablet See Rx Instructions .Route 02/26/25 Rx .COMPLEX #90 tabs Laboratory Tests 03/05/25 03/05/25 11:37 11:41 POC Capillary Glucose 105 mg/dl (65-105) Blood Type Pending Antibody Screen Pending Patient hx anesthesia problems: none Family hx anesthesia problems: none Results Review: All pre-operative results and documents have been reviewed as part of the pre- operative evaluation. [facility] Past Medical History Medical History Type 2 diabetes mellitus with other specified complication Type 2 diabetes mellitus without complications Pure hypercholesterolemia Other fatigue Numbness in both hands Joint contracture Epidermoid cyst of face Prostate cancer screening Fatigue Sore throat History of colon polyps Diabetes Hyperlipidemia Dupuytren's contracture of both hands Essential (primary) hypertension Psoriasis, unspecified Surgical History Surgical History History of hand surgery Hx of repair of rotator cuff right shoulder History of left knee surgery meniscus repair Family History Family History Mother Hypertension Father Family history of genitourinary disease Family history of Alzheimer's disease Sibling Family history of lung disease Social History Social History Smoking packs per day: 1 Smoking cigarettes per day: 20.0 Years smoked: 40 Smoking pack-years: 40.00 Smoking status: Former smoker Tobacco type: cigarettes Second hand tobacco smoke exposure: No Smoking end date: 01/22/19 Additional smoking assessment comments: DENIES ANY FORM OF TOBACCO USE Alcohol intake: current Drinks per week: 3 Alcohol use details: 2-3 x per week Substance use: never Substance use type: does not use Lack of Transportation: No Lack of Food: Never True Current Housing: I Have Housing Concerned About Future Housing: No Difficulty Paying Gas/Electric Bills: No Difficulty Paying for Meds: No Currently Unemployed: No Education: High School Diploma/GED Difficulty w/ Childcare or Family Care: No Living arrangements: with family Additional living arrangements comments: Spiritual care concerns: No Anes - Eval Final PreProcedure Day of Procedure 03/05/25 12:27 Patient weight: obese Lungs: normal air movement Airway: Mallampati scale class II Neurological: alert and oriented Last oral intake: >/= 8 hours ASA classification: III Emergent: no Anesthetic plan: proceed Anesthesia type and monitoring: general ETT and standard monitoring Results Review: All pre-operative results and documents have been reviewed as part of the pre- operative evaluation. HTN, hyperlipidemia, DM fsbs 105, ex smoker quit 2019. BMI 31. Pt overall active, walked at the [facility] yesterday without cp or sob. Informed Consent: The patient's anesthetic plan and its attendant risks and benefits were discussed with the patient/family/POA. Questions were solicited and answers provided to the satisfaction of the patient/family/POA.
[2025-03-05] MEDS: ceFAZolin 2 GM in SODIUM CHLORIDE 0.9% IV 50 ML 100 ML IVPB (12:40)
[2025-03-05] MEDS: SODIUM CHLORIDE 0.9% IV 37.7 ML, MORPHINE SULFATE INJ (*CRX) 2 MG, ROPivacaine HCL 1% 2... INFILTRATE (13:16)
[2025-03-05] MEDS: GENTAMICIN BONE CEMENT REFOBACIN 1 EACH TOPICAL (14:05)
--- NOTE | 2025-03-05 14:10 | SUR.OPER ---
Dr. Bonner made aware of 60 minute tourniquet time, an additional 30 minutes of tourniquet time was added to procedure per Dr. Bonner
--- NOTE | 2025-03-05 15:33 | P.OP_ITS ---
Procedure Note - Detailed Date of Procedure 03/05/25 Pre-op Diagnosis Left knee degenerative arthritis. Post-op Diagnosis Same Procedure Performed Custom total knee arthroplasty, left. Surgeon Nasim Bonner MD Anesthesia General Findings Custom implants optimal fit. Severe disease with contracture and valgus deformity. Contracted soft tissues. Posterior medial capsule release and extraarticular IT band release. Description of Procedure Preoperative antibiotics were given. The limb was prepped and draped in the usual sterile fashion with a well-padded tourniquet high on the thigh. The limb was exsanguinated and the tourniquet inflated to 300 mmHg. A longitudinal incision was created just medial to the patella. A trivector approach to the knee was performed. Arthrotomy was taken down through the joint capsule. No significant releases were initially taken. The femur was exposed and the F1 jig was applied. The coring tool was used to remove the cartilage for the F2 jig to sit flush with the bone. The jig was pinned and the distal cut carefully taken. Caliper measurements confirmed appropriate bony resections according to the preoperative templated plan. The F4 cutting jig for the femur was applied, at the standard rotation. The AP and anterior chamfer cuts were taken. The F5 jig was applied and the posterior chamfer cuts were taken. The tibia was prepared using the T1 jig, after removing cartilage for the jig contact points. Proper alignment was checked with the alignment del. The tibia was cut using the T1u guide. Gap balancing was performed. Gap measurements were taken and the knee was trialed. Excellent alignment and soft tissue balancing was confirmed. The posterior cruciate ligament was recessed along the proximal tibia. The patella was cut for resurfacing. Three lug holes were drilled. Meniscal remnants were removed. The trial components were assembled. Posterior capsule release and IT band release were required. Motion regained from 5 - 120 degrees. Patellar tracking was excellent. The knee was copiously irrigated periodically throughout the procedure. The real implants were cemented into position. Excess cement was carefully removed. The wound was closed in layers with interrupted #1 Vicryl suture, 2-0 strata fix suture, 0 strata fix suture, 2-0 strata fix suture. Steri-Strips placed on the skin with the knee flexed. Sterile bulky dressing applied. The patient was brought to the recovery room in stable condition. There were no complications. Implants Conformis Custom total knee arthroplasty. Cemented. Cruciate retaining. 7A ins ert. 38 mm oval patella. Estimated Blood Loss 50 Tourniquet Time Total Tourniquet Time: 72 Drains No Complications No immediate complications Condition Stable Disposition PACU [facility] Billing Surgery - Charge Forward: Surgery Billing
--- NOTE | 2025-03-05 16:00 | SUR.PHASEI ---
Patient meets PACU discharge criteria, unit bed unavailable at this time. Patient placed in extended recovery status.
--- NOTE | 2025-03-05 18:35 | PC.NURSE ---
This patient, James Barba, was admitted to [facility] Surg Room 326-01 at 1835. Patient/family oriented to hospital policies and general routines including ID bracelet, bed and alarms, visiting hours, pain management, procedures, bathroom and other care routines, personal items, smoking policy, room service/diet, and visiting hours. Information on how to activate the Rapid Response Team has been discussed. Patient/Family are encouraged to report perceived risks to care and to ask questions if they do not understand what they are told or what they should do.
[2025-03-05] MEDS: ACETAMINOPHEN 325 MG TABLET 650 MG PO (19:54)
[2025-03-05] MEDS: ASPIRIN 81 MG ENTERIC TABLET PO (19:55)
[2025-03-05] MEDS: SENNA/DOCUSATE SODIUM TABLET 2 TAB PO (19:55)
[2025-03-05] MEDS: MELOXICAM 7.5 MG TABLET PO (19:56)
[2025-03-05] MEDS: ceFAZolin 2 GM/D5W 50 ML 2 GM/50 ML BAG IVPB (20:00)
[2025-03-06 00:04] VITALS: BP 103/73; PULSE 84; RESP 20; TEMP 37.1; O2SAT 98
[2025-03-06 04:07] VITALS: BP 117/81; PULSE 74; RESP 16; TEMP 36.7; O2SAT 96
[2025-03-06] MEDS: ceFAZolin 2 GM/D5W 50 ML 2 GM/50 ML BAG IVPB ×2 (05:18→11:30)
[2025-03-06] MEDS: ACETAMINOPHEN 325 MG TABLET 650 MG PO (05:23)
[2025-03-06 06:46] LABS: Hematocrit 32.3 % (42.0-52.0); Hemoglobin 10.8 g/dL (14.0-18.0); Immature Granulocyte Percent A 0.5 % (0-0.5); Lymphocytes Absolute Auto 0.98 K/mm3 (0.9-3.2); Mean Corpuscular HGB Conc 33.4 g/dl (32-36); Mean Corpuscular Hemoglobin 30.7 pg (26-34); Mean Corpuscular Volume 91.8 fl (80-100); Nucleated Red Blood Cells Absolute Auto 0.000 K/mm3 (0.0-0.012); Nucleated Red Blood Cells Perc 0.0 % (0.0-0.2); Platelet Count Result 238 k/mm3 (150-375); Red Blood Count 3.52 M/mm3 (4.6-6.20); White Blood Count 10.9 K/mm3 (4.5-10.0)
[2025-03-06 07:10] LABS: Anion Gap 7 mmol/L (4-12); Blood Urea Nitrogen 27 mg/dL (9-20); Calcium 8.6 mg/dL (8.4-10.2); Carbon Dioxide 21 mmol/L (22-30); Chloride 105 mmol/L (98-107); Estimated CRCL calculation 88 ml/min; Estimated Glomerular Filt Rate > 60; Glucose 143 mg/dL (65-110); Potassium 4.4 mmol/L (3.4-5.0); Sodium 133 mmol/L (137-145)
[2025-03-06 08:00] VITALS: BP 118/74; PULSE 84; RESP 18; TEMP 36.8; O2SAT 98
[2025-03-06] MEDS: ASPIRIN 81 MG ENTERIC TABLET PO (08:42)
[2025-03-06] MEDS: GLIMEPIRIDE 2 MG TABLET 4 MG PO (08:42)
[2025-03-06] MEDS: SENNA/DOCUSATE SODIUM TABLET 2 TAB PO (08:43)
[2025-03-06] MEDS: MELOXICAM 7.5 MG TABLET PO (08:43)
[2025-03-06] MEDS: CYANOCOBALAMIN 1,000 MCG TABLET 1000 MCG PO (08:43)
[2025-03-06] MEDS: INSULIN GLARGINE (*BKC) 100 UNITS/ML 10 UNITS SUB-Q (08:44)
--- NOTE | 2025-03-06 10:16 | P.CONIM_ITS ---
Assessment and Plan Assessment and plan (1) Type 2 diabetes mellitus without complications: Code(s): E11.9 - Type 2 diabetes mellitus without complications Status: Acute Assessment and Plan: * Accuchecks qid. * Metformin 1,000 mg PO q12, Lantus 10 units subq at bedtime, Glimepiride 4 mg BID AC, and SSI. * Hypoglycemic protocol. (2) Essential (primary) hypertension: Code(s): I10 - Essential (primary) hypertension Status: Acute Assessment and Plan: * BP 118/74. * Continue Lisinopril 20 mg PO daily. (3) Hyperlipidemia: Code(s): E78.5 - Hyperlipidemia, unspecified Status: Acute Assessment and Plan: * Continue Atorvastatin 20 mg PO daily. (4) Status post total knee replacement, left: Code(s): Z96.652 - Presence of left artificial knee joint Status: Acute Assessment and Plan: * Left knee replacement on 03/05. * Ortho primary. * IV Ancef. * Pain control. * PT/OT. * Ice machine, Teds. HPI Date of Consult Consult date: 03/06/25 Requesting Physician: Nasim Bonner MD Primary Care Provider: Imelda Jaramillo, PA-C Consult Narrative Narrative: James Barba is a 69 year old male that received a left knee replacement on 03/05 and hospitalist consulted for medical management. Patient reports that pain in left knee is a 3, constant, and dull. Patient denies chest pain, palpitations, headache, dizziness, nausea, or vomiting. Eating and drinking well. Review of Systems 2 Review of Systems: All systems reviewed & are unremarkable except as noted in HPI and below PMFSH Past Medical History Medical History (Updated 03/05/25 @ 15:31 by Nasim Bonner MD) Type 2 diabetes mellitus with other specified complication Type 2 diabetes mellitus without complications Pure hypercholesterolemia Other fatigue Numbness in both hands Joint contracture Epidermoid cyst of face Prostate cancer screening Fatigue Sore throat History of colon polyps Diabetes Hyperlipidemia Dupuytren's contracture of both hands Essential (primary) hypertension Psoriasis, unspecified Surgical History Surgical History (Updated 03/05/25 @ 15:31 by Nasim Bonner MD) Status post total knee replacement, left History of hand surgery Hx of repair of rotator cuff right shoulder History of left knee surgery meniscus repair Family History Family History Mother Hypertension Father Family history of genitourinary disease Family history of Alzheimer's disease Sibling Family history of lung disease Social History Social History Smoking packs per day: 1 Smoking cigarettes per day: 20.0 Years smoked: 40 Smoking pack-years: 40.00 Smoking status: Former smoker Tobacco type: cigarettes Second hand tobacco smoke exposure: Yes Smoking end date: 01/22/19 Additional smoking assessment comments: DENIES ANY FORM OF TOBACCO USE Alcohol intake: never Drinks per week: 3 Alcohol use details: 2-3 x per week Substance use: never Substance use type: does not use Lack of Transportation: No Lack of Food: Never True Current Housing: I Have Housing Concerned About Future Housing: No Difficulty Paying Gas/Electric Bills: No Difficulty Paying for Meds: No Currently Unemployed: No Education: High School Diploma/GED Difficulty w/ Childcare or Family Care: No Living arrangements: with family Additional living arrangements comments: Spiritual care concerns: No Meds Home Medications and Allergies Home Medications ?Medication ?Instructions ?Recorded ?Confirmed ?Type mecobalamin (vitamin B12) 1,000 1,000 mcg PO DAILY #90 tabs 09/24/22 02/21/25 Rx mcg chewable tablet paroxetine HCl 20 mg tablet 20 mg PO QAM 12/20/23 03/05/25 History sildenafil 100 mg tablet 100 mg PO DAILY PRN sexual 12/26/23 02/21/25 Rx activity #8 tabs lisinopril 20 mg tablet 20 mg PO DAILY #90 tabs 03/30/24 02/21/25 Rx acetaminophen 500 mg capsule 1,000 mg PO Q6H PRN Pain 05/08/24 02/21/25 History triamcinolone acetonide 0.5 % 1 applic topical DAILY PRN Skin 05/08/24 02/21/25 History topical cream Irritation blood sugar diagnostic (OneTouch #500 ea 07/04/24 03/05/25 Rx Ultra Test strips) glimepiride 4 mg tablet See Rx Instructions .Route 07/04/24 02/21/25 Rx .COMPLEX #90 tabs glucagon 1 mg/0.2 mL subcutaneous 1 mg (0.2 mL) subcut ONCE #0.4 mL 07/04/24 02/21/25 Rx auto-injector (Gvoke HypoPen 2-Pack) glucose 4 gram chewable tablet 16 g (4 x 4 gram) PO Q15M PRN 07/04/24 02/21/25 Rx hypoglycemia #360 tabs metformin 500 mg tablet See Rx Instructions .Route 07/31/24 02/21/25 Rx .COMPLEX #360 tabs diphenhydramine 38 1 tablet PO HS PRN insomnia 02/13/25 02/21/25 History mg-acetaminophen 500 mg tablet empagliflozin 25 mg tablet 25 mg PO DAILY #90 tabs 02/21/25 03/06/25 Rx (Jardiance) insulin degludec 100 unit/mL (3 10 unit (0.1 mL) subcut DAILY #15 02/21/25 03/05/25 Rx mL) subcutaneous pen (Tresiba mL FlexTouch U-100 insulin) semaglutide 2 mg/dose (8 mg/3 mL) 2 mg (0.75 mL) subcut WEEKLY #9 mL 02/21/25 03/06/25 Rx subcutaneous pen injector (Ozempic) atorvastatin 20 mg tablet See Rx Instructions .Route 02/26/25 03/06/25 Rx .COMPLEX #90 tabs aspirin 81 mg tablet,delayed 81 mg PO BID #28 tabs 03/05/25 Rx release (Enteric Coated Aspirin) meloxicam 15 mg tablet 15 mg PO DAILY #30 tabs 03/05/25 Rx oxycodone-acetaminophen 5 mg-325 1 - 2 tablet PO Q6H PRN pain #30 03/05/25 Rx mg tablet tabs prednisone 5 mg tablet 5 mg PO DAILY #21 tabs 03/05/25 Rx Allergies Allergy/AdvReac Type Severity Reaction Status Date / Time No Known Allergies Allergy Verified 03/05/25 11:56 Vital Signs Vital Signs - 24 hr 03/05/25 11:58 03/05/25 15:06 03/05/25 15:20 Temperature 97.3 F L 97.3 F L Pulse Rate 68 80 79 Respiratory Rate 16 10 L 12 Blood Pressure 120/75 131/67 124/65 Pulse Oximetry 100 99 94 Oxygen Delivery Room Air Simple Face Mask Simple Face Mask Oxygen Flow Rate 8 8 03/05/25 15:35 03/05/25 15:50 03/05/25 16:00 Temperature Pulse Rate 76 79 77 Respiratory Rate 14 14 15 Blood Pressure 124/65 125/67 117/68 Pulse Oximetry 95 95 95 Oxygen Delivery Nasal Cannula Nasal Cannula Nasal Cannula Oxygen Flow Rate 2 2 2 03/05/25 16:30 03/05/25 17:00 03/05/25 17:30 Temperature Pulse Rate 79 74 72 Respiratory Rate 12 16 Blood Pressure 121/74 120/54 L 123/66 Pulse Oximetry 99 99 Oxygen Delivery Nasal Cannula Nasal Cannula Nasal Cannula Oxygen Flow Rate 2 2 2 03/05/25 18:00 03/05/25 19:55 03/05/25 20:07 Temperature 97.9 F Pulse Rate 85 83 Respiratory Rate 16 18 Blood Pressure 114/68 115/71 Pulse Oximetry 99 97 Oxygen Delivery Nasal Cannula Room Air Oxygen Flow Rate 2 03/06/25 00:04 03/06/25 04:07 03/06/25 08:00 Temperature 98.7 F 98.1 F 98.2 F Pulse Rate 84 74 84 Respiratory Rate 20 16 18 Blood Pressure 103/73 117/81 118/74 Pulse Oximetry 98 96 98 Oxygen Delivery Oxygen Flow Rate 03/06/25 08:27 Temperature Pulse Rate Respiratory Rate Blood Pressure Pulse Oximetry Oxygen Delivery Room Air Oxygen Flow Rate Exam 2 Const: General: no acute distress HENMT: Mouth: Yes moist mucous membranes Eyes: Sclera: sclerae normal Resp: Effort & Inspection: normal respiratory effort Auscultation: clear to auscultation bilaterally Cardio: Rate: regular rate Rhythm: regular rhythm Skin: General skin exam: normal color and no rashes or lesions noted Neuro: Speech: normal speech Extrem: General: no pedal edema Other: Jose hose bilateral. Psych: Mental Status: mental status grossly normal Affect: normal affect Results Labs 03/06/25 06:31 03/06/25 06:31 Labs: Short CBC 03/06/25 Range/Units 06:31 WBC 10.9 H (4.5-10.0) K/mm3 Hgb 10.8 L (14.0-18.0) g/dL Hct 32.3 L (42.0-52.0) % Plt Count 238 (150-375) k/mm3 BMP 08/13/25 06:31 Sodium 133 L Potassium 4.4 Chloride 105 Carbon Dioxide 21 L BUN 27 H D Creatinine 0.74 Glucose 143 H Calcium 8.6 Hospitalist MIPS Advance Care Plan I have confirmed that the patient's Advanced Care Plan is present, code status is documented, or surrogate decision maker is listed in patient medical record.: Yes Medication Reconciliation I have utilized all available resources to obtain, update and review the patients current medications (includes all prescriptions, OTC, herbals, cannabis, and nutritional supplements).: Yes
== END 2025-03-06 12:42 | disposition home or self-care (01) ==
LOC: ANHSURGERY 15:30 → ANH3MEDSUR 18:25
PROVIDERS: PCP Physician Assistant; Visit Provider Orthopaedic Surgery
PROC: (CPT 27447; principal; 2025-03-05 13:00)
DX: M17.12 Unilateral primary osteoarthritis, left knee (principal); I10 Essential (primary) hypertension; E11.69 Type 2 diabetes mellitus with other specified complication; E78.00 Pure hypercholesterolemia, unspecified; R53.83 Other fatigue; L40.9 Psoriasis, unspecified; E66.9 Obesity, unspecified; Z68.31 Body mass index [BMI] 31.0-31.9, adult; Z79.891 Long term (current) use of opiate analgesic; Z79.84 Long term (current) use of oral hypoglycemic drugs; Z79.85 Long-term (current) use of injectable non-insulin antidiabetic drugs; Z79.4 Long term (current) use of insulin; Z98.890 Other specified postprocedural states; Z86.0100 Personal history of colon polyps, unspecified; Z87.891 Personal history of nicotine dependence
CPT/HCPCS: 27447; 36415; 73560; 80048; 82948; 85025; 86850; 86900; 86901; 97110; 97161; 97165; 97535; J0690; A9270; C1713; C1776; J0166; J1100; J1171; J1815; J1885; J2250; J2270; J2405; J2704; J2795; J3010; J7512

== ENCOUNTER 2025-04-16 10:17 | Outpatient (CLI) | payer MEDICARE, SELFPAY ==
--- NOTE | ~2025-04-16 | CT_ITS ---
EXAMINATION: CT_LERTCWO_CT DATE: 04/16/2025 10:43 INDICATION: Right knee osteoarthritis. Preoperative planning. TECHNIQUE: Computed tomography (CT) of the right lower limb was performed without intravenous contrast. Automated exposure control and iterative reconstruction technique were employed. The dose-length product was 1897.87 mGy-cm. COMPARISON: Right knee radiographs 10/26/2024 FINDINGS: There is moderate right hip osteoarthritis. There is moderate osteoarthritis of lateral compartment and mild osteoarthritis of medial and patellofemoral compartments. There is a small knee joint effusion. There is a small Townsend's cyst. IMPRESSION: 1. Moderate right knee osteoarthritis. 2. Small right knee joint effusion. 3. Small Townsend's cyst. Reviewed, dictated and finalized at location E.
--- OUTSIDE RECORDS SUMMARY | 2025-04-16 11:09 | XMS_ITS | Clinical Summary ---
Author Organization [facility] Address [address] [place] [address] Care Team Providers Care Senior Medical Writer Name Role Phone Unavailable Primary Care Provider [...] COVID-19 Vaccine ( - 2023-2 5 season) 2025 RSV Immunization or 60+ Years (1 - [...]
--- OUTSIDE RECORDS SUMMARY | 2025-04-16 11:09 | XMS_ITS | Clinical Summary ---
Author Organization [facility] Address [address] [place] [address] Care Team Providers Care Pump Operator Name Role Phone Unavailable Primary Care Provider Unavailabl e Source Comments [email or web address],non-owned Affiliates and Associated Physician Practices is amultiple site organization consisting of ambulatory clinics and hospital sitesin [place], [place], [place] and [place]. This disclosure is being madepursuant to the Care Everywhere program and may not contain all information available regarding this patient. 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 Gender Identity Not on file Sexual Orientation [...] 11/23/2003 ZOSTER VACCINE (1 of 2) 11/23/2003 DEPRESSION SCREENING 07/25/2024 MEDICARE AWV CALENDAR YEAR 2024 COVID-19 VACCINE (1 - 2023-2 5 season) 2025 INFLUENZA VACCINE (#1) 2025 Respiratory Syncytial Virus [...] Name:MAGDIEL BARBA Subscriber ID:Not on file Address: [address] [place] [address] Payer ID:Not on file Group ID:Not on file Type:Self Pay Address: [facility] MANAGED MEDICARE ADV SELF PAY NO INSURANCE Member Subscriber Plan / Payer (Ef fective for All Dates) Name:Magdiel Barba Member ID:Not on file Relation to Subscriber:Not on file Name:JAMESONMAGDIEL CASTORENA Subscriber ID:Not on file Address: [address] [place] [address] Payer ID:Not on file Group ID:Not on file Type:Self Pay Address: [facility] MANAGED MEDICARE ADV SELF PAY NO INSURANCE Member Subscriber Plan / Payer (Ef fective for All Dates) Name:Magdiel Barba Member ID:Not on file Relation to Subscriber:Not on file Name:MAGDIEL BARBA Subscriber ID:Not on file Address: [address] [place] [address] Payer ID:Not on file Group ID:Not on file Type:Self Pay Address: [facility] MANAGED MEDICARE ADV
== END 2025-04-16 10:18 | disposition home or self-care (01) ==
PROVIDERS: PCP Physician Assistant; Visit Provider Orthopaedic Surgery
DX: M17.11 Unilateral primary osteoarthritis, right knee (principal); M25.461 Effusion, right knee; M71.21 Synovial cyst of popliteal space [Baker], right knee
CPT/HCPCS: 73700

== ENCOUNTER 2025-04-29 09:11 | Outpatient (CLI) | payer MEDICARE, SELFPAY ==
--- OUTSIDE RECORDS SUMMARY | 2025-04-29 09:57 | XMS_ITS | Clinical Summary ---
Author Organization [facility] Address [address] [place] [address] Care Team Providers Care Retail Banker Name Role Phone Unavailable Primary Care Provider Unavailabl e Source Comments [facility] [employer],non-owned Affiliates and Associated Physician Practices is amultiple site organization consisting of ambulatory clinics and hospital sitesin [place], [place], [place] and [place]. This disclosure is being madepursuant to the Care Everywhere program and may not contain all information available regarding this patient. Last updated 18.[facility] [employer] Social History Tobacco Use Types Packs/Day Years Used Date Smoking Tobacco: Never Assessed Sex and Gender Information Value Date Recorded Sex Assigned at Not on file Legal Sex Male 5:29 AM [employer] Gender Identity Not on file Sexual Orientation [...] Name:MAGDIEL BARBA Subscriber ID:Not on file Address: [address] [place] [address] Payer ID:Not on file Group ID:Not on file Type:Self Pay Address: [facility] MANAGED MEDICARE ADV SELF PAY NO INSURANCE Member Subscriber Plan / Payer (Ef fective for All Dates) Name:Magdiel Barba Member ID:Not on file Relation to Subscriber:Not on file Name:JAMESONMAGDIEL CASTORENA Subscriber ID:Not on file Address: [address] [place] [address] Payer ID:Not on file Group ID:Not on file Type:Self Pay Address: [facility] MANAGED MEDICARE ADV SELF PAY NO INSURANCE Member Subscriber Plan / Payer (Ef fective for All Dates) Name:Magdiel Barba Member ID:Not on file Relation to Subscriber:Not on file Name:MAGDIEL BARBA Subscriber ID:Not on file Address: [address] [place] [address] Payer ID:Not on file Group ID:Not on file Type:Self Pay Address: [facility] MANAGED MEDICARE ADV
[2025-04-29 10:00] LABS: Hematocrit 42.5 % (42.0-52.0); Hemoglobin 14.0 g/dL (14.0-18.0)
[2025-04-29 10:21] LABS: Albumin Level 4.2 g/dL (3.5-5.1); Estimated Glomerular Filt Rate > 60; Glucose 123 mg/dL (65-110)
== END 2025-04-29 09:12 | disposition home or self-care (01) ==
LOC: ANHLAB 09:14
PROVIDERS: PCP Physician Assistant; Visit Provider Orthopaedic Surgery
DX: E78.5 Hyperlipidemia, unspecified (principal); I10 Essential (primary) hypertension; E53.8 Deficiency of other specified B group vitamins; E11.69 Type 2 diabetes mellitus with other specified complication
CPT/HCPCS: 36415; 82040; 82565; 82947; 85014; 85018